=== PATIENT | male | born 1930 | race Caucasian/White ===

== ENCOUNTER 2016-04-07 | Emergency (ER) | payer MEDICARE ==
[~2016-04-07] VITALS: Ht 185.4 cm; Wt 72.0 kg
[~2016-04-07] MED LIST: ALLO100T PO; ALPR.25 PO; ATOR10TA15 PO; BETH25 PO; CARD180C5 PO; CHLOR50 PO; COZA50TA PO; FURO20TA PO; GLIM2TAB PO; LEVE250 PO; MAGN400T PO; METF750T PO; METO25TA3 PO; PROS5TAB PO; TAMS0.4C4 PO; WARF-18 PO; WARF4TAB51 PO
[2016-04-07 00:11] VITALS: BP 149/65; PULSE 87; RESP 18; TEMP 98.1; O2SAT 97
[2016-04-07] MEDS ORDERED: SODIUM CHLORIDE 0.9% FLUSH 5 ML FLUSH IVF PRN (00:15)
[2016-04-07 00:17] VITALS: RESP 18
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
[2016-04-07 02:37] LABS: AUTOMATED NEUTROPHIL # 10.2 TH/MM3 (1.8-7.7); BASOPHIL % 0.3 % (0.0-2.0); EOSINOPHIL # 0.2 TH/MM3 (0-0.4); EOSINOPHIL % 1.5 % (0.0-4.0); HEMATOCRIT 33.6 % (39.0-51.0); HEMO FLAGS DIFF FINAL; LYMPH % 6.2 % (9.0-44.0); LYMPHOCYTE # 0.7 TH/MM3 (1.0-4.8); MEAN CELL VOLUME 91.5 FL (80.0-100.0); MEAN CORPUSCULAR HEMOGLOBIN 31.6 PG (27.0-34.0); MEAN CORPUSCULAR HGB CONC 34.5 % (32.0-36.0); MONO % 6.2 % (0.0-8.0); NEUT % 85.8 % (16.0-70.0); PLATELET COUNT 221 TH/MM3 (150-450); RED BLOOD COUNT 3.67 MIL/MM3 (4.50-5.90); RED CELL DISTRIBUTION WIDTH 13.5 % (11.6-17.2); WHITE BLOOD COUNT 11.9 TH/MM3 (4.0-11.0)
[2016-04-07 02:45] LABS: APTT (PATIENT) 40.6 SEC (24.3-30.1); INTERNATIONAL NORMALIZED RATIO 3.1 RATIO; PROTHROMBIN TIME - PATIENT 36.4 SEC (9.8-11.6)
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
[2016-04-07 03:14] VITALS: BP 158/71; PULSE 68; RESP 16; O2SAT 98
[2016-04-07 03:14] LABS: BICARBONATE 24.6 MEQ/L (21.0-32.0); POTASSIUM 4.7 MEQ/L (3.5-5.1)
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
== END 2016-04-07 04:44 | disposition home or self-care (01) ==
LOC: NEPC
DX: S00.03XA Contusion of scalp, initial encounter (principal); R68.84 Jaw pain; M54.2 Cervicalgia; Z79.01 Long term (current) use of anticoagulants; E78.00 Pure hypercholesterolemia, unspecified; Z86.73 Personal history of transient ischemic attack (TIA), and cerebral infarction without residual deficits; E11.9 Type 2 diabetes mellitus without complications; I10 Essential (primary) hypertension; R55 Syncope and collapse; V00.831A Fall from motorized mobility scooter, initial encounter; Y93.89 Activity, other specified; Y92.89 Other specified places as the place of occurrence of the external cause; Y99.8 Other external cause status
CPT/HCPCS: 70450; 70486; 71010; 72125; 73502; 80048; 85025; 85610; 85730

== ENCOUNTER 2017-01-27 21:58 | Observation (INO) | payer MEDICARE ==
[~2017-01-27] VITALS: Ht 170.2 cm; Wt 70.0 kg
[2017-01-27 22:08] VITALS: BP 226/95; PULSE 96; RESP 19; TEMP 97.5; TEMP 99.5; O2SAT 96
[2017-01-27 22:41] VITALS: RESP 19; O2SAT 96
[2017-01-27 22:51] LABS: AUTOMATED NEUTROPHIL # 4.7 TH/MM3 (1.8-7.7); BASOPHIL % 0.4 % (0.0-2.0); EOSINOPHIL # 0.3 TH/MM3 (0-0.4); EOSINOPHIL % 3.8 % (0.0-4.0); HEMATOCRIT 33.3 % (39.0-51.0); HEMO FLAGS DIFF FINAL; LYMPH % 24.9 % (9.0-44.0); LYMPHOCYTE # 1.8 TH/MM3 (1.0-4.8); MEAN CELL VOLUME 92.9 FL (80.0-100.0); MEAN CORPUSCULAR HEMOGLOBIN 31.3 PG (27.0-34.0); MEAN CORPUSCULAR HGB CONC 33.7 % (32.0-36.0); MONO % 7.5 % (0.0-8.0); NEUT % 63.4 % (16.0-70.0); PLATELET COUNT 248 TH/MM3 (150-450); RED BLOOD COUNT 3.58 MIL/MM3 (4.50-5.90); RED CELL DISTRIBUTION WIDTH 14.1 % (11.6-17.2); WHITE BLOOD COUNT 7.4 TH/MM3 (4.0-11.0)
[2017-01-27 22:54] LABS: BLOOD, URINE NEG (NEG); COMMENT (UR) CULT NOT INDICATED; CULTURE IF INDICATED CULT NOT INDICATED; GLUCOSE,URINE NEG (NEG); KETONE, URINE NEG (NEG); MUCUS URINE FEW /lpf (OCC); NITRITE,URINE NEG (NEG); PH, URINE 6.5 (5.0-8.5); SQUAMOUS EPITHELIAL CELL URINE <1 /hpf (0-5); URINE COLOR LIGHT-YELLOW (YELLW/STRAW)
--- NOTE | 2017-01-27 22:59 | RADRPT ---
EXAM DATE/TIME: 01/27/2017 22:38 [facility] COMPARISON: CHEST SINGLE AP, April 07, 2016, 1:22. INDICATIONS : Short of breath and confusion. MEDICAL HISTORY : Congestive hearrt failure. Hypertension. Diabetes. SURGICAL HISTORY : None. ENCOUNTER: Initial ACUITY: 1 day PAIN SCORE: 0/10 LOCATION: Bilateral chest FINDINGS: There is focal opacity in the lateral left lung base, similar to prior. Multiple rib deformities rela sangeetha to old trauma. Right lung is grossly clear. Hernia contours are stable and satisfactory for techn ique and projection. CONCLUSION: Stable chest appearance Ray Pop MD on January 27, 2017 at 22:57 Board Certified Radiologist. This report was verified electronically.
[2017-01-27 23:07] LABS: ANION GAP 9 MEQ/L (5-15); AST (GOT) 10 U/L (15-37); BICARBONATE 24.8 MEQ/L (21.0-32.0); BLOOD UREA NITROGEN 22 MG/DL (7-18); CHLORIDE 96 MEQ/L (98-107); GLOMERULAR FILTRATION RATE 57 ML/MIN (>89); POTASSIUM 4.5 MEQ/L (3.5-5.1); SODIUM (NA) 130 MEQ/L (136-145)
[2017-01-27 23:12] LABS: ALKALINE PHOSPHATASE 83 U/L (45-117); ALT (GPT) 17 U/L (12-78); TOTAL BILIRUBIN ADULT 0.3 MG/DL (0.2-1.0)
[2017-01-27 23:13] LABS: CREATINE KINASE 26 U/L (39-308)
[2017-01-27 23:14] LABS: APTT (PATIENT) 29.9 SEC (24.3-30.1); INTERNATIONAL NORMALIZED RATIO 1.1 RATIO; PROTHROMBIN TIME - PATIENT 11.9 SEC (9.8-11.6)
--- NOTE | 2017-01-27 23:19 | RADRPT ---
EXAM DATE/TIME: 01/27/2017 23:07 [facility] COMPARISON: No previous studies available for comparison. INDICATIONS : Altered mental status. RADIATION DOSE: 33.72 CTDIvol (mGy) MEDICAL HISTORY : Cardiovascular disease. Renal calculi. Hypertension.Diabetes. CVA. SURGICAL HISTORY : Appendectomy. Prostatectomy. ENCOUNTER: Initial ACUITY: 1 day PAIN SCALE: 0/10 LOCATION: cranial TECHNIQUE: Multiple contiguous axial images were obtained of the head. Using automated exposure control and adj ustment of the mA and/or kV according to patient size, radiation dose was kept as low as reasonably a chievable to obtain optimal diagnostic quality images. DICOM format image data is available electro nically for review and comparison. FINDINGS: CEREBRUM: Remote infarct in the right basal ganglia with ex vacuo dilatation of the lateral ventricle. Scattere d areas of low-attenuation are seen throughout the white matter. There is cerebral atrophy. No eviden ce of midline shift, mass lesion, hemorrhage or acute infarction. No extra-axial fluid collections a re seen. POSTERIOR FOSSA: The cerebellum and brainstem are intact. The 4th ventricle is midline. The cerebellopontine angle i s unremarkable. EXTRACRANIAL: The visualized portion of the orbits is intact. SKULL: The calvaria is intact. No evidence of skull fracture. CONCLUSION: 1. Old right sided basal ganglia infarcts. 2. No acute intracranial abnormality. 3. Cerebral atrophy and chronic ischemic small vessel vasculopathy. David Lewis MD on January 27, 2017 at 23:15 Board Certified Radiologist. This report was verified electronically.
--- NOTE | 2017-01-27 23:48 | PD ---
HPI Chief Complaint: Altered Mental Status Time Seen by Provider: 22:11 Travel History International Travel<30 days: No Contact w/Intl Traveler<30days: No Traveled to known affect area: No History of Present Illness HPI The patient is an 86 year old male who presents to the [facility] emergency department with a history of reportedly not feeling well throughout the weekend according to his . The patient's reports that on Friday he was complaining of a headache over his right eye. She reports that she gave him Tylenol. She reports that he awoke in the night with an episode of nausea and vomiting. She reports that she took his temperature and he had an elevated temperature with a MAXIMUM TEMPERATURE of 100. She reports that on Friday he seemed listless and fatigued. The patient has increasing alteration of sensation according to his . She saw his primary care physician, Dr. Lin earlier today. The patient reportedly was diagnosed with pneumonia. The patient was given a prescription for antibiotic and started his first dose of Augmentin earlier this evening. The patient continued to get increasingly altered and agitated, therefore she decided to come into the emergency department for evaluation and treatment. The patient does have a prior history of altered mentation reportedly related to dehydration, as well as a hypertensive encephalopathy according to the record. 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 He reportedly gets around with the use of a ronald- walker and wheelchair. The patient on arrival is unable to provide any significant history. The patient appears agitated and is picking at the bed in the railing. When the patient is able to focus to answer questions, the patient will only answer yes or no to brief questions otherwise, the patient seems to be easily distracted. On review of systems otherwise, she denies him having any recent cough or congestion, neck pain, chest pain, shortness of breath, abdominal pain, diarrhea, urinary symptoms, or other focal neurologic symptoms. [facility] Past Medical History Narrative Medical The patient's past medical history is significant for a prior history of cerebrovascular accident with residual weakness of the left upper extremity, history of atrial fibrillation, history of seizure disorder, history of dementia , history of hypertension, hyperlipidemia, benign prostatic hypertrophy, history of skin cancer. Hx Anticoagulant Therapy: Yes Arthritis: Yes Asthma: Yes (POSSIBLE R/T ALLERGIES) Autoimmune Disease: No Blood Disorders: No Depression: Yes Heart Rhythm Problems: Yes (PREVIOUSLY DURING SPRING 2013) Cancer: Yes (SKIN, SURGICAL REMOVAL) Cardiovascular Problems: Yes High Cholesterol: Yes Chemotherapy: No Chest Pain: No Congestive Heart Failure: Yes COPD: No Cerebrovascular Accident: Yes Diabetes: Yes Patient Takes Glucophage: Yes Diminished Hearing: Yes (bilat hearing aid) Endocrine: Yes Gastrointestinal Disorders: Yes GERD: Yes Glaucoma: No Gout: Yes Genitourinary: Yes (ENLARGED PROSTATE) Headaches: No Hepatitis: No Hiatal Hernia: Yes Hypertension: Yes Immune Disorder: No Implanted Vascular Access Dvce: Yes Kidney Stones: Yes Medical other: Yes (back and neck problems,reflux,hiatel hernia,prostate disease) Musculoskeletal: Yes Neurologic: Yes Psychiatric: No Reproductive: No Respiratory: Yes Immunizations Current: Yes Migraines: No Radiation Therapy: No Renal Failure: No Seizures: No Sleep Apnea: No Thyroid Disease: No Ulcer: No Tetanus Vaccination: < 5 Years Past Surgical History Narrative Surgical Patient's past surgical history is significant for an appendectomy, left hip ORIF, skin cancer removal, bilateral cataract surgery, TURP Abdominal Surgery: No AICD: No Appendectomy: Yes Body Medical Devices: LEFT HIP HARDWARE SPRING 2013 Cardiac Surgery: No Ear Surgery: No Endocrine Surgery: No Eye Surgery: Yes (BILATERAL CATARACT) Genitourinary Surgery: Yes (TURP) Gynecologic Surgery: No Joint Replacement: No Neurologic Surgery: No Oral Surgery: No Pacemaker: No Prostatectomy: Yes Thoracic Surgery: No Other Surgery: Yes Social History Alcohol Use: No Tobacco Use: No Substance Use: No Allergies-Medications (Allergen,Severity, Reaction): Coded Allergies: azithromycin (Unverified Allergy, Severe, Rash, 01/27/17) diatrizoate meglumine (Unverified Allergy, Severe, Rash, 01/27/17) gadobenic acid (Unverified Allergy, Severe, Rash, 01/27/17) gadodiamide (Unverified Allergy, Severe, Rash, 01/27/17) gadoteridol (Unverified Allergy, Severe, Rash, 01/27/17) iodine (Unverified Allergy, Severe, Rash, 01/27/17) iodixanol (Unverified Allergy, Severe, Rash, 01/27/17) iohexol (Unverified Allergy, Severe, Rash, 01/27/17) levofloxacin (Unverified Allergy, Severe, Confusion, 01/27/17) lisinopril (Unverified Allergy, Severe, Rash, edema , 01/27/17) potassium iodide (Unverified Allergy, Severe, Rash, 01/27/17) povidone-iodine (Unverified Allergy, Severe, Rash, 01/27/17) sodium iodide (Unverified Allergy, Severe, Rash, 01/27/17) sodium iodide (Unverified Allergy, Severe, Rash, 01/27/17) meloxicam (Unverified Allergy, Unknown, Unknown, 01/27/17) penicillin G (Unverified Adverse Reaction, Severe, Rash, 01/27/17) Reported Meds & Prescriptions Reported Meds & Active Scripts Active Cozaar (Losartan Potassium) 50 Mg Tab 50 Mg PO Q12H Keppra (Levetiracetam) 250 Mg Tab 250 Mg PO Q12HR Chlorthalidone 50 Mg Tab 25 Mg PO DAILY Urecholine (Bethanechol Chloride) 25 Mg Tab 25 Mg PO Q8H Xanax (Alprazolam) 0.25 Mg Tab 0.25 Mg PO Q6H PRN Cardizem CD 24 HR (Diltiazem CD 24 HR) 180 Mg Caper 360 Mg PO DAILY Metoprolol Tartrate 25 Mg Tab 12.5 Mg PO BID Furosemide 20 Mg Tab 20 Mg PO DAILY Reported Tamsulosin (Tamsulosin HCl) 0.4 Mg Cap 0.4 Mg PO DAILY Warfarin 2 Mg Tab 2 Mg PO DAILY@1600 Warfarin 2.5 Mg Tab 2.5 Mg PO DAILY@1600 Atorvastatin (Atorvastatin Calcium) 10 Mg Tab 10 Mg PO DAILY Metformin ER (Metformin HCl) 750 Mg Emilia 750 Mg PO BID With evening meal Glimepiride 2 Mg Tab 2 Mg PO DAILY Take with breakfast or first main meal Magnesium Oxide 400 Mg Tab 400 Mg PO BID Allopurinol 100 Mg Tab 100 Mg PO DAILY Proscar (Finasteride) 5 Mg Tab 5 Mg PO DAILY Do not crush. Review of Systems ROS Limitations: Poor Historian Except as stated in HPI: all other systems reviewed are Neg General / Constitutional: Positive: Fever Eyes: No: Visual changes HENT: Positive: Headaches, No: Neck Pain Cardiovascular: No: Chest Pain or Discomfort Respiratory: No: Shortness of Breath Gastrointestinal: Positive: Nausea, Vomiting, No: Diarrhea, Abdominal Pain, Hematemesis, Hematochezia, Changes in Bowel Habits, Loss of Appetite Genitourinary: No: Dysuria Musculoskeletal: No: Myalgias, Pain Skin: No Rash Neurologic: Positive: Change in Mentation, No: Weakness, Focal Abnormalities, Slurred Speech, Sensory Disturbance Psychiatric: No: Depression Endocrine: No: Polydipsia Hematologic/Lymphatic: No: Easy Bruising Physical Exam Narrative General: The patient is a well-developed well-nourished male, agitated on arrival, picking at the bed sheets in the bed railing. The patient will answer yes or no questions, however he is easily distracted. He denies having any pain. Head and Neck exam: Head is normocephalic atraumatic. Eyes: EOMI, pupils are equal round and reactive to light. Nose: Midline septum with pink mucous membranes Mouth: Dentition unremarkable. Moist mucus membranes. Posterior oropharynx is not erythematous. No tonsillar hypertrophy. Uvula midline. Airway patent. Neck: No palpable lymphadenopathy. No nuchal rigidity. No thyromegaly. Cardiovascular: Regular rate and rhythm without murmurs, gallops, or rubs. Lungs: Clear to auscultation bilaterally. No wheezes, rhonchi, or rales. Abdomen: Soft, without tenderness to palpation in all 4 quadrants of the abdomen. No guarding, rebound, or rigidity. Normal bowel sounds are audible. No tenderness on palpation of McBurney's point.. Extremities: No clubbing, cyanosis, or edema. 2+ pulses in all 4 extremities. No calf tenderness on palpation. Back: No spinous process tenderness to palpation. No costovertebral angle tenderness to palpation. Neurologic Exam: The patient is oriented to person, however not place, time, or situation. The Patient has contracture of the left upper extremity related to residual weakness from a prior stroke. Skin Exam: No rash noted. Intact skin that is warm and dry. Data Data Last Documented VS Vital Signs Date Time Temp Pulse Resp B/P (MAP) Pulse Ox O2 Delivery O2 Flow Rate FiO2 01/28/17 00:48 98.7 81 20 166/68 (100) 95 Room Air Orders Orders Electrocardiogram (01/27/17 22:27) Complete Blood Count With Diff (01/27/17 22:27) Comprehensive Metabolic Panel (01/27/17 22:27) Creatine Kinase (Cpk) (01/27/17:) Ckmb (Isoenzyme) Profile (01/27/17) Troponin I (01/27/17) B-Type Natriuretic Peptide (01/27/17) Prothrombin Time / Inr (Pt) (01/27/17) Act Partial Throm Time (Ptt) (01/27/17) Blood Culture (01/27/17) Lipase (01/27/17) Urinalysis - C+S If Indicated (01/27/17) Cath For Specimen (01/27/17) Magnesium (Mg) (01/27/17) Chest, Single Ap (01/27/17) Ct Brain W/O Iv Contrast(Rout) (01/27/17:) Iv Access Insert/Monitor (01/27/17) Ecg Monitoring (01/27/17) Oximetry (01/27/17) Lactic Acid Sepsis Protocol (01/27/17:) Labetalol Inj (Trandate Inj) (01/28/17 00:00) Sodium Chlorid 0.9% 500 Ml Inj (Ns 500 M (01/28/17 00:45) Lorazepam Inj (Ativan Inj) (01/28/17 00:45) Admit Order (Ed Use Only) (01/28/17 00:57) Blood Splatter Analyst / Telemetry GEOFFREY.Q8H (01/28/17 00:57) Vital Signs (Adult) Q4H (01/28/17 00:57) Diet Npo (01/28/17 Breakfast) Activity Bed Rest (01/28/17 00:57) Notify Dr: Other (01/28/17 00:57) Sodium Chlor 0.9% 1000 Ml Inj (Ns 1000 M (01/28/17 01:00) Labs Laboratory Tests Test 01/27/17 22:30 01/27/17 22:40 White Blood Count 7.4 TH/MM3 Red Blood Count 3.58 MIL/MM3 Hemoglobin 11.2 GM/DL Hematocrit 33.3 % Mean Corpuscular Volume 92.9 FL Mean Corpuscular Hemoglobin 31.3 PG Mean Corpuscular Hemoglobin Concent 33.7 % Red Cell Distribution Width 14.1 % Platelet Count 248 TH/MM3 Mean Platelet Volume 7.7 FL Neutrophils (%) (Auto) 63.4 % Lymphocytes (%) (Auto) 24.9 % Monocytes (%) (Auto) 7.5 % Eosinophils (%) (Auto) 3.8 % Basophils (%) (Auto) 0.4 % Neutrophils # (Auto) 4.7 TH/MM3 Lymphocytes # (Auto) 1.8 TH/MM3 Monocytes # (Auto) 0.6 TH/MM3 Eosinophils # (Auto) 0.3 TH/MM3 Basophils # (Auto) 0.0 TH/MM3 CBC Comment DIFF FINAL Differential Comment Prothrombin Time 11.9 SEC Prothromb Time International Ratio 1.1 RATIO Activated Partial Thromboplast Time 29.9 SEC Blood Urea Nitrogen 22 MG/DL Creatinine 1.21 MG/DL Random Glucose 186 MG/DL Total Protein 7.6 GM/DL Albumin 3.7 GM/DL Calcium Level 9.1 MG/DL Magnesium Level 2.0 MG/DL Alkaline Phosphatase 83 U/L Aspartate Amino Transf (AST/SGOT) 10 U/L Alanine Aminotransferase (ALT/SGPT) 17 U/L Total Bilirubin 0.3 MG/DL Sodium Level 130 MEQ/L Potassium Level 4.5 MEQ/L Chloride Level 96 MEQ/L Carbon Dioxide Level 24.8 MEQ/L Anion Gap 9 MEQ/L Estimat Glomerular Filtration Rate 57 ML/MIN Lactic Acid Level 1.9 mmol/L Total Creatine Kinase 26 U/L Troponin I LESS THAN 0.02 NG/ML B-Type Natriuretic Peptide 114 PG/ML Lipase 78 U/L Urine Color LIGHT-YELLOW Urine Turbidity CLEAR Urine pH 6.5 Urine Specific [place] 1.009 Urine Protein TRACE mg/dL Urine Glucose (UA) NEG mg/dL Urine Ketones NEG mg/dL Urine Occult Blood NEG Urine Nitrite NEG Urine Bilirubin NEG Urine Urobilinogen LESS THAN 2.0 MG/DL Urine Leukocyte Esterase NEG Urine RBC 2 /hpf Urine WBC 1 /hpf Urine Squamous Epithelial Cells <1 /hpf Urine Mucus FEW /lpf Microscopic Urinalysis Comment CULT NOT INDICATED MDM Medical Decision Making Medical Screen Exam Complete: Yes Emergency Medical Condition: Yes Medical Record Reviewed: Yes Interpretation(s) Last Impressions Head CT 01/27/173 Signed Impressions: Service Date/Time: Friday, January 27, 2017 23:07 - CONCLUSION: 1. Old right sided basal ganglia infarcts. 2. No acute intracranial abnormality. 3. Cerebral atrophy and chronic ischemic small vessel vasculopathy. David Lewis MD Chest X-Ray 01/27/177 Signed Impressions: Service Date/Time: Friday, January 27, 2017 22:38 - CONCLUSION: Stable chest appearance Ray Pop MD Differential Diagnosis Sepsis related encephalopathy, versus pneumonia, versus urinary tract infection , versus intracranial abnormality, versus progression of dementia Narrative Course During the course of the patients emergency department visit, the patients history, examination, and differential diagnosis were reviewed with the patient. The patient was placed on a groundwater monitoring technician with oximetry and frequent blood pressure monitoring. The patient had IV access obtained and blood work sent for analysis. An ECG was done on arrival. The patient's ECG reveals a sinus rhythm with a right bundle branch block, no other acute ST segment changes. The patient was initially provided a 500 mL bolus 1. Labetalol 10 mg IV for hypertension, and Ativan 0.5 mg IV for continued agitation The patients laboratory studies were reviewed and remarkable for a white count of 7.4, hemoglobin 11.2, platelets 248 with a normal differential , CMP is remarkable for sodium of 1:30, chloride 96, BUN 22, glucose 186, AST 10, CPK 26 , troponin I less than 0.02, BNP 114, lipase 78, lactic acid 1.9, PT 11.9, PTT 29.9, urinalysis is unremarkable. Chest x-ray shows a stable chest x-ray with increased density in the left lung base which has been present previously and deformity related to prior rib fractures. CT scan of the brain shows old right sided basal ganglia infarcts, no acute intracranial abnormality, cerebral atrophy and chronic ischemic small vessel vasculopathy. The patient was reexamined and continued to be agitated, altered according to his . The patient will be admitted to the hospital for continued evaluation and treatment. The patients results were discussed with the patient, including the plan of care. I explained that further testing and/ or monitoring is indicated based on the patients history, examination, and/ or laboratory findings. Therefore, I recommended admission for additional evaluation. The patient expressed understanding and was agreeable with this plan. The patient was admitted to the hospital in guarded condition and sent to a bed under the care of the [place] [facility] hospitalist service. Physician Communication Physician Communication The patient's case is discussed with Dr. Emanuel who did agree to admit the patient for further evaluation and treatment at this time. Diagnosis Primary Impression: Altered mental status Qualified Codes: R41.0 - Disorientation, unspecified Admitting Information Admitting Physician Requests: Observation Nicolette Lemus MD Jan 27, 2017 23:48
[2017-01-28] VITALS (9 sets, daily range): BP systolic 123–166; BP diastolic 66–73; PULSE 58–81; RESP 16–20; TEMP 97.9–98.7; O2SAT 94–96
[2017-01-28] MEDS ORDERED: LABETALOL HCL 100 MG/20 ML VIAL IV PUSH ONE
[2017-01-28] MEDS ORDERED: LORazepam 2 MG/ML VIAL IV PUSH ONE (00:45)
[2017-01-28] MEDS ORDERED: SODIUM CHLORID 0.9% 500 ML INJ 500 ML IV ONE (00:45)
[2017-01-28] MEDS ORDERED: SODIUM CHLOR 0.9% 1000 ML INJ 1,000 ML IV SCH (01:00)
--- NOTE | 2017-01-28 11:06 | HHI.HP ---
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 This past summer patient suffered a a left hip fracture and it was at [facility] recuperating or over a month. Patient 's course of recovery was complicated by hospitalization for altered mental status and patient was found to have Escherichia coli ESBL. Patient was admitted through the [facility] with complaint of earache for several days centered at right eye. Patient's also reports difficulties with nausea and vomiting. Also elevated temperature with MAXIMUM TEMPERATURE of 100 Fahrenheit. Patient saw his primary care physician was diagnosed with pneumonia and started on Augmentin. Chest x-ray obtained the ER did not show infiltrate at this time. Patient's physical exam by the ER physician noted altered mentation. There was some degree of dehydration on his basic metabolic panel. Patient admitted to [facility] for IV hydration and further evaluation and treatment. Review of Systems Constitutional: COMPLAINS OF: Fever, DENIES: Diaphoretic episodes, Fatigue, Weight gain, Weight loss, Chills, Dizziness, Change in appetite, Night Sweats Endocrine: DENIES: Heat/cold intolerance, Polydipsia, Polyuria, Polyphagia Eyes: DENIES: Blurred vision, Diplopia, Eye inflammation, Eye pain, Vision loss , Photosensitivity, Double Vision Ears, nose, mouth, throat: DENIES: Tinnitus, Hearing loss, Vertigo, Nasal discharge, Oral lesions, Throat pain, Hoarseness, Ear Pain, Running Nose, Epistaxis, Sinus Pain, Toothache, Odynophagia Respiratory: DENIES: Apneas, Cough, Snoring, Wheezing, Hemoptysis, Sputum production, Shortness of breath Cardiovascular: DENIES: Chest pain, Palpitations, Syncope, Dyspnea on Exertion , PND, Lower Extremity Edema, Orthopnea, Claudication Gastrointestinal: DENIES: Abdominal pain, Black stools, Bloody stools, BRB per rectum, Constipation, Diarrhea, GERD, Nausea, Reflux, Vomiting, Difficulty Swallowing, Anorexia Genitourinary: DENIES: Urinary frequency, Urinary incontinence, Urgency, Hematuria, Dysuria, Nocturia Musculoskeletal: DENIES: Joint pain, Muscle aches, Stiffness, Joint Swelling, Back pain, Neck pain Integumentary: DENIES: Abnormal pigmentation, Nail changes, Pruritus, Rash Hematologic/lymphatic: DENIES: Bruising, Lymphadenopathy Immunologic/allergic: DENIES: Eczema, Urticaria Neurologic: DENIES: Abnormal gait, Headache, Localized weakness, Paresthesias, Seizures, Speech Problems, Tremor, Poor Balance Psychiatric: DENIES: Anxiety, Confusion, Mood changes, Depression, Hallucinations, Agitation, Suicidal Ideation, Homicidal Ideation, Delusions, History of Bipolar, History of Schizophrenia Past Family Social History Past Medical History 1) hypertension 2) diabetes, type II 3) 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 4) seizure disorder 5) BPH 6) history of DVT 7) atrial fibrillation, chronic 8) osteoporosis 9) gout 10) hyperlipidemia Past Surgical History 1) left hip repair Reported Medications Reported Meds & Active Scripts Active Cozaar (Losartan Potassium) 50 Mg Tab 50 Mg PO Q12H Keppra (Levetiracetam) 250 Mg Tab 250 Mg PO Q12HR Chlorthalidone 50 Mg Tab 25 Mg PO DAILY Urecholine (Bethanechol Chloride) 25 Mg Tab 25 Mg PO Q8H Xanax (Alprazolam) 0.25 Mg Tab 0.25 Mg PO Q6H PRN Cardizem CD 24 HR (Diltiazem CD 24 HR) 180 Mg Caper 360 Mg PO DAILY Metoprolol Tartrate 25 Mg Tab 12.5 Mg PO BID Furosemide 20 Mg Tab 20 Mg PO DAILY Reported Tamsulosin (Tamsulosin HCl) 0.4 Mg Cap 0.4 Mg PO DAILY Warfarin 2 Mg Tab 2 Mg PO DAILY@1600 Warfarin 2.5 Mg Tab 2.5 Mg PO DAILY@1600 Atorvastatin (Atorvastatin Calcium) 10 Mg Tab 10 Mg PO DAILY Metformin ER (Metformin HCl) 750 Mg Emilia 750 Mg PO BID With evening meal Glimepiride 2 Mg Tab 2 Mg PO DAILY Take with breakfast or first main meal Magnesium Oxide 400 Mg Tab 400 Mg PO BID Allopurinol 100 Mg Tab 100 Mg PO DAILY Proscar (Finasteride) 5 Mg Tab 5 Mg PO DAILY Do not crush. Allergies: Coded Allergies: azithromycin (Unverified Allergy, Severe, Rash, 01/27/17) diatrizoate meglumine (Unverified Allergy, Severe, Rash, 01/27/17) gadobenic acid (Unverified Allergy, Severe, Rash, 01/27/17) gadodiamide (Unverified Allergy, Severe, Rash, 01/27/17) gadoteridol (Unverified Allergy, Severe, Rash, 01/27/17) iodine (Unverified Allergy, Severe, Rash, 01/27/17) iodixanol (Unverified Allergy, Severe, Rash, 01/27/17) iohexol (Unverified Allergy, Severe, Rash, 01/27/17) levofloxacin (Unverified Allergy, Severe, Confusion, 01/27/17) lisinopril (Unverified Allergy, Severe, Rash, edema , 01/27/17) potassium iodide (Unverified Allergy, Severe, Rash, 01/27/17) povidone-iodine (Unverified Allergy, Severe, Rash, 01/27/17) sodium iodide (Unverified Allergy, Severe, Rash, 01/27/17) sodium iodide (Unverified Allergy, Severe, Rash, 01/27/17) meloxicam (Unverified Allergy, Unknown, Unknown, 01/27/17) penicillin G (Unverified Adverse Reaction, Severe, Rash, 01/27/17) Family History Noncontributory Social History - - Patient has 2 grown sons, one lives locally and the other in [facility]. The son who lives in [facility] is an RN - No tobacco use - No alcohol use - No illicit street drugs Physical Exam Vital Signs Vital Signs Date Time Temp Pulse Resp B/P (MAP) Pulse Ox O2 Delivery O2 Flow Rate FiO2 01/28/17 08:22 98.1 70 16 133/72 (92) 96 01/28/17 08:00 63 01/28/17 04:13 98.4 67 17 165/67 (99) 95 01/28/17 02:50 01/28/17 00:48 98.7 81 20 166/68 (100) 95 Room Air 01/27/17 22:41 19 96 Room Air 01/27/17 22:10 96 19 96 Room Air 01/27/17 22:08 97.5 96 19 226/95 (138) 96 Physical Exam GENERAL: This is a well-nourished, well-developed patient, in no apparent distress. SKIN: No rashes, ecchymoses or lesions. Cool and dry. HEAD: Atraumatic. Normocephalic. No temporal or scalp tenderness. EYES: Pupils equal round and reactive. Extraocular motions intact. No scleral icterus. No injection or drainage. ENT: Nose without bleeding, purulent drainage or septal hematoma. Throat without erythema, tonsillar hypertrophy or exudate. Uvula midline. Airway patent. NECK: Trachea midline. No JVD or lymphadenopathy. Supple, nontender, no meningeal signs. CARDIOVASCULAR: Regular rate and rhythm without murmurs, gallops, or rubs. RESPIRATORY: Clear to auscultation. Breath sounds equal bilaterally. No wheezes , rales, or rhonchi. GASTROINTESTINAL: Abdomen soft, non-tender, nondistended. No hepato-splenomegaly , or palpable masses. No guarding. MUSCULOSKELETAL: Extremities without clubbing, cyanosis, or edema. No joint tenderness, effusion, or edema noted. No calf tenderness. Negative Homans sign bilaterally. NEUROLOGICAL: Awake and alert. Cranial nerves II through XII intact. Motor and sensory grossly within normal limits. Five out of 5 muscle strength in all muscle groups. Normal speech. Laboratory Laboratory Tests Test 01/27/17 22:30 01/27/17 22:40 White Blood Count 7.4 Red Blood Count 3.58 Hemoglobin 11.2 Hematocrit 33.3 Mean Corpuscular Volume 92.9 Mean Corpuscular Hemoglobin 31.3 Mean Corpuscular Hemoglobin Concent 33.7 Red Cell Distribution Width 14.1 Platelet Count 248 Mean Platelet Volume 7.7 Neutrophils (%) (Auto) 63.4 Lymphocytes (%) (Auto) 24.9 Monocytes (%) (Auto) 7.5 Eosinophils (%) (Auto) 3.8 Basophils (%) (Auto) 0.4 Neutrophils # (Auto) 4.7 Lymphocytes # (Auto) 1.8 Monocytes # (Auto) 0.6 Eosinophils # (Auto) 0.3 Basophils # (Auto) 0.0 CBC Comment DIFF FINAL Differential Comment Prothrombin Time 11.9 Prothromb Time International Ratio 1.1 Activated Partial Thromboplast Time 29.9 Blood Urea Nitrogen 22 Creatinine 1.21 Random Glucose 186 Total Protein 7.6 Albumin 3.7 Calcium Level 9.1 Magnesium Level 2.0 Alkaline Phosphatase 83 Aspartate Amino Transf (AST/SGOT) 10 Alanine Aminotransferase (ALT/SGPT) 17 Total Bilirubin 0.3 Sodium Level 130 Potassium Level 4.5 Chloride Level 96 Carbon Dioxide Level 24.8 Anion Gap 9 Estimat Glomerular Filtration Rate 57 Lactic Acid Level 1.9 Total Creatine Kinase 26 Troponin I LESS THAN 0.02 B-Type Natriuretic Peptide 114 Lipase 78 Urine Color LIGHT-YELLOW Urine Turbidity CLEAR Urine pH 6.5 Urine Specific [place] 1.009 Urine Protein TRACE Urine Glucose (UA) NEG Urine Ketones NEG Urine Occult Blood NEG Urine Nitrite NEG Urine Bilirubin NEG Urine Urobilinogen LESS THAN 2.0 Urine Leukocyte Esterase NEG Urine RBC 2 Urine WBC 1 Urine Squamous Epithelial Cells <1 Urine Mucus FEW Microscopic Urinalysis Comment CULT NOT INDICATED Date/Time Source Procedure Growth Status 01/27/17 22:30 Blood Peripheral Aerobic Blood Culture Pending Received 01/27/17 22:30 Blood Peripheral Anaerobic Blood Culture Pending Received Result Diagram: 01/27/17222901/27/172229 Imaging Last Impressions Head CT 01/27/172226 Signed Impressions: Service Date/Time: Friday, January 27, 2017 23:07 - CONCLUSION: 1. Old right sided basal ganglia infarcts. 2. No acute intracranial abnormality. 3. Cerebral atrophy and chronic ischemic small vessel vasculopathy. David Lewis MD Chest X-Ray 01/27/172226 Signed Impressions: Service Date/Time: Friday, January 27, 2017 22:38 - CONCLUSION: Stable chest appearance Ray Pop MD Septic Shock Reassessment Heart: Regular rate and rhythm Lungs: Clear Skin: Warm Peripheral Pulses: Bounding Right Radial Bounding Left Radial Bounding Right Popliteal Bounding Left Popliteal Bounding Right Dorsalis Pedis Bounding Left Dorsalis Pedis Bounding Right Posterior Tibial Bounding Left Posterior Tibial Capillary Refill: Brisk Caprini VTE Risk Assessment Caprini VTE Risk Assessment: Mod/High Risk (score >= 2) Caprini Risk Assessment Model Point Value = 1 Point Value = 2 Point Value = 3 Point Value = 5 Age 41-60 Minor surgery BMI > 25 kg/m2 Swollen legs Varicose veins or History of unexplained or recurrent spontaneous Oral contraceptives or hormone replacement Sepsis (< 1 month) Serious lung disease, including pneumonia (< 1 month) Abnormal pulmonary function Acute myocardial infarction Congestive heart failure (< 1 month) History of inflammatory bowel disease Medical patient at bed rest Age 61-74 Arthroscopic surgery Major open surgery (> 45 min) Laparoscopic surgery (> 45 min) Malignancy Confined to bed (> 72 hours) Immobilizing plaster cast Central venous access Age >= 75 History of VTE Family history of VTE Factor V Leiden Prothrombin [id number] Lupus anticoagulant Anticardiolipin antibodies Elevated serum homocysteine Heparin-induced thrombocytopenia Other congenital or acquired thrombophilia Stroke (< 1 month) Elective arthroplasty Hip, pelvis, or leg fracture Acute spinal cord injury (< 1 month) Prophylaxis Regimen Total Risk Factor Score Risk Level Prophylaxis Regimen 0-1 Low Early ambulation 2 Moderate Order ONE of the following: *Sequential Compression Device (SCD) *Heparin 5000 units SQ BID 3-4 Higher Order ONE of the following medications: *Heparin 5000 units SQ TID *Enoxaparin/Lovenox 40 mg SQ daily (WT < 150 kg, CrCl > 30 mL/min) *Enoxaparin/Lovenox 30 mg SQ daily (WT < 150 kg, CrCl > 10-29 mL/min) *Enoxaparin/Lovenox 30 mg SQ BID (WT < 150 kg, CrCl > 30 mL/min) AND/OR *Sequential Compression Device (SCD) 5 or more Highest Order ONE of the following medications: *Heparin 5000 units SQ TID (Preferred with Epidurals) *Enoxaparin/Lovenox 40 mg SQ daily (WT < 150 kg, CrCl > 30 mL/min) *Enoxaparin/Lovenox 30 mg SQ daily (WT < 150 kg, CrCl > 10-29 mL/min) *Enoxaparin/Lovenox 30 mg SQ BID (WT < 150 kg, CrCl > 30 mL/min) AND *Sequential Compression Device (SCD) Assessment and Plan Problem List: (1) Altered mental status ICD Codes: R41.82 - Altered mental status, unspecified Status: Acute Plan: - Patient has had no fever since admission - There is no leukocytosis - Chest x-ray (01/27/17) showed no infiltrate - Blood cultures are pending - Vital illness might be a consideration - Dehydration likely contributed to altered mental status - Patient has received intravenous fluids, will continue - Hypertensive encephalopathy maybe contributed to altered mental status - Pt is more confused then when I saw him this summer - obtain repeat MRI brain, r/o new ischemia - obtain tsh, free t4, b12, folate, rpr - Continue observation (2) Dehydration ICD Codes: E86.0 - Dehydration Status: Acute (3) A-fib ICD Codes: I48.91 - A-fib Status: Chronic (4) DM type 2 (diabetes mellitus, type 2) ICD Codes: E11.9 - DM type 2 (diabetes mellitus, type 2) Status: Chronic (5) BPH (benign prostatic hyperplasia) ICD Codes: N40.0 - Benign prostatic hyperplasia without lower urinary tract symptoms Status: Acute (6) HTN (hypertension) ICD Codes: I10 - Essential (primary) hypertension Status: Acute Problem Qualifiers (1) Altered mental status: Qualified Codes: R41.0 - Disorientation, unspecified Kimo Rivera DO Jan 28, 2017 11:06
[2017-01-28] MEDS ORDERED: GLIMEPIRIDE 2 MG TAB PO SCH (11:15)
[2017-01-28] MEDS ORDERED: ALPRAZolam 0.25 MG TAB PO PRN (11:15)
[2017-01-28] MEDS ORDERED: FUROSEMIDE 20 MG TAB PO SCH (11:15)
--- NOTE | 2017-01-28 12:52 | MB ---
cc: RAMON CASE MD DATE OF CONSULTATION 01/28/2017 REASON FOR CONSULTATION This is an 86-year-old gentleman who was admitted to the hospital for altered mental status. He has a history altered mental status in the past as well as CVA and there was some question of new CVA. CT scans have been done and he was noted to have a mildly elevated BUN to creatinine ratio and fluids have been initiated with return to his normal mental status. There is a history of chronic atrial fibrillation, as well as stroke in the past. He has not been felt to be a candidate for anticoagulation because of his comorbid conditions and preventative for a fall. He does have a history of falling with a fractured hip this past summer. He had been maintained on Keppra, Cardizem, metoprolol and furosemide at home, as well as warfarin. No chest pain or shortness of breath has been present. He is otherwise asymptomatic. LABORATORY EXAMINATION Has been as above with a BUN of 22 and a creatinine of 1.0. His INR is subtherapeutic at 1.1. PHYSICAL EXAM Blood pressure is currently 133/72. It was as high as 166/70 on admission. He is afebrile. GENERAL: He is awake and alert and responsive and oriented to time and place. NECK: There is no neck vein distension. LUNGS: Clear. CARDIOVASCULAR: Exam reveals regular rate and rhythm. There is no significant murmur or gallop noted. EXTREMITIES: Reveal no edema. ASSESSMENT Patient has chronic atrial fibrillation and I feel that he probably should be on chronic anticoagulant therapy in view of his high stroke risk. Certainly agree with fluids as he does appear to be dehydrated and this has already apparently had a good possible fact of his mental status. I certainly agree with discontinuing his Lasix. His BNP is 114 and I do not feel that he is going to need chronic Lasix therapy. I will be happy to follow along with you. MD LOLI Rodriguez/ADAMA /12:19 PM /12:44 PM
[2017-01-28] MEDS: INSULIN ASPART SUPPLEMENTAL SCALE SQ SCH ×3 (13:00→21:00)
[2017-01-28] MEDS ORDERED: GLUCAGON 1 MG/ML VIAL OTHER PRN (13:00)
[2017-01-28] MEDS ORDERED: DEXTROSE 50% IN WATER 50 ML VIAL(D50) IV PUSH PRN (13:00)
[2017-01-28] MEDS ORDERED: PILL SPLITTER OTHER PRN (13:00)
[2017-01-28] MEDS: NS + KCL 20 MEQ INJ 1,000 ML IV SCH (13:26)
[2017-01-28] MEDS: ALLOPURINOL 100 MG TAB PO SCH (13:26)
[2017-01-28] MEDS: FINASTERIDE 5 MG TAB PO SCH (13:26)
[2017-01-28] MEDS: ATORVASTATIN 10 MG TAB PO SCH (13:27)
[2017-01-28] MEDS: RIVAROXABAN 20 MG TAB PO SCH (13:27)
[2017-01-28] MEDS: DILTIAZEM-CD 180 MG CAP ER PO SCH (13:27)
[2017-01-28] MEDS: MAGNESIUM OXIDE 400 MG TAB PO SCH ×2 (13:27→20:34)
[2017-01-28] MEDS: LOSARTAN 50 MG TAB PO SCH ×2 (13:28→20:34)
[2017-01-28] MEDS: TAMSULOSIN HCL 0.4 MG CAP PO SCH (13:28)
[2017-01-28] MEDS: CHLORTHALIDONE 50 MG TAB PO SCH (15:11)
[2017-01-28] MEDS: METOPROLOL TARTRATE 25 MG TAB PO SCH ×2 (15:11→20:34)
[2017-01-28] MEDS: levETIRAcetam 250 MG TAB PO SCH ×2 (15:12→20:36)
[2017-01-28] MEDS: BETHANECHOL CHL 25 MG TAB PO SCH ×2 (15:12→20:34)
--- NOTE | 2017-01-28 15:19 | EKG ---
Date Performed: 01/27/2017 Time Performed: 22:09:34 PTAGE: 86 years EKG: Sinus rhythm RIGHT BUNDLE BRANCH BLOCK ABNORMAL ECG Compared to prior tracing no significant change PREVIOUS TRACING : 03/09/2016 14.57.09 DOCTOR: Neo Rebolledo Interpretating Date/Time 01/28/2017 15:19:02
[2017-01-28] MEDS ORDERED: WARFARIN SOD 2 MG TAB PO SCH (16:00)
[2017-01-28] MEDS ORDERED: WARFARIN SOD 2.5 MG TAB PO SCH (16:00)
--- NOTE | 2017-01-28 16:24 | RADRPT ---
EXAM DATE/TIME: 01/28/2017 15:40 [facility] COMPARISON: MRI BRAIN W/O CONTRAST, September 09, 2015, 15:04. INDICATIONS : Altered mental status. MEDICAL HISTORY : Stroke SURGICAL HISTORY : Tonsillectomy. Left hip. ENCOUNTER: Initial ACUITY: 1 day PAIN SCORE: 0/10 LOCATION: head TECHNIQUE: Multiplanar, multisequence MRI of the brain was performed without contrast. FINDINGS: Examination is limited by patient motion. CEREBRUM: Redemonstration of remote large right basal ganglia lacunar infarct with ex vacuo dilatation of the r ight lateral ventricle. Moderate to severe diffuse cerebral atrophy. The ventricles are otherwise nor mal in size for degree of atrophy. No evidence of midline shift, mass lesion, hemorrhage or acute inf arction. No extraaxial fluid collections are seen. The pituitary gland and suprasellar cistern are normal in configuration. WHITE MATTER: Moderate severe periventricular and deep white matter scattered T2 prolongation consistent with white matter ischemic demyelination. POSTERIOR FOSSA: The cerebellum and brainstem are intact. The 4th ventricle is midline. The cerebellopontine angle is unremarkable. The cerebellar tonsils are normal in position. DIFFUSION IMAGING: No focal areas of restricted diffusion are seen. No evidence of acute infarction. EXTRACRANIAL: The visualized portions of the orbits and paranasal sinuses are unremarkable. CONCLUSION: 1. No acute intracranial abnormality. Specifically, no evidence for acute ischemia/infarction. 2. Redemonstration of remote large right basal ganglia lacunar infarct with ex vacuo dilatation of th e right lateral ventricle. 3. Senescent changes with moderate to severe periventricular and deep white matter small vessel ische cezar demyelination. Ho Mclain MD on January 28, 2017 at 16:15 Board Certified Radiologist. This report was verified electronically.
[2017-01-28] MEDS: metFORMIN HCL 500 MG TAB PO SCH (18:05)
[2017-01-28 19:31] LABS: FREE T4 1.25 NG/DL (0.76-1.46)
[2017-01-29 00:27] VITALS: BP 202/81; PULSE 61; RESP 16; TEMP 98.3; O2SAT 95
[2017-01-29 00:37] VITALS: BP 184/72
[2017-01-29] MEDS: NS + KCL 20 MEQ INJ 1,000 ML IV SCH ×2 (00:46→12:32)
[2017-01-29] MEDS ORDERED: LORazepam 2 MG/ML VIAL IV ONE (01:30)
[2017-01-29 03:41] VITALS: PULSE 87; RESP 17; TEMP 98.4; O2SAT 95
[2017-01-29] MEDS: BETHANECHOL CHL 25 MG TAB PO SCH ×2 (05:49→14:41)
[2017-01-29 08:02] VITALS: BP 177/79; PULSE 84; RESP 20; TEMP 97.6; O2SAT 94
[2017-01-29] MEDS: INSULIN ASPART SUPPLEMENTAL SCALE SQ SCH ×2 (08:12→12:00)
[2017-01-29] MEDS: ALLOPURINOL 100 MG TAB PO SCH (08:13)
[2017-01-29] MEDS: RIVAROXABAN 20 MG TAB PO SCH (08:13)
[2017-01-29] MEDS: DILTIAZEM-CD 180 MG CAP ER PO SCH (08:13)
[2017-01-29] MEDS: CHLORTHALIDONE 50 MG TAB PO SCH (08:14)
[2017-01-29] MEDS: ATORVASTATIN 10 MG TAB PO SCH (08:15)
[2017-01-29] MEDS: levETIRAcetam 250 MG TAB PO SCH (08:16)
[2017-01-29] MEDS: FINASTERIDE 5 MG TAB PO SCH (08:16)
[2017-01-29] MEDS: METOPROLOL TARTRATE 25 MG TAB PO SCH (08:18)
[2017-01-29] MEDS: LOSARTAN 50 MG TAB PO SCH (08:18)
[2017-01-29] MEDS: TAMSULOSIN HCL 0.4 MG CAP PO SCH (08:18)
[2017-01-29] MEDS: MAGNESIUM OXIDE 400 MG TAB PO SCH (08:19)
[2017-01-29] MEDS: metFORMIN HCL 500 MG TAB PO SCH (08:22)
[2017-01-29 08:50] VITALS: PULSE 83
[2017-01-29 11:19] VITALS: BP 168/77; PULSE 64; RESP 18; TEMP 96.8; O2SAT 97
--- NOTE | 2017-01-29 11:44 | HHI.PR ---
Subjective Remarks Pt sleeping, but does awaken to voice. Pt with poor appetite, and PO intake. Pt denies c/o specific pain. No chest pain, no sob, no n/v. Objective Vitals Vital Signs Date Time Temp Pulse Resp B/P (MAP) Pulse Ox O2 Delivery O2 Flow Rate FiO2 01/29/17 11:19 96.8 64 18 168/77 (107) 97 01/29/17 08:50 83 01/29/17 08:02 97.6 84 20 177/79 (111) 94 01/29/17 03:41 98.4 87 17 95 01/29/17 00:37 184/72 (109) 01/29/17 00:27 98.3 61 16 202/81 (121) 95 01/28/17 23:00 60 01/28/17 20:06 98.0 60 17 156/67 (96) 96 01/28/17 18:16 97.9 58 16 136/73 (94) 95 01/28/17 12:13 98.0 64 16 123/66 (85) 94 01/28/17 12:00 58 Result Diagram: 01/27/17222901/27/172229 Imaging Last Impressions Brain MRI 01/28/17 0000 Signed Impressions: Service Date/Time: Saturday, January 28, 2017 15:40 - CONCLUSION: 1. No acute intracranial abnormality. Specifically, no evidence for acute ischemia/infarction. 2. Redemonstration of remote large right basal ganglia lacunar infarct with ex vacuo dilatation of the right lateral ventricle. 3. Senescent changes with moderate to severe periventricular and deep white matter small vessel ischemic demyelination. Ho Mclain MD Head CT 01/27/172226 Signed Impressions: Service Date/Time: Friday, January 27, 2017 23:07 - CONCLUSION: 1. Old right sided basal ganglia infarcts. 2. No acute intracranial abnormality. 3. Cerebral atrophy and chronic ischemic small vessel vasculopathy. David Lewis MD Chest X-Ray 01/27/172226 Signed Impressions: Service Date/Time: Friday, January 27, 2017 22:38 - CONCLUSION: Stable chest appearance Ray Pop MD Objective Remarks GENERAL: This is a well-nourished, well-developed patient, in no apparent distress. CARDIOVASCULAR: Regular rate and rhythm without murmurs, gallops, or rubs. RESPIRATORY: Clear to auscultation. Breath sounds equal bilaterally. No wheezes , rales, or rhonchi. GASTROINTESTINAL: Abdomen soft, non-tender, nondistended. Normal active bowel sounds MUSCULOSKELETAL: Extremities without clubbing, cyanosis, or edema. NEURO: A&O x 2 A/P Problem List: (1) Altered mental status ICD Codes: R41.82 - Altered mental status, unspecified Status: Acute Plan: - Patient has had no fever since admission - There is no leukocytosis - Chest x-ray (01/27/17) showed no infiltrate - Blood cultures (01/27/17) --> no growth at 2 days - Vital illness might be a consideration - Dehydration likely contributed to altered mental status - Patient has received intravenous fluids, will continue - Hypertensive encephalopathy maybe contributed to altered mental status - Pt is more confused then when I saw him this summer - MRI brain (01/28/17) --> no acute changes - tsh, free t4, b12, folate, rpr --> WNL - pt is in decline d/t advanced age and multiple medical problems - /son request hospice - Case d/w [facility]. - pt with difficulties with agitation - Pt will discharge to the Hospice care center. - see discharge orders Problem Qualifiers (1) Altered mental status: Qualified Codes: R41.0 - Disorientation, unspecified Kimo Rivera DO Jan 29, 2017 11:44
[2017-01-29] MEDS ORDERED: 1/2 NS + KCL 20 MEQ INJ 1,000 ML IV SCH (11:45)
[2017-01-29] MEDS ORDERED: cloNIDine HCL 0.2 MG TAB PO PRN (12:00)
== END 2017-01-29 16:27 | disposition home or self-care (01) ==
LOC: NEPE 21:58 → NEDA 01-28 01:01 → NEPHCDU 01-28 02:33
PROVIDERS: ADMIT Hospitalist; ATTEND Hospitalist
DX: R41.82 Altered mental status, unspecified (principal); E86.0 Dehydration; R11.2 Nausea with vomiting, unspecified; R51 Headache; R53.83 Other fatigue; J18.9 Pneumonia, unspecified organism; I48.2 Chronic atrial fibrillation; I69.334 Monoplegia of upper limb following cerebral infarction affecting left non-dominant side; E11.9 Type 2 diabetes mellitus without complications; G40.909 Epilepsy, unspecified, not intractable, without status epilepticus; N40.0 Benign prostatic hyperplasia without lower urinary tract symptoms; M81.0 Age-related osteoporosis without current pathological fracture; M10.9 Gout, unspecified; E78.5 Hyperlipidemia, unspecified; I11.0 Hypertensive heart disease with heart failure; I50.9 Heart failure, unspecified; Z86.718 Personal history of other venous thrombosis and embolism
CPT/HCPCS: 70450; 70551; 71010; 76937; 80053; 81001; 82140; 82550; 82607; 82746; 82948; 83605; 83690; 83735; 83880; 84439; 84443; 84484; 85025; 85610; 85730; 86592; 87040; 93005; 96361; 96365; 96366; 96372; 96375; 97162; 99285; G0378; G8987; G8988; J1815; J2060; J3480; J7030; J7040

== ENCOUNTER 2017-07-06 16:06 | Inpatient (IN) | payer MEDICARE ==
[~2017-07-06 16:06] MED LIST changes: -ALLO100T PO; -ALPR.25 PO; -ATOR10TA15 PO; -BETH25 PO; -CHLOR50 PO; -FURO20TA PO; -GLIM2TAB PO; -MAGN400T PO; -METF750T PO; -PROS5TAB PO; -TAMS0.4C4 PO; -WARF-18 PO; -WARF4TAB51 PO
[2017-07-06] MEDS ORDERED: SODIUM CHLOR 0.9% 1000 ML INJ 1,000 ML IV ONE (16:11)
--- NOTE | 2017-07-06 16:26 | RADRPT ---
EXAM DATE/TIME: 07/06/2017 16:10 [facility] COMPARISON: CT BRAIN W/O CONTRAST, January 27, 2017, 23:07. INDICATIONS : Stroke alert. Expressive aphasia. RADIATION DOSE: 51.52 CTDIvol (mGy) ; Patient motion This report was called by Mariela to Dr. Cole at 1620 MEDICAL HISTORY : Non-responsive. SURGICAL HISTORY : Non-responsive. ENCOUNTER: Initial ACUITY: 1 day PAIN SCALE: 0/10 LOCATION: cranial TECHNIQUE: Multiple contiguous axial images were obtained of the head. Using automated exposure control and adj ustment of the mA and/or kV according to patient size, radiation dose was kept as low as reasonably a chievable to obtain optimal diagnostic quality images. DICOM format image data is available electro nically for review and comparison. FINDINGS: Significant volume loss with underlying encephalomalacia is identified in the right basal ganglia. Th ere is its lateral margin of the lateral ventricle. These changes were seen previously and 2017 and a re stable. There are no characteristic findings of acute infarct or hemorrhage. CONCLUSION: 1. 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 No evidence of acute infarct or hemorrhage 3. No evidence of focal edema. Darren Rocha MD on July 06, 2017 at 16:21 Board Certified Radiologist. This report was verified electronically.
[2017-07-06 16:32] LABS: AUTOMATED NEUTROPHIL # 5.7 TH/MM3 (1.8-7.7); BASOPHIL # 0.1 TH/MM3 (0-0.2); BASOPHIL % 1.2 % (0.0-2.0); EOSINOPHIL # 0.3 TH/MM3 (0-0.4); EOSINOPHIL % 3.6 % (0.0-4.0); HEMATOCRIT 34.8 % (39.0-51.0); HEMOGLOBIN 11.6 GM/DL (13.0-17.0); LYMPH % 17.1 % (9.0-44.0); LYMPHOCYTE # 1.4 TH/MM3 (1.0-4.8); MEAN CELL VOLUME 94.2 FL (80.0-100.0); MEAN CORPUSCULAR HEMOGLOBIN 31.3 PG (27.0-34.0); MEAN CORPUSCULAR HGB CONC 33.2 % (32.0-36.0); MEAN PLATELET VOLUME 7.2 FL (7.0-11.0); MONO % 5.7 % (0.0-8.0); MONOCYTE # 0.5 TH/MM3 (0-0.9); NEUT % 72.4 % (16.0-70.0); PLATELET COUNT 231 TH/MM3 (150-450); RED BLOOD COUNT 3.69 MIL/MM3 (4.50-5.90); RED CELL DISTRIBUTION WIDTH 13.3 % (11.6-17.2)
[2017-07-06] MEDS ORDERED: LABETALOL HCL 100 MG/20 ML VIAL IV PUSH ONE (16:45)
[2017-07-06 16:48] LABS: CHLORIDE 102 MEQ/L (98-107); SODIUM (NA) 135 MEQ/L (136-145)
[2017-07-06 16:51] LABS: BICARBONATE 26.5 MEQ/L (21.0-32.0); BLOOD UREA NITROGEN 28 MG/DL (7-18); CALCIUM 9.3 MG/DL (8.5-10.1); GLUCOSE,RANDOM 195 MG/DL (74-106)
--- NOTE | 2017-07-06 16:51 | PD ---
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 As per EMS, patient's lives at home with his , reports that patient appeared altered in his mental status with symptoms beginning at 3:30 PM this afternoon. EMS reports that patient had expressive aphasia with left-sided deficits the blood sugar of 206, stroke alert was called to the ER. Patient is currently taking Xarelto as he does have history of CVA. Upon arrival to the emergency room, patient was brought directly to CT. After the CT of the head was obtained, patient was unable to provide in HPI. Patient keeps repeating "please help me." Patient does not have expressive aphasia at this time. Patient is alert to person, he is able to tell me his age, other than that he is confused and cannot provide history. PFSH Past Medical History Hx Anticoagulant Therapy: Yes Arthritis: Yes Asthma: Yes (POSSIBLE R/T ALLERGIES) Autoimmune Disease: No Blood Disorders: No Depression: Yes Heart Rhythm Problems: Yes (PREVIOUSLY DURING SPRING 2013) Cancer: Yes (SKIN, SURGICAL REMOVAL) Cardiovascular Problems: Yes High Cholesterol: Yes Chemotherapy: No Chest Pain: No Congestive Heart Failure: Yes COPD: No Cerebrovascular Accident: Yes Diabetes: Yes Diminished Hearing: Yes (bilat hearing aid) Endocrine: Yes Gastrointestinal Disorders: Yes GERD: Yes Glaucoma: No Gout: Yes Genitourinary: Yes (ENLARGED PROSTATE) Headaches: No Hepatitis: No Hiatal Hernia: Yes Hypertension: Yes Immune Disorder: No Implanted Vascular Access Dvce: Yes Kidney Stones: Yes Musculoskeletal: Yes Neurologic: Yes Psychiatric: No Reproductive: No Respiratory: Yes Immunizations Current: Yes Migraines: No Radiation Therapy: No Renal Failure: No Seizures: No Sleep Apnea: No Thyroid Disease: No Ulcer: No Past Surgical History Abdominal Surgery: No AICD: No Appendectomy: Yes Body Medical Devices: LEFT HIP HARDWARE SPRING 2013 Cardiac Surgery: No Ear Surgery: No Endocrine Surgery: No Eye Surgery: Yes (BILATERAL CATARACT) Genitourinary Surgery: Yes (TURP) Gynecologic Surgery: No Joint Replacement: No Neurologic Surgery: No Oral Surgery: No Pacemaker: No Prostatectomy: Yes Thoracic Surgery: No Other Surgery: Yes Social History Alcohol Use: No Tobacco Use: No Substance Use: No Allergies-Medications (Allergen,Severity, Reaction): Coded Allergies: azithromycin (Unverified Allergy, Severe, Rash, 01/27/17) diatrizoate meglumine (Unverified Allergy, Severe, Rash, 01/27/17) gadobenic acid (Unverified Allergy, Severe, Rash, 01/27/17) gadodiamide (Unverified Allergy, Severe, Rash, 01/27/17) gadoteridol (Unverified Allergy, Severe, Rash, 01/27/17) iodine (Unverified Allergy, Severe, Rash, 01/27/17) iodixanol (Unverified Allergy, Severe, Rash, 01/27/17) iohexol (Unverified Allergy, Severe, Rash, 01/27/17) levofloxacin (Unverified Allergy, Severe, Confusion, 01/27/17) lisinopril (Unverified Allergy, Severe, Rash, edema , 01/27/17) potassium iodide (Unverified Allergy, Severe, Rash, 01/27/17) povidone-iodine (Unverified Allergy, Severe, Rash, 01/27/17) sodium iodide (Unverified Allergy, Severe, Rash, 01/27/17) sodium iodide (Unverified Allergy, Severe, Rash, 01/27/17) meloxicam (Unverified Allergy, Unknown, Unknown, 01/27/17) penicillin G (Unverified Adverse Reaction, Severe, Rash, 01/27/17) Reported Meds & Prescriptions Reported Meds & Active Scripts Active Reported Tradjenta (Linagliptin) 5 Mg Tab 5 Mg PO DAILY Xarelto (Rivaroxaban) 15 Mg Tab 15 Mg PO DAILY Ferosul (Ferrous Sulfate) 300 Mg (60 Mg Iron)/6.82 Ml Elixir Lorazepam 0.5 Mg Tab 0.5 Mg PO Q6H PRN Pantoprazole (Pantoprazole Sodium) 40 Mg Tab 40 Mg PO DAILY Metformin ER (Metformin HCl) 750 Mg Emilia 750 Mg PO BID With evening meal Magnesium Oxide 500 Mg Tab 500 Mg PO DIRECTED Levetiracetam 500 Mg Tab 500 Mg PO BID Finasteride 5 Mg Tab 5 Mg DAILY Do not crush. Atorvastatin (Atorvastatin Calcium) 10 Mg Tab 10 Mg PO WE,FR,CLARKE Allopurinol 100 Mg Tab 100 Mg PO DAILY Fosamax (Alendronate Sodium) 70 Mg Tab 70 Mg PO Q7D Review of Systems ROS Limitations: Altered Mental Status, Hearing Impaired, Poor Historian Physical Exam Narrative GENERAL: Patient overall confused SKIN: Focused skin assessment warm/dry. HEAD: Atraumatic. Normocephalic. EYES: Pupils equal and round. No scleral icterus. No injection or drainage. ENT: No nasal bleeding or discharge. Mucous membranes pink and moist. NECK: Trachea midline. No JVD. CARDIOVASCULAR: Regular rate and rhythm. No murmur appreciated. RESPIRATORY: No accessory muscle use. Clear to auscultation. Breath sounds equal bilaterally. GASTROINTESTINAL: Abdomen soft, non-tender, nondistended. Hepatic and splenic margins not palpable. MUSCULOSKELETAL: Patient with contracted left upper extremity. No clubbing. No cyanosis. No edema. Patient is moving his right upper extremity as well as his lower extremities NEUROLOGICAL: Awake and alert. Normal speech. PSYCHIATRIC: Anxious mood and affect Data Data Last Documented VS Vital Signs Date Time Temp Pulse Resp B/P (MAP) Pulse Ox O2 Delivery O2 Flow Rate FiO2 07/06/17 17:43 79 16 191/91 (124) 95 07/06/17 16:[address] Brain W/O Iv Contrast(Rout) (07/06/17 ) Neuro Checks Q2HX12,Q4H (07/06/17 16:11) Nursing Bedside Swallow Assess .ONCE (07/06/17 16:11) Prothrombin Time / Inr (Pt) (07/06/17 16:11) Act Partial Throm Time (Ptt) (07/06/17 16:11) Complete Blood Count With Diff (07/06/17 16:11) Basic Metabolic Panel (Bmp) (07/06/17 16:11) Fibrinogen (07/06/17 16:11) Creatine Kinase (Cpk) (07/06/17 16:11) Troponin I (07/06/17 16:11) Ua Includes Microscopic (07/06/17 16:11) Chest, Single Ap (07/06/17 ) Electrocardiogram (07/06/17 ) Consult Neurology (07/06/17 16:11) Sodium Chlor 0.9% 1000 Ml Inj (Ns 1000 M (07/06/17 16:11) Blood Glucose (07/06/17 16:11) Ecg Monitoring (07/06/17 16:11) Iv Access Insert/Monitor (07/06/17 16:11) NPO (07/06/17 16:11) Oximetry (07/06/17 16:11) (Hub Use Only)Inp Phy Cons/Ref (07/06/17 ) ^ Straight Catheter (07/06/17 16:38) Labetalol Inj (Trandate Inj) (07/06/17 16:45) Aspirin Chew (Aspirin Chew) (07/06/17 17:15) Urine Culture (07/06/17 16:56) Ceftriaxone Inj (Rocephin Inj) (07/06/17 18:00) Admit Order (Ed Use Only) (07/06/17 17:49) Labs Laboratory Tests Test 07/06/17 16:15 07/06/17 16:56 White Blood Count 8.0 TH/MM3 Red Blood Count 3.69 MIL/MM3 Hemoglobin 11.6 GM/DL Hematocrit 34.8 % Mean Corpuscular Volume 94.2 FL Mean Corpuscular Hemoglobin 31.3 PG Mean Corpuscular Hemoglobin Concent 33.2 % Red Cell Distribution Width 13.3 % Platelet Count 231 TH/MM3 Mean Platelet Volume 7.2 FL Neutrophils (%) (Auto) 72.4 % Lymphocytes (%) (Auto) 17.1 % Monocytes (%) (Auto) 5.7 % Eosinophils (%) (Auto) 3.6 % Basophils (%) (Auto) 1.2 % Neutrophils # (Auto) 5.7 TH/MM3 Lymphocytes # (Auto) 1.4 TH/MM3 Monocytes # (Auto) 0.5 TH/MM3 Eosinophils # (Auto) 0.3 TH/MM3 Basophils # (Auto) 0.1 TH/MM3 CBC Comment DIFF FINAL Differential Comment Prothrombin Time 11.4 SEC Prothromb Time International Ratio 1.1 RATIO Activated Partial Thromboplast Time 31.3 SEC Fibrinogen 429 mg/dL Blood Urea Nitrogen 28 MG/DL Creatinine 1.50 MG/DL Random Glucose 195 MG/DL Calcium Level 9.3 MG/DL Sodium Level 135 MEQ/L Potassium Level 5.5 MEQ/L Chloride Level 102 MEQ/L Carbon Dioxide Level 26.5 MEQ/L Anion Gap 7 MEQ/L Estimat Glomerular Filtration Rate 45 ML/MIN Total Creatine Kinase 41 U/L Troponin I LESS THAN 0.02 NG/ML Urine Collection Type CATH Urine Color YELLOW Urine Turbidity CLEAR Urine pH 7.5 Urine Specific [place] 1.010 Urine Protein TRACE mg/dL Urine Glucose (UA) NEG mg/dL Urine Ketones NEG mg/dL Urine Occult Blood NEG Urine Nitrite POS Urine Bilirubin NEG Urine Urobilinogen 0.2 MG/DL Urine Leukocyte Esterase SMALL Urine WBC 50-99 /hpf Urine WBC Clumps MOD Urine Squamous Epithelial Cells CCI /hpf Urine Amorphous Sediment MOD Urine Bacteria FEW /hpf Microscopic Urinalysis Comment CATH-CULTURE IND Urine Collection Time 1656 MDM Medical Screen Exam Complete: Yes Emergency Medical Condition: Yes Medical Record Reviewed: Yes EKG Prior to Arrival: No Differential Diagnosis CVA, TIA, intracranial hemorrhage, altered mental status could be secondary to UTI, infection, electrolyte abnormality Narrative Course 86-year-old male who is brought to the emergency room by EMS for a stroke alert called in the field. Patient had a blood sugar of 206 in the field, EMS reports that patient had expressive aphasia with left-sided deficits. Upon arrival to the emergency room, patient was brought directly to CT for imaging. He does have history of CVA in the past and is currently taking Xarelto -at baseline, he has contractions to the left upper extremity due to previous CVAs in the past. CT imaging was negative for any acute intracranial hemorrhage. Upon evaluation of patient, it was difficult for him to follow commands as he is hearing impaired. Patient is able to repeat my sentences, he does not appear to have expressive aphasia. Patient presents more of an altered mental status versus a CVA Case was reviewed with Dr. Hodge with neurology at 4:22 PM who initially recommended a CTA of his head and neck for possible interventions based on EMS report. After evaluating patient, I did call Dr. Hodge back and we decided to cancel the CTAs as patient most likely has an altered mental status versus a stroke. In addition, patient does have an allergy to iodine -patient is unsure what his allergy is iodine. During the course of the patients emergency department visit, the patients history, examination, and differential diagnosis were reviewed with the patient. The patient was placed on a court monitor with oximetry and frequent blood pressure monitoring. The patient had an IV access obtained and blood work sent for analysis. The patient was initially provided IV labetalol to address his elevated blood pressure - blood pressure was 228/98 Case reviewed with patient's was at bedside, reports that patient did have an episode of difficulty with word finding, reports that this usually comes and goes as this happens quite often with him. Reports that patient at this time appears more agitated but speech has improved. Patient with most likely TIA vs AMS. Discussed need for observation to the hospital. case reviewed again with Dr. Hodge, request 2d echo as well carotid us during observation to hospital Critical Care Narrative Aggregate critical care time was 45 minutes. Time to perform other separately billable procedures was not included in the critical care time. My time did not include minutes spent treating any other patients simultaneously or on activities that did not directly contribute to the patient's treatment. The services I provided to this patient were to treat and/or prevent clinically significant deterioration that could result in: , decompensation, deterioration I provided critical care services requiring my management, as noted below: Chart data review, documentation time, medication orders and management, vital sign assessments/reviewing monitor data, ordering and reviewing lab tests, ordering and interpreting/reviewing x-rays and diagnostic studies, care of the patient and discussion of the patient with the admitting physicians. Stroke Alert NIHSS NIH Stroke Scale Result: 2 (patient unable to follow commands, he has baseline left upper extremity deficits) NIHSS Time Completed: 16:30 Thrombolytic Contraindications Contraindications Comment: Patient is currently on Xarelto Diagnosis Diagnosis: Primary Impression: Altered mental status, unspecified Qualified Codes: R41.82 - Altered mental status, unspecified Additional Impressions: TIA (transient ischemic attack) Qualified Codes: G45.9 - Transient cerebral ischemic attack, unspecified Accelerated hypertension UTI (urinary tract infection) Admitting Physician Requests: Sonam Piña DO Jul 06, 2017 16:51
[2017-07-06 16:52] VITALS: BP 219/96; PULSE 100; RESP 18; TEMP 98.8; O2SAT 95
[2017-07-06 16:53] LABS: INTERNATIONAL NORMALIZED RATIO 1.1 RATIO; PROTHROMBIN TIME - PATIENT 11.4 SEC (9.8-11.6)
[2017-07-06 16:55] LABS: GLOMERULAR FILTRATION RATE 45 ML/MIN (>89)
--- NOTE | 2017-07-06 16:58 | RADRPT ---
EXAM DATE/TIME: 07/06/2017 16:45 [facility] COMPARISON: CHEST SINGLE AP, January 27, 2017, 22:38. INDICATIONS : Stroke alert. MEDICAL HISTORY : Unobtainable. SURGICAL HISTORY : Unobtainable. ENCOUNTER: Initial ACUITY: 1 day PAIN SCORE: Non-responsive. LOCATION: Bilateral chest FINDINGS: Interstitial prominence is seen throughout both lungs which appears chronic. There is no evidence of acute airspace disease. Heart and mediastinal structures are unremarkable. CONCLUSION: No acute disease. Darren Rocha MD on July 06, 2017 at 16:56 Board Certified Radiologist. This report was verified electronically.
[2017-07-06 16:59] LABS: TROPONIN I LESS THAN 0.02 NG/ML (0.02-0.05)
[2017-07-06 17:07] LABS: BILIRUBIN, URINE NEG (NEG); BLOOD, URINE NEG (NEG); GLUCOSE,URINE NEG (NEG); KETONE, URINE NEG (NEG); NITRITE,URINE POS (NEG); PH, URINE 7.5 (5.0-8.5); URINE COLOR YELLOW (YELLW/STRAW); URINE LEUKOCYTE ESTERASE SMALL (NEG)
[2017-07-06] MEDS ORDERED: ASPIRIN 81 MG CHEW TAB CHEW ONE (17:15)
[2017-07-06 17:21] VITALS: O2SAT 95
[2017-07-06] MEDS ORDERED: CART120C PO (17:21)
[2017-07-06] MEDS ORDERED: LORA0.5T PO (17:21)
[2017-07-06] MEDS ORDERED: PANT40TA3 PO (17:21)
[2017-07-06] MEDS ORDERED: FOSA70TA PO (17:21)
[2017-07-06] MEDS ORDERED: METF750T PO (17:21)
[2017-07-06] MEDS ORDERED: [UNRECOGNIZED DRUG - CODE] (17:21)
[2017-07-06] MEDS ORDERED: TRAD5TAB PO (17:21)
[2017-07-06] MEDS ORDERED: MAGN500T2 PO (17:21)
[2017-07-06] MEDS ORDERED: LEVE500T8 PO (17:21)
[2017-07-06] MEDS ORDERED: ATOR10TA15 PO (17:21)
[2017-07-06] MEDS ORDERED: FINA5TAB2 (17:21)
[2017-07-06] MEDS ORDERED: XARE15TA PO (17:21)
[2017-07-06] MEDS ORDERED: TELM40 PO (17:21)
[2017-07-06] MEDS ORDERED: ALLO100T PO (17:21)
[2017-07-06] MEDS ORDERED: TELM5TAB PO (17:21)
[2017-07-06 17:24] LABS: AMORPHOUS SEDIMENT, URINE MOD; BACTERIA, URINE FEW /hpf; SQUAMOUS EPITHELIAL CELL URINE CCI /hpf (0-5); WHITE BLOOD CELL CLUMPS MOD
[2017-07-06 17:43] VITALS: BP 191/91; PULSE 79; RESP 16; O2SAT 95
[2017-07-06] MEDS ORDERED: cefTRIAXone INJ 1,000 MG in SODIUM CHLORIDE 0.9% INJ 100 ML IV ONE (18:00)
[2017-07-06 18:18] VITALS: BP 175/102; PULSE 87; O2SAT 96
[2017-07-06 20:00] VITALS: BP 140/78; PULSE 100; RESP 16; TEMP 97.7; O2SAT 96
[2017-07-06 22:00] VITALS: PULSE 88
[2017-07-06] MEDS ORDERED: ONDANSETRON HCL 4 MG/2 ML VIAL IVP PRN (22:00)
[2017-07-06] MEDS ORDERED: NALOXONE HCL 0.4 MG/ML AMP IV PUSH PRN (22:00)
[2017-07-06] MEDS ORDERED: ACETAMINOPHEN 325 MG TAB PO PRN (22:00)
[2017-07-06] MEDS ORDERED: ALENDRONATE SODIUM 70 MG TAB PO SCH (22:00)
[2017-07-06] MEDS: SODIUM CHLOR 0.9% 1000 ML INJ 1,000 ML IV SCH (22:22)
[2017-07-07] VITALS: BP 154/73; PULSE 75; RESP 18; TEMP 97.6; O2SAT 94
--- NOTE | 2017-07-07 00:23 | MH ---
cc: Elda Lin MD DATE OF ADMISSION: 07/06/2017 ADMITTING DIAGNOSIS: Inability to speak. HISTORY OF PRESENT ILLNESS: The patient was brought to the emergency room as a stroke alert by the paramedics after they arrived to the house. According to the , Rosemarie, who gives most of the history, and Manas, the son who is in the room, the patient was in his usual state of health today when, at lunchtime, she turned to him to ask him what he wanted for lunch, and at that time, he looked at her with a blank stare and was having difficulty forming words to respond to her. She became concerned. He has had episodes of this in the past. She tried to get him to speak. She actually gave him a glass of water. She tells me he was able to follow instructions and actually hold the glass in his own hand; however, he still was having trouble speaking, at which time she called 911. He does have a history of cerebrovascular accident with left hemiparesis. When the paramedics arrived initially, when they saw that he could not move his left upper arm, they called it in as a stroke alert. According to the , the patient has been seeing Dr. Sherman and actually saw him approximately 2 weeks ago for increased agitation at night. She says that at night, he just becomes very restless in bed. He is not able to sleep. He tosses and turns. Nothing makes him comfortable. Nothing really specific, he will just continue moaning "help me, help me" throughout the day; however, he is fine. It is only once until he gets into the bed. She does not recall any change in his medications or change in anything that may have precipitated this. His appetite: She is able to get him to eat and she feels that he drinks at least four 8-ounce glasses of water a day. They did go in to see Dr. Sherman and according to her, they did a mini mental on him. He also did a urinalysis, which showed a UTI. The urine was repeated on Friday at [facility] and resulted yesterday, and it really did not show a urinary tract infection. No real fevers, no chills, no real complaints. He will have some sweats at night, according to her. He has been urinating more. He does get up frequently at night to use the bathroom and if not careful, will be incontinent. Aside from that, no other significant changes, and he does see Dr. Sherman. These moments of inability to speak have occurred in the past, actually with no clear etiology. He is currently on Keppra as an antiseizure medication. According to the , he cannot seem to get the words out. The son seemed to feel that he did, and that the words were garbled, that they did not make sense. Be that as it may, when the ER physician saw him here, by the time they arrived (this happened approximately 3:00 In the afternoon), the patient was actually talking and did not have expressive aphasia, but kept on repeating "please help me, please help me," which is what his says he will do in the evenings. PAST MEDICAL HISTORY: Significant for atrial fibrillation. He has had issues with respiratory insufficiency and asthma. He has had DVTs, hypertension, diabetes. As stated, he had the prior cerebrovascular accident with left-sided weakness. He has required esophageal dilatation. He has hyperlipidemia, reflux, gout. He will sometimes get some lower extremity edema. PAST SURGICAL HISTORY: Includes cataract surgery. He has had a TURP. He has had left hip and femur surgery. He has had excisions of skin cancer including basal cell carcinoma. ALLERGIES: INCLUDE AZITHROMYCIN, CONTRAST, ____, IODINE, SOUNDS LIKE ALL CONTRAST MATERIALS, LEVOFLOXACIN, LISINOPRIL (LISINOPRIL IS ACTUALLY COUGH), MELOXICAM, AND PENICILLIN. HABITS: He does not smoke or consume alcohol. SOCIAL HISTORY: He is . He lives with his . He is currently retired. His son is very attentive and is in the room with him. REVIEW OF SYSTEMS: See HPI. PHYSICAL EXAMINATION: VITAL SIGNS: Temperature is 97.7, pulse is 100, respirations 16, blood pressure is 140/78, pulse oximetry is 96% on room air. GENERAL: He is actually lying on his side, sleeping when I walk into the room. After obtaining the history from the , however, he is arousable. He is hard of hearing, so I have to lean close to him, but he is alert and recognizes me. He does not appear to be in any acute distress at this time. His speech is clear. He has moist oral mucosa. LUNGS: Clear. HEART: Actually is regular, a little bit fast. ABDOMEN: Benign. EXTREMITIES: Show no edema. NEUROLOGICAL: He does have left-sided hemiparesis. LABORATORY DATA: Showed a white count of 8, hemoglobin of 11.6, hematocrit of 34.8, platelet count of 231. Sodium is 135, potassium is 5.5, BUN is 28, creatinine is 1.5. A random glucose is 195. His PT is 11.4 with an INR of 1.1, PTT is 31.3. UA was positive for nitrites, small leukocyte esterase. Culture is pending. IMAGING: CT showed stable right basal ganglionic infarcts, no acute infarct or hemorrhage. No evidence of focal edema. Chest x-ray showed no acute disease. ASSESSMENT AND PLAN: An 86-year-old gentleman presenting to the Emergency Room with what was reported to be an episode of expressive aphasia. The also described a blank look on his face, staring. He has had prior episodes of this with an unclear etiology. At this point, this appears to have been resolved. Will admit him for further evaluation. Will have his neurologist see him. Certainly if he did have some transient confusion, a urinary tract infection would be responsible for this. The urine done in the emergency room is suggestive of a UTI. He has been started on Rocephin. We will await the cultures. His restlessness and agitation at night is new, and apparently he was placed on gabapentin as needed by his neurologist. At this point, the family says it has not really been helping. We will hold that and just continue to monitor him. They have been giving him lorazepam; I am going to try to hold off on that. In terms of his diabetes, I will hold on the metformin, continue him on the Tradjenta for now, but give it to him in the morning instead of in the evening at bedtime as the family has been giving it to him, and follow him on sliding scale. For his atrial fibrillation, he has been on the heart monitor. He is on diltiazem. Will continue. He is on Xarelto also for this, as well as for his deep vein thrombosis. Will continue his medications for his cholesterol and his reflux. Blood pressure has been an issue with him in the past. I will see how his blood pressure does currently in the hospital, but for now we will just continue him on his regular blood pressure regimen from home. Further recommendations as the case develops. Elda Lin MD CAS/DANUTA , 10:18 PM , 12:22 AM
[2017-07-07 04:00] VITALS: BP 181/80; PULSE 80; RESP 16; TEMP 97.6; O2SAT 94
[2017-07-07 06:38] LABS: AUTOMATED NEUTROPHIL # 5.6 TH/MM3 (1.8-7.7); BASOPHIL # 0.1 TH/MM3 (0-0.2); BASOPHIL % 0.7 % (0.0-2.0); EOSINOPHIL # 0.3 TH/MM3 (0-0.4); EOSINOPHIL % 4.2 % (0.0-4.0); HEMATOCRIT 31.6 % (39.0-51.0); HEMOGLOBIN 10.1 GM/DL (13.0-17.0); LYMPH % 14.6 % (9.0-44.0); LYMPHOCYTE # 1.1 TH/MM3 (1.0-4.8); MEAN CELL VOLUME 93.2 FL (80.0-100.0); MEAN CORPUSCULAR HEMOGLOBIN 29.9 PG (27.0-34.0); MEAN PLATELET VOLUME 7.1 FL (7.0-11.0); MONO % 6.4 % (0.0-8.0); MONOCYTE # 0.5 TH/MM3 (0-0.9); NEUT % 74.1 % (16.0-70.0); PLATELET COUNT 228 TH/MM3 (150-450); RED BLOOD COUNT 3.39 MIL/MM3 (4.50-5.90); RED CELL DISTRIBUTION WIDTH 13.1 % (11.6-17.2); WHITE BLOOD COUNT 7.6 TH/MM3 (4.0-11.0)
[2017-07-07 06:49] LABS: CHLORIDE 107 MEQ/L (98-107); SODIUM (NA) 141 MEQ/L (136-145)
[2017-07-07 07:37] LABS: ALKALINE PHOSPHATASE 62 U/L (45-117); ALT (GPT) 11 U/L (12-78); AST (GOT) 6 U/L (15-37); BICARBONATE 27.3 MEQ/L (21.0-32.0); BLOOD UREA NITROGEN 22 MG/DL (7-18); CALCIUM 8.5 MG/DL (8.5-10.1); GLOMERULAR FILTRATION RATE 53 ML/MIN (>89); GLUCOSE,RANDOM 144 MG/DL (74-106); TOTAL BILIRUBIN ADULT 0.5 MG/DL (0.2-1.0); TOTAL PROTEIN 6.5 GM/DL (6.4-8.2)
[2017-07-07] MEDS: INSULIN ASPART SUPPLEMENTAL SCALE SQ SCH ×4 (07:47→21:00)
[2017-07-07 08:00] VITALS: BP 209/90; PULSE 92; RESP 18; TEMP 97.3; O2SAT 96
[2017-07-07] MEDS: LOSARTAN 50 MG TAB PO SCH ×2 (08:30→21:02)
[2017-07-07] MEDS: DILTIAZEM-CD 180 MG CAP ER PO SCH ×2 (08:30→21:02)
[2017-07-07] MEDS: PANTOPRAZOLE SOD 40 MG DELAYED RELEASE TAB PO SCH (08:30)
[2017-07-07] MEDS: RIVAROXABAN 15 MG TAB PO SCH (08:30)
[2017-07-07] MEDS ORDERED: levETIRAcetam 500 MG TAB PO SCH (09:00)
[2017-07-07] MEDS ORDERED: LINAGLIPTIN 5 MG PO SCH (09:00)
--- NOTE | 2017-07-07 09:00 | EKG ---
Date Performed: 07/06/2017 Time Performed: 16:39:05 PTAGE: 86 years EKG: SINUS TACHYCARDIA WITH FIRST DEGREE AV BLOCK INDETERMINATE AXIS RBBB ABNORMAL ECG PREVIOUS TRACING : 01/27/2017 22.09 Compared to previous tracing, normal axis no longer presem t DOCTOR: Kierra Sparks Interpretating Date/Time 07/07/2017 08:59:05
[2017-07-07] MEDS: cloNIDine HCL 0.1 MG TAB PO PRN (10:42)
[2017-07-07] MEDS: SODIUM CHLOR 0.9% 1000 ML INJ 1,000 ML IV SCH (10:48)
[2017-07-07 12:00] VITALS: BP 156/72; PULSE 71; RESP 18; TEMP 99.5; O2SAT 96
--- NOTE | 2017-07-07 12:14 | HHI.PR ---
Subjective Remarks sleeping, arousable with touch, per staff was more awake this am Objective Vitals Vital Signs Date Time Temp Pulse Resp B/P (MAP) Pulse Ox O2 Delivery O2 Flow Rate FiO2 07/07/17 08:00 97.3 92 18 209/90 (129) 96 07/07/17 04:00 97.6 80 16 181/80 (113) 94 07/07/17 00:00 97.6 75 18 154/73 (100) 94 07/06/17 22:00 88 07/06/17 20:00 97.7 100 16 140/78 (98) 96 07/06/17 18:58 07/06/17 18:18 87 175/102 (126) 96 07/06/17 17:43 79 16 191/91 (124) 95 07/06/17 17:21 95 07/06/17 16:52 98.8 100 18 219/96 (137) 95 Result Diagram: 07/07/17 0623 07/07/17 0623 Imaging Last Impressions Head CT 07/06/17 0000 Signed Impressions: Service Date/Time: Thursday, July 06, 2017 16:10 - CONCLUSION: 1. 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 No evidence of acute infarct or hemorrhage 3. No evidence of focal edema. Darren Rocha MD Chest X-Ray 07/06/17 0000 Signed Impressions: Service Date/Time: Thursday, July 06, 2017 16:45 - CONCLUSION: No acute disease. Darren Rocha MD Objective Remarks l;alex on left side sleeping , arousable to touch but falls back asleep cta anteriorly heart irregular left arm contractured no edema A/P Problem List: (1) Benign essential HTN ICD Codes: I10 - Benign essential HTN Status: Chronic Plan: blood pressure elevated again this am covered with clonidine, monitor (2) CVA (cerebral infarction) ICD Codes: I63.9 - CVA (cerebral infarction) Status: Chronic Plan: with left sided hemiparesis (3) A-fib ICD Codes: I48.91 - A-fib Status: Chronic Plan: on xarelto for afib/.dvt (4) DM type 2 (diabetes mellitus, type 2) ICD Codes: E11.9 - DM type 2 (diabetes mellitus, type 2) Status: Chronic Plan: on tradjenta ssi, if does not eat will stop tradjenta and cont ssi (5) UTI (urinary tract infection) ICD Codes: N39.0 - Urinary tract infection, site not specified Status: Acute Plan: on rocephin await culture (6) Altered mental status, unspecified ICD Codes: R41.82 - Altered mental status, unspecified Status: Acute Plan: may be multifactorial uti, hypertension, seen by neurology, will stop keppra mri ordered Problem Qualifiers (1) Altered mental status, unspecified: Qualified Codes: R41.82 - Altered mental status, unspecified Elda Lin MD Jul 07, 2017 12:14
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
[2017-07-07] MEDS: SODIUM CHLOR 0.45% 1000 ML INJ 1,000 ML IV SCH (12:59)
[2017-07-07 16:00] VITALS: BP 150/78; PULSE 80; RESP 18; TEMP 98.9; O2SAT 96
[2017-07-07] MEDS: cefTRIAXone INJ 1,000 MG in SODIUM CHLORIDE 0.9% INJ 100 ML IV SCH (17:09)
[2017-07-07 21:00] VITALS: PULSE 65
[2017-07-07] MEDS: levETIRAcetam 250 MG TAB PO SCH (21:02)
[2017-07-08 00:34] VITALS: BP 186/90; PULSE 69; RESP 20; TEMP 98.8; O2SAT 96
[2017-07-08] MEDS: SODIUM CHLOR 0.45% 1000 ML INJ 1,000 ML IV SCH ×2 (00:37→11:50)
[2017-07-08] MEDS: cloNIDine HCL 0.1 MG TAB PO PRN ×2 (00:39→05:32)
[2017-07-08 05:26] VITALS: BP 187/76; PULSE 74; RESP 18; TEMP 97.2; O2SAT 97
[2017-07-08 08:00] VITALS: BP 139/67; PULSE 62; RESP 18; TEMP 98.3; O2SAT 92
[2017-07-08] MEDS: INSULIN ASPART SUPPLEMENTAL SCALE SQ SCH ×4 (08:00→22:20)
--- NOTE | 2017-07-08 08:01 | HHI.PR ---
Objective Vital Signs Date Time Temp Pulse Resp B/P (MAP) Pulse Ox O2 Delivery O2 Flow Rate FiO2 07/08/17 05:26 97.2 74 18 187/76 (113) 97 07/08/17 00:34 98.8 69 20 186/90 (122) 96 07/07/17 21:00 65 07/07/17 16:00 98.9 80 18 150/78 (102) 96 07/07/17 12:00 99.5 71 18 156/72 (100) 96 I/O 07/07/17 07/07/17 07/07/17 07/08/17 07/08/17 07/08/17 07:00 15:00 23:00 07:00 15:00 23:00 Intake Total 240 ml Output Total 400 ml Balance 240 ml -400 ml Intake Oral 240 ml Output Urine Total 400 ml # Voids 6 6 Result Diagram: 07/07/17 0623 07/07/17 0623 Assessment and Plan Assessment and Plan imp acc to nurse more alert his am retry mri eeg pend fu ldl uti Acosta Sherman MD Jul 08, 2017 08:01
[2017-07-08] MEDS: PANTOPRAZOLE SOD 40 MG DELAYED RELEASE TAB PO SCH (09:00)
[2017-07-08] MEDS: ATORVASTATIN 10 MG TAB PO SCH (09:00)
[2017-07-08] MEDS: DILTIAZEM-CD 180 MG CAP ER PO SCH ×2 (09:00→22:19)
[2017-07-08] MEDS: LOSARTAN 50 MG TAB PO SCH ×2 (09:00→22:19)
[2017-07-08] MEDS: levETIRAcetam 250 MG TAB PO SCH ×2 (09:00→22:19)
[2017-07-08] MEDS: RIVAROXABAN 15 MG TAB PO SCH (09:00)
[2017-07-08 12:00] VITALS: BP 153/72; PULSE 83; RESP 18; TEMP 96.2; O2SAT 97
--- NOTE | 2017-07-08 13:59 | HHI.PR ---
Subjective Remarks no complaints, tells me he keeps Rosemarie awake but Jules sleeps, not hungry, tired Objective Vitals Vital Signs Date Time Temp Pulse Resp B/P (MAP) Pulse Ox O2 Delivery O2 Flow Rate FiO2 07/08/17 12:00 96.2 83 18 153/72 (99) 97 07/08/17 08:00 98.3 62 18 139/67 (91) 92 07/08/17 05:26 97.2 74 18 187/76 (113) 97 07/08/17 00:34 98.8 69 20 186/90 (122) 96 07/07/17 21:00 65 07/07/17 16:00 98.9 80 18 150/78 (102) 96 07/08/17 07/08/17 07/09/17 15:00 23:00 07:00 Intake Total 140 ml Balance 140 ml Intake Oral 140 ml Result Diagram: 07/07/17 0623 07/07/17 0623 Imaging Last Impressions Head CT 07/06/17 0000 Signed Impressions: Service Date/Time: Thursday, July 06, 2017 16:10 - CONCLUSION: 1. 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 No evidence of acute infarct or hemorrhage 3. No evidence of focal edema. Darren Rocha MD Chest X-Ray 07/06/17 0000 Signed Impressions: Service Date/Time: Thursday, July 06, 2017 16:45 - CONCLUSION: No acute disease. Darren Rocha MD Objective Remarks siting by window sleeping but arousable when I speak into his ear]\ thinks its june looks sleepy, heyes half closed but answers all my questions lungs are clear heart irregular abdomen nontender legs elevated in recliner no edema A/P Problem List: (1) Benign essential HTN ICD Codes: I10 - Benign essential HTN Status: Chronic Plan: blood pressure elevated again this am covered with clonidine, monitor he was on micardis outpatient, losartan in house was in terazosin inthe past will add (2) CVA (cerebral infarction) ICD Codes: I63.9 - CVA (cerebral infarction) Status: Chronic Plan: with left sided hemiparesis (3) A-fib ICD Codes: I48.91 - A-fib Status: Chronic Plan: on xarelto for afib/.dvt (4) DM type 2 (diabetes mellitus, type 2) ICD Codes: E11.9 - DM type 2 (diabetes mellitus, type 2) Status: Chronic Plan: on tradjenta ssi, if does not eat will stop tradjenta and cont ssi on ssi, eatin gvery little today will stop tradjenta (5) UTI (urinary tract infection) ICD Codes: N39.0 - Urinary tract infection, site not specified Status: Acute Plan: on rocephin await culture (6) Altered mental status, unspecified ICD Codes: R41.82 - Altered mental status, unspecified Status: Acute Plan: may be multifactorial uti, hypertension, seen by neurology, will stop unable to complete mri yesterday sleep log being kept Problem Qualifiers (1) Altered mental status, unspecified: Qualified Codes: R41.82 - Altered mental status, unspecified Elda Lin MD Jul 08, 2017 13:59
[2017-07-08 16:00] VITALS: BP 134/61; PULSE 62; RESP 16; TEMP 96; O2SAT 97
[2017-07-08] MEDS: cefTRIAXone INJ 1,000 MG in SODIUM CHLORIDE 0.9% INJ 100 ML IV SCH (18:00)
[2017-07-08 20:00] VITALS: BP 147/66; PULSE 68; PULSE 77; RESP 18; TEMP 97.2; O2SAT 94
[2017-07-09] VITALS (7 sets, daily range): BP systolic 140–182; BP diastolic 50–80; PULSE 68–91; RESP 18–20; TEMP 96.8–98.8; O2SAT 94–98
[2017-07-09] MEDS: SODIUM CHLOR 0.45% 1000 ML INJ 1,000 ML IV SCH ×2 (01:00→12:23)
--- NOTE | 2017-07-09 08:07 | HHI.PR ---
Subjective Remarks screaming in mri so not done slep 3am to 6 am Objective Vital Signs Date Time Temp Pulse Resp B/P (MAP) Pulse Ox O2 Delivery O2 Flow Rate FiO2 07/09/17 04:00 96.8 91 20 182/79 (113) 97 07/09/17 00:00 97.1 70 18 167/70 (102) 98 07/08/17 20:00 68 07/08/17 20:00 97.2 77 18 147/66 (93) 94 07/08/17 16:00 96.0 62 16 134/61 (85) 97 07/08/17 12:00 96.2 83 18 153/72 (99) 97 I/O 07/08/17 07/08/17 07/08/17 07/09/17 07/09/17 07/09/17 07:00 15:00 23:00 07:00 15:00 23:00 Intake Total 140 ml 240 ml 1420 ml Output Total 400 ml 250 ml Balance -400 ml 140 ml 240 ml 1170 ml Intake Oral 140 ml 240 ml 420 ml IV Total 1000 ml Output Urine Total 400 ml 250 ml # Voids 3 # Bowel Movements 1 Result Diagram: 07/07/17 0623 07/07/17 0623 Assessment and Plan Assessment and Plan imp acc to nurse more alert his am retry mri eeg pend if neg might dc keppra and see if more awake off it fu ldl uti oob PT try and keep awake during day so will sleep at [facility] Acosta Sherman MD Jul 09, 2017 08:07
--- NOTE | 2017-07-09 09:06 | MG ---
cc: Acosta Sherman MD [id number] DESCRIPTION: This is an 86-year-old man, difficulty talking. Marion Patterson. Old right-sided deep stroke. Diffuse 6 Hz slowing is noted. No major hemisphere asymmetry is seen. Hyperventilation was not performed. Photic stimulation was not performed. IMPRESSION: Diffuse slowing consistent with a mild to moderate diffuse encephalopathy, but no focal abnormality was noted. No seizure activity was seen. MD PAIGE Araya/ÁNGEL , 11:17 PM , 11:34 PM
[2017-07-09] MEDS: INSULIN ASPART SUPPLEMENTAL SCALE SQ SCH ×4 (09:15→21:25)
[2017-07-09] MEDS: levETIRAcetam 250 MG TAB PO SCH (09:59)
[2017-07-09] MEDS: PANTOPRAZOLE SOD 40 MG DELAYED RELEASE TAB PO SCH (09:59)
[2017-07-09] MEDS: RIVAROXABAN 15 MG TAB PO SCH (09:59)
[2017-07-09] MEDS: DILTIAZEM-CD 180 MG CAP ER PO SCH ×2 (09:59→21:24)
[2017-07-09] MEDS: LOSARTAN 50 MG TAB PO SCH ×2 (09:59→21:24)
[2017-07-09 10:16] LABS: CHLORIDE 102 MEQ/L (98-107); SODIUM (NA) 135 MEQ/L (136-145)
[2017-07-09 10:32] LABS: ALBUMIN 2.6 GM/DL (3.4-5.0); ALKALINE PHOSPHATASE 56 U/L (45-117); ALT (GPT) 12 U/L (12-78); AST (GOT) 10 U/L (15-37); BICARBONATE 23.3 MEQ/L (21.0-32.0); BLOOD UREA NITROGEN 33 MG/DL (7-18); CALCIUM 7.6 MG/DL (8.5-10.1); GLOMERULAR FILTRATION RATE 45 ML/MIN (>89); GLUCOSE,RANDOM 173 MG/DL (74-106); TOTAL BILIRUBIN ADULT 0.4 MG/DL (0.2-1.0); TOTAL PROTEIN 5.7 GM/DL (6.4-8.2)
--- NOTE | 2017-07-09 11:12 | HHI.PR ---
Subjective Remarks no complaints , ate some breakfast Objective Vitals Vital Signs Date Time Temp Pulse Resp B/P (MAP) Pulse Ox O2 Delivery O2 Flow Rate FiO2 07/09/17 08:00 98.8 77 18 152/72 (98) 95 07/09/17 04:00 96.8 91 20 182/79 (113) 97 07/09/17 00:00 97.1 70 18 167/70 (102) 98 07/08/17 20:00 68 07/08/17 20:00 97.2 77 18 147/66 (93) 94 07/08/17 16:00 96.0 62 16 134/61 (85) 97 07/08/17 12:00 96.2 83 18 153/72 (99) 97 Result Diagram: 07/07/17 0623 07/09/17 0840 Imaging Last Impressions Head CT 07/06/17 0000 Signed Impressions: Service Date/Time: Thursday, July 06, 2017 16:10 - CONCLUSION: 1. 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 No evidence of acute infarct or hemorrhage 3. No evidence of focal edema. Darren Rocha MD Chest X-Ray 07/06/17 0000 Signed Impressions: Service Date/Time: Thursday, July 06, 2017 16:45 - CONCLUSION: No acute disease. Darren Rocha MD Last Impressions Head CT 07/06/17 0000 Signed Impressions: Service Date/Time: Thursday, July 06, 2017 16:10 - CONCLUSION: 1. 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 No evidence of acute infarct or hemorrhage 3. No evidence of focal edema. Darren Rocha MD Chest X-Ray 07/06/17 0000 Signed Impressions: Service Date/Time: Thursday, July 06, 2017 16:45 - CONCLUSION: No acute disease. Darren Rocha MD Objective Remarks lying in bed, sleeping but arousable when i speak into his ear lungs clear heart regular abdomen globose , good bowel sounds ext no edema A/P Problem List: (1) Benign essential HTN ICD Codes: I10 - Benign essential HTN Status: Chronic Plan: blood pressure elevated again this am covered with clonidine, monitor he was on micardis outpatient, losartan in house was on terazosin added a clonidine stopped (2) CVA (cerebral infarction) ICD Codes: I63.9 - CVA (cerebral infarction) Status: Chronic Plan: with left sided hemiparesis (3) A-fib ICD Codes: I48.91 - A-fib Status: Chronic Plan: on xarelto for afib/.dvt (4) DM type 2 (diabetes mellitus, type 2) ICD Codes: E11.9 - DM type 2 (diabetes mellitus, type 2) Status: Chronic Plan: on tradjenta ssi, if does not eat will stop tradjenta and cont ssi on ssi, eatin gvery little today will stop tradjenta (5) UTI (urinary tract infection) ICD Codes: N39.0 - Urinary tract infection, site not specified Status: Acute Plan: on rocephin culture not really growing anything (6) Altered mental status, unspecified ICD Codes: R41.82 - Altered mental status, unspecified Status: Acute Plan: may be multifactorial uti, hypertension, seen by neurology, will try mri again today t/c stopping keppra pending eeg Problem Qualifiers (1) Altered mental status, unspecified: Qualified Codes: R41.82 - Altered mental status, unspecified Elda Lin MD Jul 09, 2017 11:12
--- NOTE | 2017-07-09 14:34 | RADRPT ---
EXAM DATE/TIME: 07/09/2017 13:30 [facility] COMPARISON: MRI BRAIN W/O CONTRAST, January 28, 2017, 15:40. INDICATIONS : CVA. MEDICAL HISTORY : Cerebrovascular disease. SURGICAL HISTORY : Left hip and leg rodding. ENCOUNTER: Subsequent ACUITY: 4-6 days PAIN SCORE: 0/10 LOCATION: head. TECHNIQUE: Multiplanar, multisequence MRI of the brain was performed without contrast. FINDINGS: This is a limited quality exam due to significant patient motion. Fast imaging sequences were utiliz ed. The diffusion images are nondiagnostic. Asymmetric enlargement of the right lateral ventricle i s similar to prior. No evidence of mass effect. No extra-axial fluid collections seen. Diffuse T2 prolongation in the supratentorial white matter is similar to prior. Posterior fossa structures are grossly intact. CONCLUSION: No significant gross interval change when compared to 01/28/17. Ventriculomegaly, diffuse T2 prolong ation in the supratentorial white matter stable. Diffusion images are nondiagnostic. Kevin Christensen MD on July 09, 2017 at 14:29 Board Certified Radiologist. This report was verified electronically.
[2017-07-09 14:57] LABS: CHOLESTEROL 101 MG/DL (120-200); TRIGLYCERIDES 128 MG/DL (42-150)
[2017-07-09 14:59] LABS: CHOLESTEROL/ HDL RATIO 2.63 RATIO; HDL CHOLESTEROL 38.3 MG/DL (40.0-60.0); LDL CHOLESTEROL 37 MG/DL (0-99)
[2017-07-09] MEDS: cefTRIAXone INJ 1,000 MG in SODIUM CHLORIDE 0.9% INJ 100 ML IV SCH (17:19)
[2017-07-09 20:45] LABS: HEMOGLOBIN A1C 7.2 % (4.3-6.0)
[2017-07-09] MEDS ORDERED: TERAZOSIN HCL 1 MG CAP PO SCH (21:00)
[2017-07-09] MEDS: TERAZOSIN HCL 5 MG CAP PO SCH (21:24)
[2017-07-10] VITALS: PULSE 99; RESP 20; TEMP 96.2; O2SAT 97
[2017-07-10 04:00] VITALS: BP 173/76; PULSE 89; RESP 20; TEMP 97.3; O2SAT 98
[2017-07-10 08:00] VITALS: BP 158/75; PULSE 109; RESP 18; TEMP 96.3; O2SAT 98
--- NOTE | 2017-07-10 08:40 | HHI.PR ---
Subjective Remarks slept 6 hours mri done off keppra more alert and walked with PT yest Objective Vital Signs Date Time Temp Pulse Resp B/P (MAP) Pulse Ox O2 Delivery O2 Flow Rate FiO2 07/10/17 04:00 97.3 89 20 173/76 (108) 98 07/10/17 00:00 96.2 99 20 97 07/09/17 20:00 97.5 70 20 140/50 (80) 98 07/09/17 16:00 98.8 78 18 145/78 (100) 95 07/09/17 12:00 98.2 80 18 148/80 (102) 94 I/O 07/09/17 07/09/17 07/09/17 07/10/17 07/10/17 07/10/17 07:00 15:00 23:00 07:00 15:00 23:00 Intake Total 1420 ml 480 ml 120 ml Output Total 250 ml Balance 1170 ml 480 ml 120 ml Intake Oral 420 ml 480 ml 120 ml IV Total 1000 ml Output Urine Total 250 ml # Voids 3 5 4 1 # Bowel Movements 1 0 Result Diagram: 07/07/17 0623 07/09/17 0840 Assessment and Plan Assessment and Plan imp acc to nurse much more alert and oriented this am neg mri eeg neg off keppra uti oob PT slept better ? dc when bp better ldl nl Acosta Sherman MD Jul 10, 2017 08:40
[2017-07-10] MEDS: INSULIN ASPART SUPPLEMENTAL SCALE SQ SCH ×4 (08:43→21:41)
[2017-07-10] MEDS: FINASTERIDE 5 MG TAB PO SCH (08:44)
[2017-07-10] MEDS: ATORVASTATIN 10 MG TAB PO SCH (08:44)
[2017-07-10] MEDS: RIVAROXABAN 15 MG TAB PO SCH (08:44)
[2017-07-10] MEDS: PANTOPRAZOLE SOD 40 MG DELAYED RELEASE TAB PO SCH (08:44)
[2017-07-10] MEDS: DILTIAZEM-CD 180 MG CAP ER PO SCH ×2 (08:44→21:33)
[2017-07-10] MEDS: LOSARTAN 50 MG TAB PO SCH ×2 (08:45→21:33)
--- NOTE | 2017-07-10 11:13 | HHI.PR ---
Subjective Remarks lying in bed, more disoriented no complaints Objective Vitals Vital Signs Date Time Temp Pulse Resp B/P (MAP) Pulse Ox O2 Delivery O2 Flow Rate FiO2 07/10/17 08:00 96.3 109 18 158/75 (102) 98 07/10/17 04:00 97.3 89 20 173/76 (108) 98 07/10/17 00:00 96.2 99 20 97 07/09/17 20:00 97.5 70 20 140/50 (80) 98 07/09/17 16:00 98.8 78 18 145/78 (100) 95 07/09/17 12:00 98.2 80 18 148/80 (102) 94 07/10/17 07/10/17 07/11/17 15:00 23:00 07:00 Intake Total 120 ml Balance 120 ml Intake Oral 120 ml # Voids 1 Result Diagram: 07/07/17 0623 07/09/17 0840 Imaging Last Impressions Brain MRI 07/09/17 0000 Signed Impressions: Service Date/Time: Sunday, July 09, 2017 13:30 - CONCLUSION: No significant gross interval change when compared to 01/28/17. Ventriculomegaly, diffuse T2 prolongation in the supratentorial white matter stable. Diffusion images are nondiagnostic. Kevin Chirstensen MD Head CT 07/06/17 0000 Signed Impressions: Service Date/Time: Thursday, July 06, 2017 16:10 - CONCLUSION: 1. 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 No evidence of acute infarct or hemorrhage 3. No evidence of focal edema. Darren Rocha MD Chest X-Ray 07/06/17 0000 Signed Impressions: Service Date/Time: Thursday, July 06, 2017 16:45 - CONCLUSION: No acute disease. Darren Rocha MD Last Impressions Head CT 07/06/17 0000 Signed Impressions: Service Date/Time: Thursday, July 06, 2017 16:10 - CONCLUSION: 1. 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 No evidence of acute infarct or hemorrhage 3. No evidence of focal edema. Darren Rocha MD Chest X-Ray 07/06/17 0000 Signed Impressions: Service Date/Time: Thursday, July 06, 2017 16:45 - CONCLUSION: No acute disease. Darren Rocha MD Last Impressions Head CT 07/06/17 0000 Signed Impressions: Service Date/Time: Thursday, July 06, 2017 16:10 - CONCLUSION: 1. 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 No evidence of acute infarct or hemorrhage 3. No evidence of focal edema. Darren Rocha MD Chest X-Ray 07/06/17 0000 Signed Impressions: Service Date/Time: Thursday, July 06, 2017 16:45 - CONCLUSION: No acute disease. Darren Rocha MD Objective Remarks lying in bed, conversant thinks his is leaving him lungs clear heart regular abdomen globose , good bowel sounds ext trace edema. left elbow warm to touch, edematous A/P Problem List: (1) Benign essential HTN ICD Codes: I10 - Benign essential HTN Status: Chronic Plan: terazosin 5 mg added last pm (2) CVA (cerebral infarction) ICD Codes: I63.9 - CVA (cerebral infarction) Status: Chronic Plan: with left sided hemiparesis (3) A-fib ICD Codes: I48.91 - A-fib Status: Chronic Plan: on xarelto for afib/.dvt (4) DM type 2 (diabetes mellitus, type 2) ICD Codes: E11.9 - DM type 2 (diabetes mellitus, type 2) Status: Chronic Plan: on tradjenta ssi, will resume metformin (5) UTI (urinary tract infection) ICD Codes: N39.0 - Urinary tract infection, site not specified Status: Acute Plan: culture not really growing anything, rocephin stopped (6) Altered mental status, unspecified ICD Codes: R41.82 - Altered mental status, unspecified Status: Acute Plan: slept better last night but hallucinating now Problem Qualifiers (1) Altered mental status, unspecified: Qualified Codes: R41.82 - Altered mental status, unspecified Elda Lin MD Jul 10, 2017 11:13
--- NOTE | 2017-07-10 11:56 | RADRPT ---
EXAM DATE/TIME: 07/10/2017 11:35 [facility] COMPARISON: CHEST SINGLE AP, July 06, 2017, 16:45. INDICATIONS : Productive cough and short of breath. MEDICAL HISTORY : Cerebrovascular disease. SURGICAL HISTORY : None. ENCOUNTER: Subsequent ACUITY: 1 day PAIN SCORE: 0/10 LOCATION: Bilateral chest FINDINGS: Patient rotation towards the left. The patient's chin obscures the left apex. The visualized portio n of the lungs are clear. The heart is normal size. Both hemidiaphragms are well delineated. CONCLUSION: No infiltrates seen. Kevin Christensen MD on July 10, 2017 at 11:53 Board Certified Radiologist. This report was verified electronically.
[2017-07-10 12:00] VITALS: BP 152/66; PULSE 82; RESP 18; TEMP 96.8; O2SAT 94
[2017-07-10] MEDS: SODIUM CHLOR 0.45% 1000 ML INJ 1,000 ML IV SCH ×2 (13:36→21:29)
[2017-07-10 14:10] LABS: AUTOMATED NEUTROPHIL # 9.3 TH/MM3 (1.8-7.7); BASOPHIL # 0.4 TH/MM3 (0-0.2); BASOPHIL % 3.5 % (0.0-2.0); EOSINOPHIL # 1.2 TH/MM3 (0-0.4); EOSINOPHIL % 9.9 % (0.0-4.0); HEMATOCRIT 38.3 % (39.0-51.0); HEMOGLOBIN 12.5 GM/DL (13.0-17.0); LYMPH % 4.9 % (9.0-44.0); LYMPHOCYTE # 0.6 TH/MM3 (1.0-4.8); MEAN CELL VOLUME 92.3 FL (80.0-100.0); MEAN CORPUSCULAR HEMOGLOBIN 30.1 PG (27.0-34.0); MEAN CORPUSCULAR HGB CONC 32.6 % (32.0-36.0); MEAN PLATELET VOLUME 7.7 FL (7.0-11.0); MONO % 5.7 % (0.0-8.0); MONOCYTE # 0.7 TH/MM3 (0-0.9); PLATELET COUNT 246 TH/MM3 (150-450); RED BLOOD COUNT 4.15 MIL/MM3 (4.50-5.90); WHITE BLOOD COUNT 12.2 TH/MM3 (4.0-11.0)
[2017-07-10 14:19] LABS: CHLORIDE 102 MEQ/L (98-107); SODIUM (NA) 134 MEQ/L (136-145)
[2017-07-10 14:22] LABS: CALCIUM 7.8 MG/DL (8.5-10.1)
[2017-07-10 14:23] LABS: BICARBONATE 24.5 MEQ/L (21.0-32.0); BLOOD UREA NITROGEN 36 MG/DL (7-18); GLUCOSE,RANDOM 181 MG/DL (74-106)
[2017-07-10 14:26] LABS: ALT (GPT) 12 U/L (12-78); AST (GOT) 10 U/L (15-37); GLOMERULAR FILTRATION RATE 39 ML/MIN (>89)
[2017-07-10 14:27] LABS: TOTAL BILIRUBIN ADULT 0.4 MG/DL (0.2-1.0); TOTAL PROTEIN 6.4 GM/DL (6.4-8.2)
[2017-07-10 14:29] LABS: ALKALINE PHOSPHATASE 65 U/L (45-117)
[2017-07-10 16:00] VITALS: BP 161/76; PULSE 70; RESP 18; TEMP 97.1; O2SAT 99
[2017-07-10] MEDS ORDERED: MAGNESIUM HYDROXIDE SUSP 30 ML CUP PO PRN (18:00)
[2017-07-10 20:00] VITALS: BP 197/84; PULSE 91; PULSE 94; RESP 20; TEMP 96.1; O2SAT 95
[2017-07-10] MEDS: TERAZOSIN HCL 5 MG CAP PO SCH (21:33)
[2017-07-11] VITALS: BP 186/70; PULSE 101; RESP 20; TEMP 96.2; O2SAT 94
[2017-07-11 04:00] VITALS: BP 170/74; PULSE 96; RESP 20; TEMP 96.2; O2SAT 95
[2017-07-11 07:05] LABS: AUTOMATED NEUTROPHIL # 7.2 TH/MM3 (1.8-7.7); BASOPHIL # 0.3 TH/MM3 (0-0.2); BASOPHIL % 3.4 % (0.0-2.0); EOSINOPHIL # 1.2 TH/MM3 (0-0.4); EOSINOPHIL % 11.9 % (0.0-4.0); HEMATOCRIT 31.7 % (39.0-51.0); HEMOGLOBIN 10.5 GM/DL (13.0-17.0); LYMPH % 5.3 % (9.0-44.0); LYMPHOCYTE # 0.5 TH/MM3 (1.0-4.8); MEAN CELL VOLUME 92.2 FL (80.0-100.0); MEAN CORPUSCULAR HEMOGLOBIN 30.6 PG (27.0-34.0); MEAN CORPUSCULAR HGB CONC 33.2 % (32.0-36.0); MEAN PLATELET VOLUME 7.6 FL (7.0-11.0); MONO % 6.9 % (0.0-8.0); MONOCYTE # 0.7 TH/MM3 (0-0.9); NEUT % 72.5 % (16.0-70.0); PLATELET COUNT 213 TH/MM3 (150-450); RED BLOOD COUNT 3.44 MIL/MM3 (4.50-5.90); RED CELL DISTRIBUTION WIDTH 13.1 % (11.6-17.2); WHITE BLOOD COUNT 9.9 TH/MM3 (4.0-11.0)
[2017-07-11 07:35] LABS: CALCIUM 7.7 MG/DL (8.5-10.1)
[2017-07-11 07:36] LABS: BICARBONATE 23.1 MEQ/L (21.0-32.0)
[2017-07-11 07:52] LABS: CREATININE 1.4 MG/DL (0.60-1.30)
[2017-07-11 08:00] VITALS: PULSE 74
[2017-07-11] MEDS: INSULIN ASPART SUPPLEMENTAL SCALE SQ SCH ×2 (08:10→11:48)
[2017-07-11 08:55] VITALS: BP 144/63; PULSE 70; RESP 18; TEMP 96.8; O2SAT 96
--- NOTE | 2017-07-11 09:06 | HHI.PR ---
Objective Vital Signs Date Time Temp Pulse Resp B/P (MAP) Pulse Ox O2 Delivery O2 Flow Rate FiO2 07/11/17 04:00 96.2 96 20 170/74 (106) 95 07/11/17 00:00 96.2 101 20 186/70 (108) 94 07/10/17 20:00 94 07/10/17 20:00 96.1 91 20 197/84 (121) 95 07/10/17 16:00 97.1 70 18 161/76 (104) 99 07/10/17 12:00 96.8 82 18 152/66 (94) 94 I/O 07/10/17 07/10/17 07/10/17 07/11/17 07/11/17 07/11/17 07:00 15:00 23:00 07:00 15:00 23:00 Intake Total 120 ml 120 ml 1396 ml 962 ml Balance 120 ml 120 ml 1396 ml 962 ml Intake Oral 120 ml 120 ml 560 ml 120 ml IV Total 836 ml 842 ml # Voids 4 1 5 # Bowel Movements 0 0 Result Diagram: 07/11/17 0631 07/11/17630 Assessment and Plan Assessment and Plan imp acc to nurse much more alert and oriented this am neg mri eeg neg off keppra uti oob PT slept better ? dc when bp better ldl nl 07/11/17 i dw son yest would not rx the hallucinatins best thing is to get him out of hospital agressive bp rx needed and can dc when bp down Acosta Sherman MD Jul 11, 2017 09:06
[2017-07-11] MEDS: FINASTERIDE 5 MG TAB PO SCH (09:27)
[2017-07-11] MEDS: LOSARTAN 50 MG TAB PO SCH (09:27)
[2017-07-11] MEDS: PANTOPRAZOLE SOD 40 MG DELAYED RELEASE TAB PO SCH (09:27)
[2017-07-11] MEDS: DILTIAZEM-CD 180 MG CAP ER PO SCH (09:27)
[2017-07-11] MEDS: RIVAROXABAN 15 MG TAB PO SCH (09:29)
--- NOTE | 2017-07-11 11:53 | HHI.PR ---
Subjective Remarks Review of nursing notes looks like he was restless last night, didnt sleep as much Objective Vitals Vital Signs Date Time Temp Pulse Resp B/P (MAP) Pulse Ox O2 Delivery O2 Flow Rate FiO2 07/11/17 08:55 96.8 70 18 144/63 (90) 96 07/11/17 04:00 96.2 96 20 170/74 (106) 95 07/11/17 00:00 96.2 101 20 186/70 (108) 94 07/10/17 20:00 94 07/10/17 20:00 96.1 91 20 197/84 (121) 95 07/10/17 16:00 97.1 70 18 161/76 (104) 99 07/10/17 12:00 96.8 82 18 152/66 (94) 94 07/11/17 07/11/17 07/12/17 15:00 23:00 07:00 # Voids 1 Result Diagram: 07/11/17 0631 07/11/17 0631 Imaging Last Impressions Brain MRI 07/09/17 0000 Signed Impressions: Service Date/Time: Sunday, July 09, 2017 13:30 - CONCLUSION: No significant gross interval change when compared to 01/28/17. Ventriculomegaly, diffuse T2 prolongation in the supratentorial white matter stable. Diffusion images are nondiagnostic. Kevin Christensen MD Head CT 07/06/17 0000 Signed Impressions: Service Date/Time: Thursday, July 06, 2017 16:10 - CONCLUSION: 1. 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 No evidence of acute infarct or hemorrhage 3. No evidence of focal edema. Darren Rocha MD Chest X-Ray 07/06/17 0000 Signed Impressions: Service Date/Time: Thursday, July 06, 2017 16:45 - CONCLUSION: No acute disease. Darren Rocha MD Last Impressions Head CT 07/06/17 0000 Signed Impressions: Service Date/Time: Thursday, July 06, 2017 16:10 - CONCLUSION: 1. 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 No evidence of acute infarct or hemorrhage 3. No evidence of focal edema. Darren Rocha MD Chest X-Ray 07/06/17 0000 Signed Impressions: Service Date/Time: Thursday, July 06, 2017 16:45 - CONCLUSION: No acute disease. Darren Rocha MD Last Impressions Head CT 07/06/17 0000 Signed Impressions: Service Date/Time: Thursday, July 06, 2017 16:10 - CONCLUSION: 1. 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 No evidence of acute infarct or hemorrhage 3. No evidence of focal edema. Darren Rocha MD Chest X-Ray 07/06/17 0000 Signed Impressions: Service Date/Time: Thursday, July 06, 2017 16:45 - CONCLUSION: No acute disease. Darren Rocha MD Objective Remarks lying in bed deep sleep but aroused with tactile an verbal stimuli lungs clear heart regular abdomen globose , good bowel sounds ext trace edema. left elbow warm to touch, edematous.rash fading on his legs A/P Problem List: (1) Benign essential HTN ICD Codes: I10 - Benign essential HTN Status: Chronic Plan: on cardizem , micardis at home terazosin I think his blood pressure becomes more elevated as he becomes agitated and restless, particularly at night, he has had falls and fractures with hypotensive episodes (2) CVA (cerebral infarction) ICD Codes: I63.9 - CVA (cerebral infarction) Status: Chronic Plan: with left sided hemiparesis (3) A-fib ICD Codes: I48.91 - A-fib Status: Chronic Plan: on xarelto for afib/.dvt (4) DM type 2 (diabetes mellitus, type 2) ICD Codes: E11.9 - DM type 2 (diabetes mellitus, type 2) Status: Chronic Plan: will resume metfomin today as renal function improved with hydration (5) UTI (urinary tract infection) ICD Codes: N39.0 - Urinary tract infection, site not specified Status: Acute Plan: culture not really growing anything, rocephin stopped he developed a light rash yesterday which may have been due to the rocephin, he has taken rocephin in the past but developed a rash with ancef (6) Altered mental status, unspecified ICD Codes: R41.82 - Altered mental status, unspecified Status: Acute Plan: again did not sleep as well last night and sleeping this am. Between son Karen Vicente and I got him out of bed to wheelchair, with stimulus he is more appropriate and alert Assessment and Plan Discussed with son and they would like to take him home and I agree. I was concerned that they would be able to manage him but they do have some assistence with a caretaket to get him up. Dicussed they need to make sure he eats and stays hydrated. They will try to keep him awake and perhaps try melatonin at night as son said this worked one night. At home we may see an improvement in the hallucinations. They will follow up with me on friday. Problem Qualifiers (1) Altered mental status, unspecified: Qualified Codes: R41.82 - Altered mental status, unspecified Elda Lin MD Jul 11, 2017 11:53
[2017-07-11] MEDS ORDERED: SODIUM CHLOR 0.45% 1000 ML INJ 1,000 ML IV SCH (12:00)
[2017-07-11 13:00] VITALS: BP 144/70; PULSE 79; RESP 18; TEMP 96; O2SAT 94
[2017-07-11] MEDS ORDERED: TERA5CAP3 PO (13:26)
[2017-07-11] MEDS ORDERED: CARD180C5 PO (13:26)
[2017-07-11] MEDS ORDERED: TELM40 PO (13:26)
--- NOTE | 2017-07-11 13:29 | HHI.DS ---
Discharge Summary Admission Date Jul 06, 2017 at 22:02 Admitting Diagnosis Altered mental status vs TIA (1) Altered mental status, unspecified Diagnosis: Principal ICD Codes: R41.82 - Altered mental status, unspecified Status: Chronic (2) Benign essential HTN Diagnosis: Secondary ICD Codes: I10 - Benign essential HTN Status: Chronic (3) CVA (cerebral infarction) ICD Codes: I63.9 - CVA (cerebral infarction) Status: Chronic (4) A-fib Diagnosis: Secondary ICD Codes: I48.91 - A-fib Status: Chronic (5) DM type 2 (diabetes mellitus, type 2) Diagnosis: Secondary ICD Codes: E11.9 - DM type 2 (diabetes mellitus, type 2) Status: Chronic (6) UTI (urinary tract infection) Diagnosis: Secondary ICD Codes: N39.0 - Urinary tract infection, site not specified Status: Resolved CBC/BMP: 07/11/17 0631 07/11/17 0631 Significant Findings Laboratory Tests Test 07/09/17 08:40 07/10/17 13:50 07/11/17 06:31 Blood Urea Nitrogen 33 MG/DL (7-18) 36 MG/DL (7-18) 33 MG/DL (7-18) Creatinine 1.50 MG/DL (0.60-1.30) 1.70 MG/DL (0.60-1.30) 1.40 MG/DL (0.60-1.30) Random Glucose 173 MG/DL (74-106) 181 MG/DL (74-106) 283 MG/DL (74-106) Total Protein 5.7 GM/DL (6.4-8.2) Albumin 2.6 GM/DL (3.4-5.0) 3.0 GM/DL (3.4-5.0) Calcium Level 7.6 MG/DL (8.5-10.1) 7.8 MG/DL (8.5-10.1) 7.7 MG/DL (8.5-10.1) Aspartate Amino Transf (AST/SGOT) 10 U/L (15-37) 10 U/L (15-37) Sodium Level 135 MEQ/L (136-145) 134 MEQ/L (136-145) 135 MEQ/L (136-145) Estimat Glomerular Filtration Rate 45 ML/MIN (>89) 39 ML/MIN (>89) 48 ML/MIN (>89) Hemoglobin A1c 7.2 % (4.3-6.0) Cholesterol Level 101 MG/DL (120-200) HDL Cholesterol 38.3 MG/DL (40.0-60.0) White Blood Count 12.2 TH/MM3 (4.0-11.0) Red Blood Count 4.15 MIL/MM3 (4.50-5.90) 3.44 MIL/MM3 (4.50-5.90) Hemoglobin 12.5 GM/DL (13.0-17.0) 10.5 GM/DL (13.0-17.0) Hematocrit 38.3 % (39.0-51.0) 31.7 % (39.0-51.0) Neutrophils (%) (Auto) 76.0 % (16.0-70.0) 72.5 % (16.0-70.0) Lymphocytes (%) (Auto) 4.9 % (9.0-44.0) 5.3 % (9.0-44.0) Eosinophils (%) (Auto) 9.9 % (0.0-4.0) 11.9 % (0.0-4.0) Basophils (%) (Auto) 3.5 % (0.0-2.0) 3.4 % (0.0-2.0) Neutrophils # (Auto) 9.3 TH/MM3 (1.8-7.7) Lymphocytes # (Auto) 0.6 TH/MM3 (1.0-4.8) 0.5 TH/MM3 (1.0-4.8) Eosinophils # (Auto) 1.2 TH/MM3 (0-0.4) 1.2 TH/MM3 (0-0.4) Basophils # (Auto) 0.4 TH/MM3 (0-0.2) 0.3 TH/MM3 (0-0.2) PE at Discharge lying in bed deep sleep but aroused with tactile an verbal stimuli lungs clear heart regular abdomen globose , good bowel sounds ext trace edema. left elbow warm to touch, edematous.rash fading on his legs Pt Condition on Discharge: Fair Discharge Disposition: Disch w/ Home Health Serv Discharge Instructions DIET: Follow Instructions for: Diabetic Diet Activities you can perform: Regular-No Restrictions Elda Lin MD Jul 11, 2017 13:29
--- NOTE | 2017-07-11 13:31 | HHI.FF ---
Face to Face Verification Diagnosis: (1) HTN (hypertension) (2) A-fib (3) DM type 2 (diabetes mellitus, type 2) (4) CVA (cerebral infarction) (5) Altered mental status, unspecified Physical Therapy Order: Evaluate and Treat, Improve ambulation, Strength and gait training Home Health Nursing Order: Medical education Nursing assessment with vital signs I have seen patient Prem Marcelino on 07/11/17. My clinical findings support the need for the requested home health care services because: Ltd mobility - disease progression Deconditioned w/ increased weakness Impaired cognition/judgement High risk of falls I certify that my clinical findings support that this patient is homebound because: Impaired cognitive ability/safety Unsteady gait/balance Unsafe to leave home unassisted Elda Lin MD Jul 11, 2017 13:31
--- NOTE | 2017-07-11 13:33 | HHI.PR ---
Objective Vital Signs Date Time Temp Pulse Resp B/P (MAP) Pulse Ox O2 Delivery O2 Flow Rate FiO2 07/11/17 08:55 96.8 70 18 144/63 (90) 96 07/11/17 04:00 96.2 96 20 170/74 (106) 95 07/11/17 00:00 96.2 101 20 186/70 (108) 94 07/10/17 20:00 94 07/10/17 20:00 96.1 91 20 197/84 (121) 95 07/10/17 16:00 97.1 70 18 161/76 (104) 99 I/O 07/10/17 07/10/17 07/10/17 07/11/17 07/11/17 07/11/17 07:00 15:00 23:00 07:00 15:00 23:00 Intake Total 120 ml 120 ml 1396 ml 962 ml Balance 120 ml 120 ml 1396 ml 962 ml Intake Oral 120 ml 120 ml 560 ml 120 ml IV Total 836 ml 842 ml # Voids 4 1 5 2 # Bowel Movements 0 0 1 Result Diagram: 07/11/1731 07/11/17630 Objective Remarks awakens but sleeping in chair off on yr and month knows he is in hospital Assessment and Plan Assessment and Plan imp acc to nurse much more alert and oriented this am neg mri eeg neg off keppra uti oob PT slept better ? dc when bp better ldl nl 07/11/17 i dw son yest would not rx the hallucinatins best thing is to get him out of hospital agressive bp rx needed and can dc when bp down 07/11/17 1:32pm confused not any more alert right now off keppra try namenda some dementia old cva could dc when bp better and fu office Acosta Sherman MD Jul 11, 2017 13:33
[2017-07-11] MEDS ORDERED: MEMANTINE HCL 5 MG TAB PO ONE (14:00)
--- NOTE | 2017-07-11 16:21 | HM ---
Date Performed: 07/09/2017 Time Performed: 19:30:00 HOOKUP DATE: 07/09/17 07:30:00 PM Wed ANALYSIS START TIME: 07/09/2017 7:35:00 PM ANALYSIS END TIME: 07/10/2017 7:38:59 PM PATIENT AGE: 86 PATIENT HEIGHT PATIENT WEIGHT DRUG LIST PATIENT DIAGNOSIS: stroke TEST NARRATIVE: The patient's average heart rate was 91 BPM. Heart rates greater than 120 B PM were noted < 1% of the time. No episodes of bradycardia were noted. No pauses exceeding 2.0 s econds were noted. 98 ventricular ectopics, which represented < 1% of the total beat count, were noted. The highest ventricular ectopic frequency occurred from 04:00 AM to 05:00 AM Penelope. During thi s time 11 VE(s) occurred. Ventricular ectopics were observed as 98 isolated beat(s) only. No couple ts or runs were noted. 796 supraventricular ectopics, which represented 1% of the total beat coun t, were noted. The highest supraventricular ectopic frequency occurred from 11:00 PM to 12:00 AM Penelope . During this time 77 SVE(s) occurred. No episodes of ST depression (defined as -1.0 mm or more) were noted in channel 1. No episodes of ST depression (defined as -1.0 mm or more) were noted in ch matt 2. No episodes of ST depression (defined as -1.0 mm or more) were noted in channel 3. no diar y maintained, poor quality tracing TEST INTERPRETATION: The underlying rhythm appears to be Sinus rhythm . No sustained arrhythmias are seen. There is one 7-beat run of an irregular tachycardia probably an atrial tachycardia, likely of no clinical significance, though a brief episode of atrial fibrillat ion cannot be completely excluded. Signed by : Tato Betancourt
[2017-07-12] MEDS ORDERED: MEMANTINE HCL 5 MG TAB PO SCH (09:00)
[2017-07-18] MEDS ORDERED: MEMANTINE HCL 5 MG TAB PO SCH (09:00)
[2017-07-25] MEDS ORDERED: MEMANTINE HCL 10 MG TAB PO SCH (09:00)
== END 2017-07-11 17:11 | disposition home health service (06) | DRG 948 ==
LOC: PHED 16:06 → PHEDA 17:51 → PH3A 18:55 → OBSVTOIN 22:02
PROVIDERS: ADMIT Legal Medicine; ATTEND Legal Medicine
DX: R41.82 Altered mental status, unspecified (principal); I69.354 Hemiplegia and hemiparesis following cerebral infarction affecting left non-dominant side; I48.91 Unspecified atrial fibrillation; F03.90 Unspecified dementia, unspecified severity, without behavioral disturbance, psychotic disturbance, mood disturbance, and anxiety; E11.9 Type 2 diabetes mellitus without complications; I10 Essential (primary) hypertension; R47.01 Aphasia; R44.3 Hallucinations, unspecified; Z79.02 Long term (current) use of antithrombotics/antiplatelets; Z79.84 Long term (current) use of oral hypoglycemic drugs; L27.0 Generalized skin eruption due to drugs and medicaments taken internally; E78.5 Hyperlipidemia, unspecified; H91.90 Unspecified hearing loss, unspecified ear; R60.0 Localized edema; K21.9 Gastro-esophageal reflux disease without esophagitis; M10.9 Gout, unspecified; Z86.718 Personal history of other venous thrombosis and embolism; Z85.828 Personal history of other malignant neoplasm of skin
CPT/HCPCS: 70450; 70551; 71045; 76937; 80048; 80053; 80061; 80177; 81001; 82140; 82550; 82948; 83036; 84484; 84550; 85025; 85384; 85610; 85730; 87086; 93005; 93225; 93226; 95819; 99291; J0696; J1815; J7030

== ENCOUNTER 2017-10-19 13:54 | Observation (INO) ==
[2017-10-19] MEDS ORDERED: Morphine Sulfate Inj 2 MG/ML Vial IV.PUSH ONE (14:01)
--- NOTE | 2017-10-19 14:35 | ED ---
HPI General Chief complaint: Fall Stated complaint: Fall Time Seen by Provider: 10/19/17 14:00 History of Present Illness HPI narrative: This is an 87-year-old male who presents to the emergency department having had a fall yesterday evening. He became unsteady and his tried to catch him but he fell to the ground and his left rib cage and elbow hit some furniture. His family helped him to bed but this morning when he woke up he had severe pain in the left chest wall, constant, worse with movement and improved with rest. He was unable to get up due to pain. His gave him an oxycodone at home. He evidently has had frequent falls ever since he had a stroke that left chronic weakness on his left side of his body. 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 Related Data Home Medications Medication Instructions Recorded Confirmed alendronate [Fosamax] 70 mg PO QWEEK 10/17/17 10/17/17 allopurinol 100 mg PO DAILY 10/17/17 10/17/17 amlodipine 5 mg PO HS 10/17/17 10/17/17 atorvastatin See Label Instructions .ROUTE 10/17/17 10/17/17 .COMPLEX calcium carbonate [Calcium 500] 1,000 mg PO BID 10/17/17 10/17/17 clonidine HCl 0.5 mg PO BID 10/17/17 10/17/17 diltiazem HCl [Cartia XT] 180 mg PO BID 10/17/17 10/17/17 ferrous sulfate [FeroSul] 325 mg PO HS 10/17/17 10/17/17 finasteride 5 mg PO DAILY 10/17/17 10/17/17 hydralazine 50 mg PO BID 10/17/17 10/17/17 linagliptin [Tradjenta] 40 mg PO HS 10/17/17 10/17/17 metformin 750 mg PO BID 10/17/17 10/17/17 pantoprazole 40 mg PO DAILY 10/17/17 10/17/17 rivaroxaban [Xarelto] 15 mg PO QPM 10/17/17 10/17/17 telmisartan 40 mg PO DAILY 10/17/17 10/17/17 telmisartan [Micardis] 40 mg PO HS 10/17/17 10/17/17 terazosin 5 mg PO HS 10/17/17 10/17/17 Vitamin D3 10/19/17 alendronate [Fosamax] 70 mg PO QWEEK 10/19/17 10/19/17 allopurinol 100 mg PO DAILY 10/19/17 10/19/17 atorvastatin See Label Instructions .ROUTE 10/19/17 10/19/17 .COMPLEX calcium carbonate [Calcium 500] 1,000 mg PO BID 10/19/17 10/19/17 clonidine HCl 0.5 mg PO BID 10/19/17 10/19/17 diltiazem HCl [Cartia XT] 180 mg PO BID 10/19/17 10/19/17 finasteride 5 mg PO DAILY 10/19/17 10/19/17 furosemide 40 mg PO BID 10/19/17 10/19/17 hydralazine 50 mg PO BID 10/19/17 10/19/17 linagliptin [Tradjenta] 5 mg PO DAILY 10/19/17 10/19/17 metformin 750 mg PO BID 10/19/17 10/19/17 multivitamin [Multiple Vitamins] 1 tab PO DAILY 10/19/17 10/19/17 pantoprazole 40 mg PO DAILY 10/19/17 10/19/17 rivaroxaban [Xarelto] 15 mg PO DAILY 10/19/17 10/19/17 tamsulosin 10/19/17 telmisartan [Micardis] 40 mg PO BID 10/19/17 10/19/17 Previous Rx's Medication Instructions Recorded tamsulosin 0.4 mg PO DAILY 30 Days #30 cap 10/17/17 Allergies Allergy/AdvReac Type Severity Reaction Status Date / Time azithromycin Allergy Severe Rash Verified 10/19/17 15:11 diatrizoate meglumine Allergy Severe Rash Verified 10/19/17 15:11 gadobenic acid Allergy Severe Rash Verified 10/19/17 15:11 gadodiamide Allergy Severe Rash Verified 10/19/17 15:11 gadoteridol Allergy Severe Rash Verified 10/19/17 15:11 iodine Allergy Severe Rash Verified 10/19/17 15:11 iodixanol Allergy Severe Rash Verified 10/19/17 15:11 iohexol Allergy Severe Rash Verified 10/19/17 15:11 levofloxacin Allergy Severe Confusion Verified 10/19/17 15:11 lisinopril Allergy Severe Rash, Verified 10/19/17 15:11 edema potassium iodide Allergy Severe Rash Verified 10/19/17 15:11 povidone-iodine Allergy Severe Rash Unverified 10/17/17 17:29 sodium iodide Allergy Severe Rash Verified 10/19/17 15:11 sodium iodide Allergy Severe Rash Unverified 10/17/17 17:29 meloxicam Allergy Unknown Unknown Verified 10/19/17 15:11 penicillin G AdvReac Severe Rash Verified 10/19/17 15:11 Review of Systems Except as stated in HPI: all other systems reviewed are negative [facility] Medical History Medical History GERD (gastroesophageal reflux disease) (Acute) Gout (Acute) High cholesterol (Acute) Anemia (Acute) BPH (benign prostatic hyperplasia) (Acute) CVA (cerebral vascular accident) (Acute) Diabetes (Acute) Femoral fracture (Acute) H/O urinary retention (Acute) Hip fracture (Acute) Hypertension (Acute) Peripheral edema (Acute) Pneumonia (Acute) TIA (transient ischemic attack) (Acute) Social History Social History Substance History: No History of Abuse Second Hand Smoke Exposure: No Smoking Status: Never smoker How Often Do You Have a Drink Containing Alcohol: Never Recent Travel in [facility] within the Last 8 Weeks: No Recent Out of Country Travel within the Last 8 Weeks: No Immunization History Tetanus Immunization: <5 Years Hx Influenza Vaccine This Season: Yes Exam Narrative Exam Narrative: GENERAL: Frail elderly male, uncomfortable appearing SKIN: Focused skin assessment warm and dry. HEAD: Atraumatic. Normocephalic. EYES: Pupils equal and round. No injection or drainage. ENT: Moist mucous membranes NECK: Trachea midline. CARDIOVASCULAR: Regular rate and rhythm. No murmur appreciated. RESPIRATORY: Clear to auscultation. Breath sounds equal bilaterally. GASTROINTESTINAL: Abdomen soft, non-tender, nondistended. MUSCULOSKELETAL: Tender to palpation over the left lower posterior rib cage. No focal vertebral tenderness. Painless range of motion of the left hip. Swelling and effusion over the left elbow. Left upper extremity is contracted and left lower extremity is shortened compared to the right. NEUROLOGICAL: Awake and alert. No obvious cranial nerve deficits. Moving all extremities. PSYCHIATRIC: Appropriate mood and affect; insight and judgment normal. Course Initial Documented Vital Signs Temperature 98.7 F 10/19/17 14:12 Pulse Rate 87 10/19/17 14:12 Respiratory Rate 18 10/19/17 14:12 Blood Pressure 190/57 H 10/19/17 14:12 Pulse Oximetry 95 10/19/17 14:12 Last Documented Vital Signs Temperature 98.7 F 10/19/17 14:12 Pulse Rate 83 10/19/17 16:20 Respiratory Rate 18 10/19/17 16:20 Blood Pressure 167/71 H 10/19/17 16:20 Pulse Oximetry 97 10/19/17 16:20 Medical Decision Making MDM Narrative Medical decision making narrative: This is an 87-year-old male who presents to the emergency department having had a fall yesterday, here because he was unable to ambulate secondary to severe pain. He was placed on a monitor and an IV was established. He was found to be hypoxic to 88% on room air. X-ray demonstrates a left-sided rib fracture and pulmonary edema. Labs demonstrate worsening renal insufficiency. Patient symptoms improved with IV morphine. I had a long conversation with the patient. His congestive heart failure appears to be worsening in conjunction with his chronic kidney disease. He has significantly limited ambulation secondary femur surgeries. Their goal is to go home and they are hesitant to engage in escalated levels of care like dialysis. The patient has a living will which him and his state says they would not want heroic measures at the end of life. Patient also has a DNR and he reiterated to me that he would not want to be resuscitated if he were to in the hospital. I think the patient would benefit from IV diuresis, pain control and palliative care consultation. Differential Diagnosis Differential Diagnosis: Pneumonia, congestive heart failure, pulmonary contusion , pneumothorax Lab Data Result diagrams: 10/19/17 14:40 10/19/17 14:40 Lab Results 10/19/17 10/19/17 10/19/17 Range/Units 14:40 14:40 15:00 CBC w Diff Auto diff final WBC 10.1 (4.0-11.0) th/mm3 RBC 3.31 L (4.50-5.90) mil/mm3 Hgb 10.2 L (13.0-17.0) gm/dL Hct 31.5 L (39.0-51.0) % MCV 95.3 (80.0-100.0) fL MCH 30.8 (27.0-34.0) pg MCHC 32.3 (32.0-36.0) % RDW 13.2 (11.6-17.2) % Plt Count 220 (150-450) th/mm3 MPV 7.6 (7.0-11.0) fL Neut % (Auto) 91.4 H (16.0-70.0) % Lymph % (Auto) 4.6 L (9.0-44.0) % [place] % (Auto) 2.7 (0.0-8.0) % Eos % (Auto) 0.8 (0.0-4.0) % Baso % (Auto) 0.5 (0.0-2.0) % Neut # (Auto) 9.1 H (1.8-7.7) th/mm3 Lymph # (Auto) 0.5 L (1.0-4.8) th/mm3 [place] # (Auto) 0.3 (0.0-0.9) th/mm3 Eos # (Auto) 0.1 (0.0-0.4) th/mm3 Baso # (Auto) 0.1 (0.0-0.2) th/mm3 WBC Differential . Differential Comment . Sodium 128 L (136-145) meq/L Potassium 4.8 (3.5-5.1) meq/L Chloride 95 L (98-107) meq/L Carbon Dioxide 23.4 (21.0-32.0) meq/L Anion Gap 10 (5-15) meq/L BUN 52 H (7-18) mg/dL Creatinine 1.90 H (0.60-1.30) mg/dL Estimated GFR 34 L (>89) mL/min Random Glucose 194 H (74-106) mg/dL Calcium 8.8 (8.5-10.1) mg/dL Total Bilirubin 0.3 (0.2-1.0) mg/dL AST 8 L (15-37) U/L ALT 17 (12-78) U/L Alkaline Phosphatase 54 (45-117) U/L B-Natriuretic Peptide 147 H (0-100) pg/mL Total Protein 6.8 (6.4-8.2) g/dL Albumin 3.4 (3.4-5.0) g/dL Imaging Data Radiologist's impression: Chest X-Ray 10/19/17 14:00 CONCLUSION: Left upper rib fracture age uncertain. Cardiomegaly and findings of congestive heart failure. Elbow X-Ray 10/19/17 14:00 CONCLUSION: Joint effusion without evidence of fracture. Occult radial head fracture is not excluded Discharge Plan Discharge Disposition Patient Disposition: 30 Still Patient Discharge Condition Condition: Stable Discharge Details Diagnosis: Congestive heart failure, Closed rib fracture Physicians Team ED Provider: Tomasa Lund Primary Care Provider: Elda Ortiz Attending Provider: Genaro Mendosa Other Providers: Leighton Cole Discharge Interventions Interventions: Vital Signs Last Done: 10/19/17 16:20 Status ED Status: Admitted Patient
[2017-10-19 14:48] LABS: Baso # (Auto) 0.1 th/mm3 (0.0-0.2); Baso % (Auto) 0.5 % (0.0-2.0); Eos # (Auto) 0.1 th/mm3 (0.0-0.4); Eos % (Auto) 0.8 % (0.0-4.0); Hematocrit 31.5 % (39.0-51.0); Hemoglobin 10.2 gm/dL (13.0-17.0); Lymph # (Auto) 0.5 th/mm3 (1.0-4.8); Lymph % (Auto) 4.6 % (9.0-44.0); Mean Corpuscular HGB Conc 32.3 % (32.0-36.0); Mean Corpuscular Hemoglobin 30.8 pg (27.0-34.0); Mean Corpuscular Volume 95.3 fL (80.0-100.0); Mean Platelet Volume 7.6 fL (7.0-11.0); Mono # (Auto) 0.3 th/mm3 (0.0-0.9); Mono % (Auto) 2.7 % (0.0-8.0); Neut # (Auto) 9.1 th/mm3 (1.8-7.7); Neut % (Auto) 91.4 % (16.0-70.0); Platelet Count 220 th/mm3 (150-450); Red Blood Count 3.31 mil/mm3 (4.50-5.90); Red Cell Distribution Width 13.2 % (11.6-17.2); White Blood Count 10.1 th/mm3 (4.0-11.0)
[2017-10-19 14:58] LABS: Chloride 95 meq/L (98-107); Potassium 4.8 meq/L (3.5-5.1); Sodium 128 meq/L (136-145)
[2017-10-19 15:01] LABS: Calcium 8.8 mg/dL (8.5-10.1)
[2017-10-19 15:02] LABS: Albumin 3.4 g/dL (3.4-5.0); Anion Gap 10 meq/L (5-15); Blood Urea Nitrogen 52 mg/dL (7-18); Carbon Dioxide 23.4 meq/L (21.0-32.0); Glucose,Random 194 mg/dL (74-106)
--- NOTE | 2017-10-19 15:02 | XR ---
EXAM DATE: 10/19/2017 2:47 PM EDT AGE/SEX: 87 years / Male INDICATIONS: Fall, left elbow pain CLINICAL DATA: This is the patient's initial encounter. Patient reports that signs and symptoms have been present for 1 day and indicates a pain score of 10/10. MEDICAL/SURGICAL HISTORY: Stroke. Cardiovascular disease. None. COMPARISON: No prior exams available for comparison. FINDINGS: A joint effusion is present. Osseous structures are osteopenic. There is no evidence of acute fractur e. CONCLUSION: Joint effusion without evidence of fracture. Occult radial head fracture is not excluded Electronically signed by: Acosta Jacobo MD 10/19/2017 3:01 PM EDT
--- NOTE | 2017-10-19 15:04 | XR ---
EXAM DATE: 10/19/2017 2:44 PM EDT AGE/SEX: 87 years / Male INDICATIONS: Fall on left side CLINICAL DATA: This is the patient's initial encounter. Patient reports that signs and symptoms have been present for 1 day and indicates a pain score of 10/10. MEDICAL/SURGICAL HISTORY: Stroke. Cardiovascular disease. None. COMPARISON: [facility], CHEST SINGLE AP, 07/10/2017. . FINDINGS: The patient is rotated left posterior oblique projection. There are findings of congestive heart fail ure with interstitial and alveolar opacity bilaterally. The cardiac silhouette is enlarged in transv erse diameter. Moderate size bilateral pleural effusions are present left greater than right. There i s no evidence of pneumothorax. There is a fracture of one of the upper left ribs age uncertain. CONCLUSION: Left upper rib fracture age uncertain. Cardiomegaly and findings of congestive heart failure. Electronically signed by: Acosta Jacobo MD 10/19/2017 3:03 PM EDT
[2017-10-19 15:05] LABS: Alanine Aminotransferase 17 U/L (12-78); Aspartate Aminotransferase 8 U/L (15-37); Glomerular Filtration Rate 34 mL/min (>89)
[2017-10-19 15:06] LABS: Total Protein 6.8 g/dL (6.4-8.2)
[2017-10-19 15:08] LABS: Alkaline Phosphatase 54 U/L (45-117)
[2017-10-19] MEDS ORDERED: Dextrose 50% in Water 50 ML Vial IV.PUSH PRN (18:07)
[2017-10-19] MEDS ORDERED: Bisacodyl 10 MG Supp RECTAL PRN (18:10)
[2017-10-19] MEDS ORDERED: Temazepam 15 MG Capsule PO PRN (18:10)
--- NOTE | 2017-10-19 18:35 | P.HP ---
History of Present Illness Service: [facility] hospitalist Primary Care Physician: Elda Ortiz MD Chief Complaint: chest pain sob History of Present Illness: 87-year-old white male who presents to the emergency department having had a fall yesterday. Patient became unsteady and his tried to catch him but he fell to the ground and hit his left rib cage and elbow on some furniture. He was helped to the bed this morning when he woke up he had severe pain in left chest wall which was constant worse with movement and improved with rest. He was unable to get up due to the pain. His gave him a pain pill that she had at home. Patient and both state he has had frequent falls at home ever since he had a stroke that left chronic weakness on his left side of his body. 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 Of note he came to the emergency room on Friday with difficulty urination and catheter was placed which is still in place at this time. In the emergency room he was found to be hypoxic and he was started on oxygen. Patient had a chest x-ray which showed some mild congestive heart failure although BNP is within normal limits he was given 1 dose of IV Lasix we will continue his p.o. Lasix at this time. We will also ask case management to see what we could do for the patient as he does not want to go to a rehab center. - Diagnosis (1) Closed rib fracture (2) Congestive heart failure (3) CKD (chronic kidney disease) stage 3, GFR 30-59 ml/min (4) Diabetes Inpatient Certification: I certify that the inpatient services were ordered in accordance with Medicare regulations governing the order. This includes certification that hospital inpatient services are reasonable and necessary and in the case of services not specified as inpatient-only under 42 CFR 419.22(n), that they are appropriately provided as inpatient services in accordance to with the 2-midnight benchmark under 43 CFR 412.3(e) Review of Systems Constitutional: Reports body ache(s), Reports lack of energy Cardiovascular: Reports chest pain, Reports leg swelling, Reports shortness of breath Genitourinary: Reports decreased urination Musculoskeletal: Reports joint pain, Reports joint swelling Neurologic: Reports abnormal walking PMF - History History Provided By: Patient, Family Member - Medical History Medical History: Medical History (Last Reviewed 10/19/17 @ 14:34 by Tomasa Lund MD) GERD (gastroesophageal reflux disease) Gout High cholesterol Anemia BPH (benign prostatic hyperplasia) CVA (cerebral vascular accident) Diabetes Femoral fracture H/O urinary retention Hip fracture Hypertension Peripheral edema Pneumonia TIA (transient ischemic attack) - Tobacco History Second Hand Smoke Exposure: No Smoking Status: Never smoker - Alcohol History How Often Do You Have a Drink Containing Alcohol: Never - Substance Use History Substance History: No History of Abuse - Travel History Recent Travel in the [place] Within the Last 8 Weeks: No Recent Travel Out of the Country Within the Last 8 Weeks: No - Immunization History Tetanus Immunization: <5 Years Hx Influenza Vaccine This Season: Yes Medications and Allergies Active Medications: Active Medications Al Hydroxide/Mg Hydroxide (Milk Of Magnesia Liq) 30 ml PO Q12H PRN PRN Reason: Mild Constipation Alendronate Sodium (Fosamax) 70 mg PO QWEEK LYDIA Allopurinol (Zyloprim) 100 mg PO DAILY LYDIA Bisacodyl (Dulcolax Supp) 10 mg RECTAL DAILY PRN PRN Reason: SEVERE CONSITIPATION Dextrose (D50w Vial) 50 ml IV.PUSH UNSCH PRN PRN Reason: PER HYPOGLYCEMIA PROTOCOL Ferrous Sulfate (Ferosul) 325 mg PO HS LYDIA Furosemide (Lasix) 40 mg PO BID LYDIA Glucagon (Glucagon Inj) 1 mg OTHER PRN PRN PRN Reason: for Hypoglycemia Protocol Insulin Aspart (Novolog Insulin Suppl Scale Inj) 0 unit SQ Q6HR LYDIA; Protocol Lactulose (Lactulose Liq) 30 ml PO DAILY PRN PRN Reason: SEVERE CONSITIPATION Morphine Sulfate (Morphine Inj) 2 mg IV.PUSH Q4H PRN PRN Reason: PAIN SCALE 6 TO 10 Non-Formulary Medication (Clonidine Hcl [Clonidine Hcl]) 0.5 mg PO BID LYDIA Non-Formulary Medication (Linagliptin [Tradjenta]) 5 mg PO DAILY LYDIA Non-Formulary Medication (Linagliptin [Tradjenta]) 40 mg PO HS LYDIA Non-Formulary Medication (Multivitamin [Multiple Vitamins]) 1 tab PO DAILY LYDIA Non-Formulary Medication (Pantoprazole [Pantoprazole]) 40 mg PO DAILY LYDIA Non-Formulary Medication (Telmisartan) 40 mg PO BID LYDIA Non-Formulary Medication (Telmisartan) 40 mg PO HS LYDIA Non-Formulary Medication (Telmisartan [Telmisartan]) 40 mg PO DAILY [facility] Ondansetron HCl (Zofran Inj) 4 mg IV.PUSH Q6H PRN PRN Reason: NAUSEA OR VOMITING Rivaroxaban (Xarelto) 15 mg PO QPM [facility] Rivaroxaban (Xarelto) 15 mg PO DAILY [facility] Senna/Docusate Sodium (Jo Ann-Colace) 1 tab PO BID [facility] Sennosides (Senokot) 17.2 mg PO Q12H PRN PRN Reason: Moderate Constipation Temazepam (Restoril) 15 mg PO HS PRN PRN Reason: INSOMNIA Allergies Allergy/AdvReac Type Severity Reaction Status Date / Time azithromycin Allergy Severe Rash Verified 10/19/17 17:39 diatrizoate meglumine Allergy Severe Rash Verified 10/19/17 17:26 gadobenic acid Allergy Severe Rash Verified 10/19/17 17:26 gadodiamide Allergy Severe Rash Verified 10/19/17 17:26 gadoteridol Allergy Severe Rash Verified 10/19/17 17:26 iodine Allergy Severe Rash Verified 10/19/17 17:26 iodixanol Allergy Severe Rash Verified 10/19/17 17:26 iohexol Allergy Severe Rash Verified 10/19/17 17:26 levofloxacin Allergy Severe Confusion Verified 10/19/17 17:26 lisinopril Allergy Severe Rash, Verified 10/19/17 17:26 edema potassium iodide Allergy Severe Rash Verified 10/19/17 17:26 povidone-iodine Allergy Severe Rash Unverified 10/19/17 17:26 sodium iodide Allergy Severe Rash Verified 10/19/17 17:26 sodium iodide Allergy Severe Rash Unverified 10/19/17 17:26 meloxicam Allergy Unknown Unknown Verified 10/19/17 17:26 penicillin G AdvReac Severe Rash Verified 10/19/17 17:26 Home Medications Medication Instructions Recorded Confirmed Type alendronate [Fosamax] 70 mg PO QWEEK 10/17/17 10/17/17 History allopurinol 100 mg PO DAILY 10/17/17 10/17/17 History amlodipine 5 mg PO HS 10/17/17 10/17/17 History atorvastatin See Label Instructions .ROUTE 10/17/17 10/17/17 History .COMPLEX calcium carbonate [Calcium 500] 1,000 mg PO BID 10/17/17 10/17/17 History clonidine HCl 0.5 mg PO BID 10/17/17 10/17/17 History diltiazem HCl [Cartia XT] 180 mg PO BID 10/17/17 10/17/17 History ferrous sulfate [FeroSul] 325 mg PO HS 10/17/17 10/17/17 History finasteride 5 mg PO DAILY 10/17/17 10/17/17 History hydralazine 50 mg PO BID 10/17/17 10/17/17 History linagliptin [Tradjenta] 40 mg PO HS 10/17/17 10/17/17 History metformin 750 mg PO BID 10/17/17 10/17/17 History pantoprazole 40 mg PO DAILY 10/17/17 10/17/17 History rivaroxaban [Xarelto] 15 mg PO QPM 10/17/17 10/17/17 History telmisartan 40 mg PO DAILY 10/17/17 10/17/17 History telmisartan [Micardis] 40 mg PO HS 10/17/17 10/17/17 History terazosin 5 mg PO HS 10/17/17 10/17/17 History Vitamin D3 10/19/17 History alendronate [Fosamax] 70 mg PO QWEEK 10/19/17 10/19/17 History allopurinol 100 mg PO DAILY 10/19/17 10/19/17 History atorvastatin See Label Instructions .ROUTE 10/19/17 10/19/17 History .COMPLEX calcium carbonate [Calcium 500] 1,000 mg PO BID 10/19/17 10/19/17 History clonidine HCl 0.5 mg PO BID 10/19/17 10/19/17 History diltiazem HCl [Cartia XT] 180 mg PO BID 10/19/17 10/19/17 History finasteride 5 mg PO DAILY 10/19/17 10/19/17 History furosemide 40 mg PO BID 10/19/17 10/19/17 History hydralazine 50 mg PO BID 10/19/17 10/19/17 History linagliptin [Tradjenta] 5 mg PO DAILY 10/19/17 10/19/17 History metformin 750 mg PO BID 10/19/17 10/19/17 History multivitamin [Multiple Vitamins] 1 tab PO DAILY 10/19/17 10/19/17 History pantoprazole 40 mg PO DAILY 10/19/17 10/19/17 History rivaroxaban [Xarelto] 15 mg PO DAILY 10/19/17 10/19/17 History tamsulosin 10/19/17 History telmisartan [Micardis] 40 mg PO BID 10/19/17 10/19/17 History Exam Vital signs: Vital Signs 10/19/17 14:12 10/19/17 14:49 10/19/17 16:20 Temperature 98.7 F Pulse Rate 87 86 83 Respiratory Rate 18 20 18 Blood Pressure 190/57 H 170/69 H 167/71 H Pulse Oximetry 95 97 97 10/19/17 16:54 Temperature 97.6 F Pulse Rate 94 H Respiratory Rate 20 Blood Pressure 192/79 H Pulse Oximetry 96 Intake & Output 10/18/17 10/19/17 10/19/17 18:59 06:59 18:59 Output Total 400 / 400 Balance -400 / -400 Weight 76.6 kg Output: Urine Amount (Catheter) 400 / 400 Indwelling Urethral Catheter 400 / 400 Other: Weight On Admission 76.6 kg Narrative: GENERAL: SKIN: Warm and dry. HEAD: Atraumatic. Normocephalic. EYES: Pupils equal and round. No scleral icterus. No injection or drainage. ENT: No nasal bleeding or discharge. Mucous membranes pink and moist. NECK: Trachea midline. No JVD. CARDIOVASCULAR: Regular rate and rhythm. RESPIRATORY: No accessory muscle use. Clear to auscultation. Breath sounds equal bilaterally. pain on breathing GASTROINTESTINAL: Abdomen soft, non-tender, nondistended. Hepatic and splenic margins not palpable. MUSCULOSKELETAL: Extremities without clubbing, cyanosis, plus 1 edema. No obvious deformities. NEUROLOGICAL: Awake and alert. No obvious cranial nerve deficits. Motor grossly within normal limits. Five out of 5 muscle strength in the arms and legs. Normal speech. PSYCHIATRIC: Appropriate mood and affect; insight and judgment normal. Results - Labs CBC & Chem 7: 10/19/17 14:40 10/19/17 14:40 Labs: Laboratory Results - last 24 hr 10/19/17 10/19/17 10/19/17 14:40 14:40 15:00 CBC w Diff Auto diff final WBC 10.1 RBC 3.31 L Hgb 10.2 L Hct 31.5 L MCV 95.3 MCH 30.8 MCHC 32.3 RDW 13.2 Plt Count 220 MPV 7.6 Neut % (Auto) 91.4 H Lymph % (Auto) 4.6 L [place] % (Auto) 2.7 Eos % (Auto) 0.8 Baso % (Auto) 0.5 Neut # (Auto) 9.1 H Lymph # (Auto) 0.5 L [place] # (Auto) 0.3 Eos # (Auto) 0.1 Baso # (Auto) 0.1 WBC Differential . Differential Comment . Sodium 128 L Potassium 4.8 Chloride 95 L Carbon Dioxide 23.4 Anion Gap 10 BUN 52 H Creatinine 1.90 H Estimated GFR 34 L Random Glucose 194 H Calcium 8.8 Total Bilirubin 0.3 AST 8 L ALT 17 Alkaline Phosphatase 54 B-Natriuretic Peptide 147 H Total Protein 6.8 Albumin 3.4 - Imaging Impressions Chest X-Ray 10/19/17 14:00 CONCLUSION: Left upper rib fracture age uncertain. Cardiomegaly and findings of congestive heart failure. Elbow X-Ray 10/19/17 14:00 CONCLUSION: Joint effusion without evidence of fracture. Occult radial head fracture is not excluded Caprini VTE Risk Assessment Caprini VTE Risk Assessment: Moderate/High Risk (score >= 2) Caprini Risk Assessment Model: Point Value = 1 Point Value = 2 Point Value = 3 Point Value = 5 Age 41-60 Minor surgery BMI > 25 kg/m2 Swollen legs Varicose veins or History of unexplained or recurrent spontaneous Oral contraceptives or hormone replacement Sepsis (< 1 month) Serious lung disease, including pneumonia (< 1 month) Abnormal pulmonary function Acute myocardial infarction Congestive heart failure (< 1 month) History of inflammatory bowel disease Medical patient at bed rest Age 61-74 Arthroscopic surgery Major open surgery (> 45 min) Laparoscopic surgery (> 45 min) Malignancy Confined to bed (> 72 hours) Immobilizing plaster cast Central venous access Age >= 75 History of VTE Family history of VTE Factor V Leiden Prothrombin [id number] Lupus anticoagulant Anticardiolipin antibodies Elevated serum homocysteine Heparin-induced thrombocytopenia Other congenital or acquired thrombophilia Stroke (< 1 month) Elective arthroplasty Hip, pelvis, or leg fracture Acute spinal cord injury (< 1 month) Prophylaxis Regimen: Total Risk Factor Score Risk Level Prophylaxis Regimen 0-1 Low Early ambulation 2 Moderate Order ONE of the following: *Sequential Compression Device (SCD) *Heparin 5000 units SQ BID 3-4 Higher Order ONE of the following medications: *Heparin 5000 units SQ TID *Enoxaparin/Lovenox 40 mg SQ daily (WT < 150 kg, CrCl > 30 mL/min) *Enoxaparin/Lovenox 30 mg SQ daily (WT < 150 kg, CrCl > 10-29 mL/min) *Enoxaparin/Lovenox 30 mg SQ BID (WT < 150 kg, CrCl > 30 mL/min) AND/OR *Sequential Compression Device (SCD) 5 or more Highest Order ONE of the following medications: *Heparin 5000 units SQ TID (Preferred with Epidurals) *Enoxaparin/Lovenox 40 mg SQ daily (WT < 150 kg, CrCl > 30 mL/min) *Enoxaparin/Lovenox 30 mg SQ daily (WT < 150 kg, CrCl > 10-29 mL/min) *Enoxaparin/Lovenox 30 mg SQ BID (WT < 150 kg, CrCl > 30 mL/min) AND *Sequential Compression Device (SCD) Assessment and Plan - Assessment (1) Closed rib fracture Code(s): S22.39XA - Fracture of one rib, unspecified side, initial encounter for closed fracture Status: Acute Plan: will give pain meds also requiring oxygen as when he takes breath is hypoxic (2) Congestive heart failure Code(s): I50.9 - Heart failure, unspecified Status: Acute Plan: patient with chronic chf he had his lasix increased from cardiology to lasix 40 bid and is on ARB (3) CKD (chronic kidney disease) stage 3, GFR 30-59 ml/min Code(s): N18.3 - Chronic kidney disease, stage 3 (moderate) Status: Acute Plan: will follow labs (4) Diabetes Code(s): E11.9 - Type 2 diabetes mellitus without complications Status: Acute Plan: use sliding scale as patient has increase in cr 1.9 will hold metformin - Plan will await case management will attempt to discharge with home health to house although i feel needs to be in rehab facility,patient with hx cva on xarelto continue medication and will continue moore for now also will get PT to see patient. and i agree with er in pallative care consult. Code Status: no code Discussed Condition With: patient (1) Closed rib fracture Qualifiers: Encounter type: initial encounter Rib fracture type: single rib Laterality: left Qualified Code(s): S22.32XA - Fracture of one rib, left side, initial encounter for closed fracture (2) Congestive heart failure Qualifiers: Heart failure type: unspecified Heart failure chronicity: acute on chronic Qualified Code(s): I50.9 - Heart failure, unspecified
--- NOTE | 2017-10-19 18:38 | P.PNADD ---
Addendum to Inpatient Note Reason for Addendum: Additional Documentation (Patient has swollen elbow will need sling and we can arrange for ortho to see ,ok as outpatient)
[2017-10-19] MEDS: Morphine Sulfate Inj 2 MG/ML Vial IV.PUSH PRN (19:51)
[2017-10-19] MEDS: Senna/Docusate Sodium 8.6/50 MG Tablet PO SCH (20:27)
[2017-10-19] MEDS: Furosemide 40 MG Tablet PO SCH (20:28)
[2017-10-19] MEDS: Rivaroxaban 15 MG Tablet PO SCH (20:28)
[2017-10-19] MEDS: Ferrous Sulfate 325 MG Tablet PO SCH (20:28)
[2017-10-19] MEDS ORDERED: LINAGLIPTIN PO SCH (21:00)
[2017-10-19] MEDS ORDERED: TELMISARTAN 40 MG PO SCH (21:00)
[2017-10-20] MEDS: Insulin NovoLOG Aspart Correctional Sugar Inj SQ SCH ×4 (00:31→17:13)
[2017-10-20 06:33] LABS: Potassium 4.6 meq/L (3.5-5.1)
[2017-10-20 06:37] LABS: Calcium 8.4 mg/dL (8.5-10.1)
[2017-10-20 06:38] LABS: Carbon Dioxide 28.9 meq/L (21.0-32.0)
[2017-10-20] MEDS: Morphine Sulfate Inj 2 MG/ML Vial IV.PUSH PRN ×4 (07:45→19:58)
[2017-10-20] MEDS: Furosemide 40 MG Tablet PO SCH ×2 (08:00→17:13)
[2017-10-20] MEDS: Senna/Docusate Sodium 8.6/50 MG Tablet PO SCH ×2 (08:00→22:24)
[2017-10-20] MEDS: Allopurinol 100 MG Tablet PO SCH (08:00)
[2017-10-20] MEDS ORDERED: Rivaroxaban 15 MG Tablet PO SCH (09:00)
[2017-10-20] MEDS ORDERED: TELMISARTAN 40 MG PO SCH (09:00)
--- NOTE | 2017-10-20 10:04 | P.DCO ---
- Physical Therapy Order: Improve ambulation - Occupational Therapy Order: Improve ADL - Home Health Nursing Order: Oxygen administration education - Manager Process Order: To provide: Long range planning - Case Management Consult Yes - Certification I have seen patient Prem Marcelino on 10/20/17. My clinical findings support the need for the requested home health care services because: needs oxygen and PT at home Limited mobility due to disease progression, Deconditioned with increased weakness, High risk of falls I certify that my clinical findings support that this patient is homebound because: Impaired cognitive ability/safety, Unsteady gait/balance
--- NOTE | 2017-10-20 10:11 | P.PN ---
Subjective Interval history: Patient with help of physicial therapy up in chair looks more comfortable ,cr improved to 1.8 will follow will get walk test today to see if needs oxygen . Physical Exam Vital signs: Vital Signs 10/19/17 14:12 10/19/17 14:49 10/19/17 16:20 Temperature 98.7 F Pulse Rate 87 86 83 Respiratory Rate 18 20 18 Blood Pressure 190/57 H 170/69 H 167/71 H Pulse Oximetry 95 97 97 10/19/17 16:54 10/19/17 19:35 10/19/17 20:00 Temperature 97.6 F 97.8 F Pulse Rate 94 H 66 Respiratory Rate 20 16 Blood Pressure 192/79 H 153/70 H Pulse Oximetry 96 98 98 10/19/17 20:50 10/20/17 00:00 10/20/17 07:47 Temperature 97.8 F Pulse Rate 62 Respiratory Rate 18 16 Blood Pressure 138/65 Pulse Oximetry 98 97 10/20/17 08:00 10/20/17 09:21 Temperature 97.4 F L Pulse Rate 65 Respiratory Rate 17 Blood Pressure 152/67 H Pulse Oximetry 96 96 Intake & Output 10/19/17 10/20/17 10/20/17 18:59 06:59 18:59 Output Total 400 / 400 1200 / 1200 Balance -400 / -400 -1200 / -1200 Weight 76.6 kg Output: Urine Amount (Catheter) 400 / 400 1200 / 1200 Indwelling Urethral Catheter 400 / 400 1200 / 1200 Other: Date of Last Bowel Movement 10/19/17 10/19/17 Weight On Admission 76.6 kg Narrative: GENERAL: SKIN: Warm and dry. HEAD: Normocephalic. EYES: No scleral icterus. No injection or drainage. NECK: Supple, trachea midline. No JVD or lymphadenopathy. CARDIOVASCULAR: Regular rate and rhythm without murmurs, gallops, or rubs. RESPIRATORY: Breath sounds equal bilaterally. No accessory muscle use. GASTROINTESTINAL: Abdomen soft, non-tender, nondistended. MUSCULOSKELETAL: No cyanosis, or edema. BACK: Nontender without obvious deformity. No CVA tenderness. - Urinary Catheter Management Indwelling Urethral Catheter Cath placed during this visit: no Results - Labs CBC & Chem 7: 10/19/17 14:40 10/20/17 05:15 Laboratory Results - last 24 hr 0710/19/17 10/19/17 14:40 14:40 15:00 CBC w Diff Auto diff final WBC 10.1 RBC 3.31 L Hgb 10.2 L Hct 31.5 L MCV 95.3 MCH 30.8 MCHC 32.3 RDW 13.2 Plt Count 220 MPV 7.6 Neut % (Auto) 91.4 H Lymph % (Auto) 4.6 L [place] % (Auto) 2.7 Eos % (Auto) 0.8 Baso % (Auto) 0.5 Neut # (Auto) 9.1 H Lymph # (Auto) 0.5 L [place] # (Auto) 0.3 Eos # (Auto) 0.1 Baso # (Auto) 0.1 WBC Differential . Differential Comment . Sodium 128 L Potassium 4.8 Chloride 95 L Carbon Dioxide 23.4 Anion Gap 10 BUN 52 H Creatinine 1.90 H Estimated GFR 34 L POC Glucose Random Glucose 194 H Calcium 8.8 Total Bilirubin 0.3 AST 8 L ALT 17 Alkaline Phosphatase 54 B-Natriuretic Peptide 147 H Total Protein 6.8 Albumin 3.4 10/19/17 10/19/17 10/20/17 18:44 21:55 05:15 CBC w Diff WBC RBC Hgb Hct MCV MCH MCHC RDW Plt Count MPV Neut % (Auto) Lymph % (Auto) [place] % (Auto) Eos % (Auto) Baso % (Auto) Neut # (Auto) Lymph # (Auto) [place] # (Auto) Eos # (Auto) Baso # (Auto) WBC Differential Differential Comment Sodium 135 L Potassium 4.6 Chloride 98 Carbon Dioxide 28.9 Anion Gap 8 BUN 48 H Creatinine 1.80 H Estimated GFR 36 L POC Glucose 208 H 231 H Random Glucose 83 D Calcium 8.4 L Total Bilirubin AST ALT Alkaline Phosphatase B-Natriuretic Peptide Total Protein Albumin - Imaging Impressions Chest X-Ray 10/19/17 14:00 CONCLUSION: Left upper rib fracture age uncertain. Cardiomegaly and findings of congestive heart failure. Elbow X-Ray 10/19/17 14:00 CONCLUSION: Joint effusion without evidence of fracture. Occult radial head fracture is not excluded Assessment and Plan - Assessment (1) Closed rib fracture Code(s): S22.39XA - Fracture of one rib, unspecified side, initial encounter for closed fracture Status: Acute Plan: will give pain meds also requiring oxygen as when he takes breath is hypoxic will get walk test today (2) Congestive heart failure Code(s): I50.9 - Heart failure, unspecified Status: Acute Plan: patient with chronic chf he had his lasix increased from cardiology to lasix 40 bid and is on ARB (3) CKD (chronic kidney disease) stage 3, GFR 30-59 ml/min Code(s): N18.3 - Chronic kidney disease, stage 3 (moderate) Status: Acute Plan: will follow labs as there is some improvement (4) Diabetes Code(s): E11.9 - Type 2 diabetes mellitus without complications Status: Acute Plan: use sliding scale as patient has increase in cr 1.9 will hold metformin - Plan case management will attempt to discharge with home health to house although i feel needs to be in rehab facility,patient with hx cva on xarelto continue medication and will continue moore for now also will get PT to see patient. and i agree with er in pallative care consult. Also will contact urology to follow up reguarding oscar (1) Closed rib fracture Qualifiers: Encounter type: initial encounter Rib fracture type: single rib Laterality: left Qualified Code(s): S22.32XA - Fracture of one rib, left side, initial encounter for closed fracture (2) Congestive heart failure Qualifiers: Heart failure type: unspecified Heart failure chronicity: acute on chronic Qualified Code(s): I50.9 - Heart failure, unspecified
[2017-10-20] MEDS: LINAGLIPTIN 5 MG PO SCH (10:33)
--- NOTE | 2017-10-20 12:36 | P.CONPAL ---
Consult Service: Palliative Care Requesting Physician: Tomasa Lund Reason for Consult: a. To assist with evaluation and management of symptoms including: Pain, anxiety, edema b. To assist medical decision maker(s) with: better understanding of current medical conditions; weighing benefits/burdens of medical treatment options; making medical treatment decisions. Primary Care Provider: Elda Ortiz MD History of Present Illness History of Present Illness: This is an 87-year-old male admitted to [facility] after a fall. 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 Also compromising his gait are multiple surgeries on his left femur which left that leg shorter than the right. He ambulates with a hemiwalker, however has been unable to use that for stabilization secondary to injuries he sustained in the fall to include fractured left rib and injury of the left elbow. He complains of significant pain in the left rib area which comes on suddenly, sharp, stabbing, exacerbated by movement or deep inspiration, cough or sneezing. He describes the pain as 10 out of 10, intermittent located in the left upper flank under the axilla. He also complains of edema in bilateral lower extremities as well as his left elbow. The bilateral lower extremity edema is more chronic in nature and is improving with leg elevation. The left elbow edema is acute which occurred after the fall and injury. X-rays revealed a left-sided rib fracture and pulmonary edema. The elbow x-ray did not show a fracture, but did not rule out an occult radial head fracture. Presenting laboratory studies showed WBC 10.1, hemoglobin 10.2, hematocrit 31.5, platelets 220, sodium 128, potassium 4.8, BUN 52, creatinine 1.90. Admitting diagnosis was congestive heart failure however 2D echocardiogram done by his primary ship fitter, Dr. Kostas Montiel on 08/04/2017 showed a normal left ventricular size with moderate concentric left ventricular hypertrophy, ejection fraction of 60-65%, mildly dilated left atrium, mildly dilated proximal ascending aorta, anterior mitral valve leaflet prolapse, moderate to severe mitral valve regurgitation, moderate tricuspid regurgitation with estimated pulmonary artery pressure of 47.7. His reported that he had been found to have a "hole in the front of his heart and the back of his heart. " This finding is not substantiated by the echocardiogram showing a normal atrial septum. No mention of diastolic heart failure was found on the echocardiogram, however but due to the pulmonary edema found on admission this is a possibility which will need to be confirmed by cardiology. Presenting B natruretic peptide was mildly elevated at 147 (0-100). Troponin was not evaluated on admission. He was previously admitted to [facility] 01/29/2017 with a primary diagnosis of cerebrovascular disease, with related diagnosis of Alzheimer's dementia, seizure disorder and chronic atrial fibrillation. He was initially admitted to the [facility] with a PPS of 10% and had some level of recovery during treatment to a PPS of 40% and was discharged home with his family. In a previous hospitalization the patient had been recommended to follow-up with a neurologist and this was not initially done. After consideration, the family decided to follow-up with a neurologist, saw Dr. Sherman, who recommended multiple tests and therapy and the family felt that they needed to explore all avenues of recovery and revoked hospice 02/11/17. At this time the family has exhausted all neurology tests and interventions which provided no recovery. The patient has continued to decline and they are now considering re-enrolling in hospice. The family has determined in conversation with the patient, that he does not wish to be resuscitated and undergo multiple aggressive interventions and would prefer to be treated at home or the [facility] if needed. Hospice consult has been placed. . Function/Cognitive Trajectory: He has become progressively weaker and is having more difficulty managing the hemiwalker in spite of the orthopedic shoe to level the length of both legs. He has suffered recurrent falls and his appetite is declining. He has left hemiparesis and has now suffered an injury to the left elbow and a left rib fracture further compromising his functional status. . Review of Systems Constitutional: Reports lack of energy Cardiovascular: Reports irregular heart rhythm, Reports leg swelling, Reports shortness of breath with activity Respiratory: Reports pain on inspiration, Reports pain with cough Musculoskeletal: Reports deformity, Reports muscle weakness Neurologic: Reports abnormal hearing, Reports localized weakness Psychiatric: Reports anxiety PMFSH - History History Provided By: Patient, Family Member - Medical History Medical History: Medical History (Last Updated 10/20/17 @ 14:09 by JOAQUÍN Albardao) Cataract GERD (gastroesophageal reflux disease) Gout High cholesterol Left displaced femoral neck fracture Anemia BPH (benign prostatic hyperplasia) CVA (cerebral vascular accident) Diabetes Femoral fracture H/O urinary retention Hip fracture Hypertension Peripheral edema Pneumonia TIA (transient ischemic attack) - Surgical History Surgical History: Surgical History (Last Updated 10/20/17 @ 14:06 by JOAQUÍN Albarado) H/O chest tube placement - Tobacco History Second Hand Smoke Exposure: No Tobacco Use In Past 30 Days: No Smoking Status: Never smoker - Alcohol History How Often Do You Have a Drink Containing Alcohol: Never - Substance Use History Substance History: No History of Abuse - Travel History Recent Travel in the [place] Within the Last 8 Weeks: No Recent Travel Out of the Country Within the Last 8 Weeks: No - Immunization History Tetanus Immunization: <5 Years Hx Influenza Vaccine This Season: Yes Medications and Allergies Active Medications: Active Medications Al Hydroxide/Mg Hydroxide (Milk Of Magnesia Liq) 30 ml PO Q12H PRN PRN Reason: Mild Constipation Allopurinol (Zyloprim) 100 mg PO DAILY [facility] Last Admin: 10/20/17 08:00 Dose: 100 mg Bisacodyl (Dulcolax Supp) 10 mg RECTAL DAILY PRN PRN Reason: SEVERE CONSITIPATION Clonidine HCl (Catapres) 0.5 mg PO [facility] Last Admin: 10/19/17 20:28 Dose: 0.5 mg Dextrose (D50w Vial) 50 ml IV.PUSH UNSCH PRN PRN Reason: PER HYPOGLYCEMIA PROTOCOL Ferrous Sulfate (Ferosul) 325 mg PO [facility] Last Admin: 10/19/17 20:28 Dose: 325 mg Furosemide (Lasix) 40 mg PO DAILY@0900,1800 [facility] Last Admin: 10/20/17 08:00 Dose: 40 mg Glucagon (Glucagon Inj) 1 mg OTHER PRN PRN PRN Reason: for Hypoglycemia Protocol Insulin Aspart (Novolog Insulin Suppl Scale Inj) 0 unit SQ Q6HR [facility]; Protocol Last Admin: 10/20/17 11:55 Dose: 2 unit Lactulose (Lactulose Liq) 30 ml PO DAILY PRN PRN Reason: SEVERE CONSITIPATION Losartan Potassium (Cozaar) 50 mg PO [facility] Last Admin: 10/19/17 20:28 Dose: 50 mg Morphine Sulfate (Morphine Inj) 2 mg IV.PUSH Q4H PRN PRN Reason: PAIN 6-10 Last Admin: 10/20/17 11:56 Dose: 2 mg Multivitamins (Theragran) 1 tab PO DAILY [facility] Last Admin: 10/20/17 08:00 Dose: 1 tab Ondansetron HCl (Zofran Inj) 4 mg IV.PUSH Q6H PRN PRN Reason: NAUSEA OR VOMITING Pantoprazole Sodium (Protonix) 40 mg PO DAILY [facility] Last Admin: 10/20/17 10:55 Dose: 40 mg Patient Own: ( Linagliptin [ Tradjenta] 5 Mg) 0 each PO DAILY [facility] Last Admin: 10/20/17 10:33 Dose: Not Given Rivaroxaban (Xarelto) 15 mg PO QPM [facility] Last Admin: 10/19/17 20:28 Dose: 15 mg Senna/Docusate Sodium (Jo Ann-Colace) 1 tab PO BID [facility] Last Admin: 10/20/17 08:00 Dose: 1 tab Sennosides (Senokot) 17.2 mg PO Q12H PRN PRN Reason: Moderate Constipation Temazepam (Restoril) 15 mg PO HS PRN PRN Reason: INSOMNIA Allergies Allergy/AdvReac Type Severity Reaction Status Date / Time azithromycin Allergy Severe Rash Verified 10/19/17 17:39 diatrizoate meglumine Allergy Severe Rash Verified 10/19/17 17:26 gadobenic acid Allergy Severe Rash Verified 10/19/17 17:26 gadodiamide Allergy Severe Rash Verified 10/19/17 17:26 gadoteridol Allergy Severe Rash Verified 10/19/17 17:26 iodine Allergy Severe Rash Verified 10/19/17 17:26 iodixanol Allergy Severe Rash Verified 10/19/17 17:26 iohexol Allergy Severe Rash Verified 10/19/17 17:26 levofloxacin Allergy Severe Confusion Verified 10/19/17 17:26 lisinopril Allergy Severe Rash, Verified 10/19/17 17:26 edema potassium iodide Allergy Severe Rash Verified 10/19/17 17:26 povidone-iodine Allergy Severe Rash Unverified 10/19/17 17:26 sodium iodide Allergy Severe Rash Verified 10/19/17 17:26 sodium iodide Allergy Severe Rash Unverified 10/19/17 17:26 meloxicam Allergy Unknown Unknown Verified 10/19/17 17:26 penicillin G AdvReac Severe Rash Verified 10/19/17 17:26 Home Medications Medication Instructions Recorded Confirmed Type alendronate [Fosamax] 70 mg PO QWEEK 10/17/17 10/17/17 History allopurinol 100 mg PO DAILY 10/17/17 10/17/17 History amlodipine 5 mg PO HS 10/17/17 10/17/17 History atorvastatin See Label Instructions .ROUTE 10/17/17 10/17/17 History .COMPLEX calcium carbonate [Calcium 500] 1,000 mg PO BID 10/17/17 10/17/17 History clonidine HCl 0.5 mg PO BID 10/17/17 10/17/17 History diltiazem HCl [Cartia XT] 180 mg PO BID 10/17/17 10/17/17 History ferrous sulfate [FeroSul] 325 mg PO HS 10/17/17 10/17/17 History finasteride 5 mg PO DAILY 10/17/17 10/17/17 History hydralazine 50 mg PO BID 10/17/17 10/17/17 History linagliptin [Tradjenta] 40 mg PO HS 10/17/17 10/17/17 History metformin 750 mg PO BID 10/17/17 10/17/17 History pantoprazole 40 mg PO DAILY 10/17/17 10/17/17 History rivaroxaban [Xarelto] 15 mg PO QPM 10/17/17 10/17/17 History telmisartan 40 mg PO DAILY 10/17/17 10/17/17 History telmisartan [Micardis] 40 mg PO HS 10/17/17 10/17/17 History terazosin 5 mg PO HS 10/17/17 10/17/17 History Vitamin D3 10/19/17 History alendronate [Fosamax] 70 mg PO QWEEK 10/19/17 10/19/17 History allopurinol 100 mg PO DAILY 10/19/17 10/19/17 History atorvastatin See Label Instructions .ROUTE 10/19/17 10/19/17 History .COMPLEX calcium carbonate [Calcium 500] 1,000 mg PO BID 10/19/17 10/19/17 History clonidine HCl 0.5 mg PO BID 10/19/17 10/19/17 History diltiazem HCl [Cartia XT] 180 mg PO BID 10/19/17 10/19/17 History finasteride 5 mg PO DAILY 10/19/17 10/19/17 History furosemide 40 mg PO BID 10/19/17 10/19/17 History hydralazine 50 mg PO BID 10/19/17 10/19/17 History linagliptin [Tradjenta] 5 mg PO DAILY 10/19/17 10/19/17 History metformin 750 mg PO BID 10/19/17 10/19/17 History multivitamin [Multiple Vitamins] 1 tab PO DAILY 10/19/17 10/19/17 History pantoprazole 40 mg PO DAILY 10/19/17 10/19/17 History rivaroxaban [Xarelto] 15 mg PO DAILY 10/19/17 10/19/17 History tamsulosin 10/19/17 History telmisartan [Micardis] 40 mg PO BID 10/19/17 10/19/17 History Advance Directives Living Will: Unknown Power of Assistant Oceanographer: Unknown Documented care wishes: states patient has a DO NOT RESUSCITATE order at home. . Today's verbally stated goals: Comfort oriented. . Family/friends goals: Comfort oriented. . Ethical and Legal Issues: None noted. . Physical Exam Vital Signs: Vital Signs - 24 hr 10/19/17 14:12 10/19/17 14:49 10/19/17 16:20 Temperature 98.7 F Pulse Rate 87 86 83 Respiratory Rate 18 20 18 Blood Pressure 190/57 H 170/69 H 167/71 H Pulse Oximetry 95 97 97 Pulse Oximetry [Resting on Room Air] 10/19/17 16:54 10/19/17 19:35 10/19/17 20:00 Temperature 97.6 F 97.8 F Pulse Rate 94 H 66 Respiratory Rate 20 16 Blood Pressure 192/79 H 153/70 H Pulse Oximetry 96 98 98 Pulse Oximetry [Resting on Room Air] 10/19/17 20:50 10/20/17 00:00 10/20/17 07:47 Temperature 97.8 F Pulse Rate 62 Respiratory Rate 18 16 Blood Pressure 138/65 Pulse Oximetry 98 97 Pulse Oximetry [Resting on Room Air] 10/20/17 08:00 10/20/17 09:21 10/20/17 11:55 Temperature 97.4 F L Pulse Rate 65 Respiratory Rate 17 Blood Pressure 152/67 H Pulse Oximetry 96 96 Pulse Oximetry [Resting on Room Air] 93 L I&O: Intake & Output 10/18/17 10/19/17 10/20/17 10/21/17 06:59 06:59 06:59 06:59 Output Total 1600 / 1600 1050 / 1050 Balance -1600 / -1600 -1050 / -1050 Weight 168 lb 13.985 oz Physical Exam: CONSTITUTIONAL/GENERAL: This is an adequately nourished patient, in no apparent distress. TUBES/LINES/DRAINS: PIV, An. SKIN: No jaundice, rashes, or lesions. Ecchymoses on upper extremities. No wounds seen anteriorly. Skin temperature appropriate. Not diaphoretic. HEAD: Atraumatic. Normocephalic. EYES: Pupils equal and round and reactive. Extraocular motions intact. No scleral icterus. No injection or drainage. Fundi not examined. ENT: Hearing diminished. Nose without bleeding or purulent drainage. Throat without visible erythema, exudates, masses, or lesions. NECK: Trachea midline. Supple, nontender. No palpable thyroid enlargement or nodularity. CARDIOVASCULAR: S1, S2, irregular rhythm, controlled rate, 1/6 systolic ejection murmur, no rub no gallop. No JVD. Peripheral pulses symmetric. RESPIRATORY/CHEST: Symmetric, unlabored respirations. Clear to auscultation. Breath sounds equal bilaterally. No wheezes, rales, or rhonchi. Left chest wall tender to palpation. GASTROINTESTINAL: Abdomen soft, non-tender, nondistended. No hepato-splenomegaly , or palpable masses. No guarding. Bowel sounds present. GENITOURINARY: Without palpable bladder distension. An catheter in place. MUSCULOSKELETAL: Extremities without clubbing or cyanosis, 1-2+ dependent and left elbow edema. No joint tenderness or effusion noted. No calf tenderness. No mottling or clubbing. LYMPHATICS: No palpable cervical or supraclavicular adenopathy. NEUROLOGICAL: Awake and alert. Left arm flaccid, left leg weak, follows commands. Moves all extremities. PSYCHIATRIC: Mild anxiety, no apparent depression or hallucinations. . Diagnostic Tests Laboratory: Laboratory Results - last 72 hr 10/19/17 10/19/17 10/19/17 14:40 14:40 15:00 CBC w Diff Auto diff final WBC 10.1 RBC 3.31 L Hgb 10.2 L Hct 31.5 L MCV 95.3 MCH 30.8 MCHC 32.3 RDW 13.2 Plt Count 220 MPV 7.6 Neut % (Auto) 91.4 H Lymph % (Auto) 4.6 L [place] % (Auto) 2.7 Eos % (Auto) 0.8 Baso % (Auto) 0.5 Neut # (Auto) 9.1 H Lymph # (Auto) 0.5 L [place] # (Auto) 0.3 Eos # (Auto) 0.1 Baso # (Auto) 0.1 WBC Differential . Differential Comment . Sodium 128 L Potassium 4.8 Chloride 95 L Carbon Dioxide 23.4 Anion Gap 10 BUN 52 H Creatinine 1.90 H Estimated GFR 34 L POC Glucose Random Glucose 194 H Calcium 8.8 Total Bilirubin 0.3 AST 8 L ALT 17 Alkaline Phosphatase 54 B-Natriuretic Peptide 147 H Total Protein 6.8 Albumin 3.4 10/19/17 10/19/17 10/20/17 18:44 21:55 05:15 CBC w Diff WBC RBC Hgb Hct MCV MCH MCHC RDW Plt Count MPV Neut % (Auto) Lymph % (Auto) [place] % (Auto) Eos % (Auto) Baso % (Auto) Neut # (Auto) Lymph # (Auto) [place] # (Auto) Eos # (Auto) Baso # (Auto) WBC Differential Differential Comment Sodium 135 L Potassium 4.6 Chloride 98 Carbon Dioxide 28.9 Anion Gap 8 BUN 48 H Creatinine 1.80 H Estimated GFR 36 L POC Glucose 208 H 231 H Random Glucose 83 D Calcium 8.4 L Total Bilirubin AST ALT Alkaline Phosphatase B-Natriuretic Peptide Total Protein Albumin 10/20/17 11:41 CBC w Diff WBC RBC Hgb Hct MCV MCH MCHC RDW Plt Count MPV Neut % (Auto) Lymph % (Auto) [place] % (Auto) Eos % (Auto) Baso % (Auto) Neut # (Auto) Lymph # (Auto) [place] # (Auto) Eos # (Auto) Baso # (Auto) WBC Differential Differential Comment Sodium Potassium Chloride Carbon Dioxide Anion Gap BUN Creatinine Estimated GFR POC Glucose 181 H Random Glucose Calcium Total Bilirubin AST ALT Alkaline Phosphatase B-Natriuretic Peptide Total Protein Albumin Result Diagrams: 10/19/17 14:40 10/20/17 05:15 Imaging: Chest X-Ray 10/19/17 14:00 CONCLUSION: Left upper rib fracture age uncertain. Cardiomegaly and findings of congestive heart failure. Elbow X-Ray 10/19/17 14:00 CONCLUSION: Joint effusion without evidence of fracture. Occult radial head fracture is not excluded Patient/Family Conference Present at Family Conference: Spoke with patient and his at bedside. Reviewed palliative care purpose and focus. Reviewed goals of care. Patient states that he does not wish to be resuscitated and is in agreement with that. His is interested in resuming hospice care to provide medical visits at home rather than return to the hospital. Patient is in agreement with that. Consult placed to hospice to reevaluate patient for admission. . Issues Discussed: * Palliative care role, purpose, approach * Additional medical, psychosocial, and spiritual history * Patients general health, functional status, and cognitive changes in the months leading up to the current hospitalization * Patient/family understanding of the current medical problems * Patient/family understanding of prognosis * Patients goals of care as best understood from advance directives and/or conversations and/or values * Current medical treatment options and benefits/burdens of those options * Likely scenarios comparing ongoing aggressive care with a transition to comfort measures only * Questions answered to the best of my ability * Palliative care contact information provided Assessment and Plan Pertinent Non-Medical Issues: Psychosocial: He was born in the [place] and worked in a variety of jobs, 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 Spiritual: Uatsdin eliud. Legal: No healthcare surrogate, however his serves as his proxy decision- maker per [place] statutes. At this time the patient prefers joint decision making but is aware that his would be the decision-maker in case of his incapacitation. Ethical issues impacting care: None noted. . Important Contacts: : Rosemarie Marcelino Son: Catina Marcelino . . Prognosis: His prognosis is guarded. He is of advanced age at 87 and has suffered several thrombotic events to include cerebrovascular accident and deep vein thrombosis. He has underlying atrial fibrillation and fairly severe mitral regurgitation, which may be a complicating factor in his pulmonary edema, seen on x-ray on admission. He is currently anticoagulated on Xarelto, however is having recurrent falls, placing him at an elevated risk of a bleeding event. He follows with cardiology who manages his anticoagulation and may need at some time to stop the anticoagulation if his fall risk exceeds his stroke risk. In addition to the left hemiparesis from his cerebrovascular accident, he is also had multiple surgeries on his left leg and hip which have left that leg shorter than the right causing a gait imbalance placing him at even a higher risk for falls. Due to his progressive decline since his cerebrovascular accident, he is at risk for recurrent complications, decline and hospitalizations. He is hospice appropriate and being evaluated at this hospitalization. . Code Status: No Code DNR Plan: PLAN: Legal decision maker: Patient is currently capacitated but has some fluctuations in mentation and prefers to engage in shared decision making with his who would be his proxy decision-maker per [place] statutes. Goals: Comfort oriented. CODE STATUS: DO NOT RESUSCITATE SYMPTOMS: * Anxiety: Patient complains of some anxiety related to his hospitalization and evident decline. He does not have any anxiolytics ordered. Would recommend Ativan 0.5 mg twice daily, as needed for anxiety. * Edema: Improving with leg elevation. He is receiving furosemide 40 mg twice daily. He has chronic left leg edema secondary to the multiple surgeries. His states that at home, he sits up in a chair with his legs dependent. Frequent leg elevation recommended. * Pain: Multifactorial to include his history of chronic pain secondary to multiple surgeries, recent fall with injured left elbow and fractured left rib as well as hospital processes to include invasive lines. He has morphine 2 mg IV every 4 hours available for pain. Would consider transition to oral agent in preparation for discharge home, as he is likely to have sustained pain from the fractured rib. SUMMARY This is an 87-year-old male with a history of cerebrovascular accident with left hemiparesis, multiple left leg surgeries with shortening of the leg and gait instability with multiple falls currently on anticoagulation secondary to a history of thromboembolic events. He is at elevated risk for bleeding secondary to the recurrent falls but also at elevated risk for recurrent thromboembolic event secondary to the atrial fibrillation and sedentary status. He is showing signs of decline in function, nutrition and cognition at this time. His goals are comfort oriented and hospice has been consulted to assist him in managing his comorbidities at home. Palliative care will continue to follow the patient during hospital course as condition evolves, to assist patient/decision-maker with understanding of their medical conditions, weighing benefits/burdens of treatment options, for clarification of goals of treatment. Additionally will assist with any symptoms of palliative concern. . Appreciation Thank you for the opportunity to participate in the care of Prem Marcelino. Attestation Attestation: To help prompt me to consider important information that might be impacting today's encounter and assessment, information from prior notes written by myself or my colleagues may have been "brought forward" into today's note. My signature on this note, however, is an attestation that I personally performed the exam, history, and/or decision-making noted today, and, unless otherwise indicated, the interactions with patient, family, and staff as well as the review of records all occurred today. I also attest that the listed assessment and stated plan reflect my best clinical judgment today based on the combination of historical information, prior notes, and today's exam/ interactions. When time spent is documented, it refers only to time spent today by the signer, or if indicated, combined time spent today by collaborating physician/nurse practitioner. .
[2017-10-20] MEDS: Rivaroxaban 15 MG Tablet PO SCH (17:13)
[2017-10-20] MEDS: Ferrous Sulfate 325 MG Tablet PO SCH (22:20)
[2017-10-21] MEDS: Insulin NovoLOG Aspart Correctional Sugar Inj SQ SCH ×3 (06:08→11:44)
[2017-10-21 07:33] LABS: Potassium 4.1 meq/L (3.5-5.1)
[2017-10-21 07:35] LABS: Calcium 8.3 mg/dL (8.5-10.1)
[2017-10-21 07:36] LABS: Carbon Dioxide 30.5 meq/L (21.0-32.0)
[2017-10-21] MEDS: Senna/Docusate Sodium 8.6/50 MG Tablet PO SCH (08:37)
[2017-10-21] MEDS: Allopurinol 100 MG Tablet PO SCH (08:37)
[2017-10-21] MEDS: Furosemide 40 MG Tablet PO SCH (08:48)
[2017-10-21] MEDS: Morphine Sulfate Inj 2 MG/ML Vial IV.PUSH PRN (08:50)
--- NOTE | 2017-10-21 10:39 | P.DS ---
Date of admission: 10/19/17 15:58 Primary care physician: Elda Ortiz MD Brief History from admission: 87-year-old white male who presents to the emergency department having had a fall yesterday. Patient became unsteady and his tried to catch him but he fell to the ground and hit his left rib cage and elbow on some furniture. He was helped to the bed this morning when he woke up he had severe pain in left chest wall which was constant worse with movement and improved with rest. He was unable to get up due to the pain. His gave him a pain pill that she had at home. Patient and both state he has had frequent falls at home ever since he had a stroke that left chronic weakness on his left side of his body. 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 Of note he came to the emergency room on Friday with difficulty urination and catheter was placed which is still in place at this time. In the emergency room he was found to be hypoxic and he was started on oxygen. Patient had a chest x-ray which showed some mild congestive heart failure although BNP is within normal limits he was given 1 dose of IV Lasix we will continue his p.o. Lasix at this time. We will also ask case management to see what we could do for the patient as he does not want to go to a rehab center. DS: Diagnosis - Discharge Diagnosis (1) Closed rib fracture Status: Acute (2) Congestive heart failure Status: Acute (3) CKD (chronic kidney disease) stage 3, GFR 30-59 ml/min Status: Acute (4) Diabetes Status: Acute DS: Summary Hospital Course: Patient was admitted to hospital after fall at home with fracture to rib causing pain with movement and SOB with some CHF but BNP was normal for patient and i continued his home lasix 40 bid also had some renal ckd stage3 which did improve in hospital to cr 1.6 which will be followed on 10/23/17 with a bmp to be done with home health follow up, Patient will need PT at home ,they did not want rehab center which i felt would help. I also consulted pallative care and they are aware of patient. Will be discharged home today with home health . Patient had hypoxia when initially came in to hospital ,passed walk test and oxygen was 93% and better. Patient to be discharged in stable condition. - Time Spent with Patient Total time spent providing and/or coordinating discharge services: 30minutes - Quality: AMI Clinical Trial Participant: No - Quality: VTE Deep Vein Thrombosis/Pulmonary Embolism Present on Admission: No Exam Vital signs: Vital Signs 10/20/17 11:55 10/20/17 12:00 10/20/17 15:07 Temperature 96.7 F L Pulse Rate 82 Respiratory Rate 17 Blood Pressure 163/73 H Pulse Oximetry 93 L 96 Pulse Oximetry [Resting on Room Air] 93 L 10/20/17 15:55 10/20/17 20:05 10/20/17 22:34 Temperature 96.7 F L 97.2 F L Pulse Rate 79 81 Respiratory Rate 17 18 Blood Pressure 129/70 140/63 Pulse Oximetry 94 L 94 L 97 Pulse Oximetry [Resting on Room Air] 10/21/17 01:49 10/21/17 07:40 10/21/17 08:00 Temperature 98.4 F 99.2 F Pulse Rate 74 95 H Respiratory Rate 18 20 Blood Pressure 144/63 H Pulse Oximetry 92 L 93 L 93 L Pulse Oximetry [Resting on Room Air] Intake & Output 10/20/17 10/21/17 10/21/17 18:59 06:59 18:59 Intake Total 720 / 720 450 / 450 240 / 240 Output Total 3850 / 3850 2900 / 2900 Balance -3130 / -3130 -2450 / -2450 240 / 240 Weight 76.6 kg Intake: Oral 720 / 720 450 / 450 240 / 240 Output: Urine 2800 / 2800 1500 / 1500 Urine Amount (Catheter) 1050 / 1050 1400 / 1400 Indwelling Urethral Catheter 1050 / 1050 1400 / 1400 Other: Date of Last Bowel Movement 10/19/17 10/19/17 # Bowel Movements 0 Results Procedures completed during hospitalization: walk test Labs on day of discharge: Labs from last 24 hours 10/21/17 10/21/17 10/21/17 07:20 06:06 00:08 Sodium 135 L Potassium 4.1 Chloride 98 Carbon Dioxide 30.5 Anion Gap 7 BUN 45 H Creatinine 1.60 H Estimated GFR 41 L POC Glucose 154 H 241 H Random Glucose 152 H Calcium 8.3 L 10/20/17 10/20/17 16:43 11:41 Sodium Potassium Chloride Carbon Dioxide Anion Gap BUN Creatinine Estimated GFR POC Glucose 198 H 181 H Random Glucose Calcium - Impressions ITS Impressions Chest X-Ray 10/19/17 14:00 CONCLUSION: Left upper rib fracture age uncertain. Cardiomegaly and findings of congestive heart failure. Elbow X-Ray 10/19/17 14:00 CONCLUSION: Joint effusion without evidence of fracture. Occult radial head fracture is not excluded Discharge Plan - Discharge Disposition Patient Disposition: W/Home Health Service - Discharge Condition Condition: Stable - Discharge Order Discharge Orders: Discharge Order (Routine); Ordered 10/21/17 Ordered By: Genaro Mendosa - Discharge Details Anticipated Discharge Date: 10/21/17 Discharge Comment: home with home health - Physicians Team Primary Care Provider: Elda Ortiz Attending Provider: Genaro Mendosa Other Providers: Leighton Cole MD
[2017-10-21] MEDS: LINAGLIPTIN 5 MG PO SCH (11:30)
== END 2017-10-21 12:39 | disposition home health service (06) ==
LOC: PH3 13:54 → PHED 13:54 → INTOOBSV 15:58 → PHEDA 15:58 → PH3 16:35
PROVIDERS: ADMIT Internal Medicine; ATTEND Internal Medicine